=== PATIENT | male | born 1945 | race Caucasian/White ===

== ENCOUNTER 2023-06-02 06:15 | Day surgery (SDC) | payer OTHER, SELFPAY ==
[2023-06-02] VITALS (21 sets, daily range): BP systolic 144–169; BP diastolic 75–92; BMI 29.5
[2023-06-02] MEDS: LOW STRENGTH ASPIRIN 81 MG PO (07:16)
[2023-06-02] MEDS: NSS 1000 IV (08:27)
--- NOTE | 2023-06-02 08:31 | PTCARENOTE ---
Pt recd s/p cath. wa unable to access rt radial DSD intact with tegaderm . + pulse and denies pain.. Comfortable , at bedside.
--- NOTE | 2023-06-02 08:35 | ITS.CL.CATH ---
Underwriter Solicitation Director - Catheterization
Cardiac Catheterization
Procedure Report:
CARDIAC CATHETERIZATION REPORT
Date of Procedure: 06/02/2023
Referring: Alli Coats MD
Indication: Abnormal stress test preop spinal stimulator implant in patient with known CAD status post multivessel PCI (2012, 2014)
HEMODYNAMIC DATA
AO: 142/86
LV: 142/18
LEFT VENTRICULOGRAPHY: Severe inferobasal hypokinesis with EF 47%
CORONARY ANGIOGRAPHY
Dominance: Right
Left Main: Normal
LAD: Widely patent proximal to mid LAD stent (2012) with no restenosis. The moderate-sized first diagonal branch has a widely patent proximal stent. At the distal stent margin there is a 50% stenosis undoubtedly representing restenosis from the
balloon overhang segment following stent deployment in 2012. This lesion was not present on the study from 2014 there are otherwise trivial luminal irregularities in the LAD system.
Circumflex: There is a medium sized ramus intermedius branch with focal 60% proximal stenosis-this lesion was not present on the study from 2014. The circumflex proper gives rise to a tiny OM1 and a huge branching OM 2 which has a widely patent
stent (2012) with no restenosis
RCA: Dominant vessel with widely patent proximal and distal stents (2014). There is a shelf-like 30% proximal RCA stenosis and otherwise mild luminal irregularities in the RCA system
Closure Device: 6 Iranian Angio-Seal RFA. Of note, the patient had an excellent right radial artery pulse and we entered the vessel three times with arterial flow but were unable to pass the soft guidewire more than a centimeter or so suggesting
stricture or occlusion.
Radiation (mGy): 40.6
DAP (cm2.Gy): 3.6
Fluoroscopy time: 1.5 minutes
CONCLUSIONS
1: Systemic hypertension
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
3: Moderate branch vessel (ramus, D1) disease with widely patent LAD, OM 2, and RCA stents
4. Recommend continued medical therapy-okay to proceed with spinal stimulator implant. There will be some small risk of very late stent thrombosis if the implanting surgeon decides that aspirin must be held prior to this procedure. If low-dose
aspirin can be continued there will be essentially no meaningful risk of stent thrombosis
Copy to: Alli Coats MD, Tanja Barker MD
Chester Lindsey MD, [facility], [facility]
--- NOTE | 2023-06-02 11:13 | PTCARENOTE ---
pt d//carlos eduardo with all paper work . Rt radial and rt groin both soft non tender with DSD intact. Amb to the BR to void. gait steady. home to the care of his
== END 2023-06-02 11:17 | disposition home or self-care (01) ==
LOC: CATH 06:15
PROVIDERS: ATTENDING PHYSICIAN Internal Medicine Cardiovascular Disease; FAMILY PHYSICIAN Family Medicine; OTHER PHYSICIAN Internal Medicine Clinical Cardiac Electrophysiology
DX: I25.10 Atherosclerotic heart disease of native coronary artery without angina pectoris (principal); Z95.5 Presence of coronary angioplasty implant and graft; I10 Essential (primary) hypertension; E78.5 Hyperlipidemia, unspecified; Z79.82 Long term (current) use of aspirin
CPT/HCPCS: 93005; 93458; C1760; C1894; Q9967

== ENCOUNTER 2023-11-30 15:01 | Inpatient (IN) | payer OTHER, SELFPAY ==
[2023-11-30 10:36] VITALS: BP 160/93
[2023-11-30 11:01] VITALS: BP 136/82
[2023-11-30 12:07] LABS: Urine Albumin Negative (Neg - Trace); Urine Bilirubin Negative (Negative); Urine Character Clear (Clear); Urine Color Yellow; Urine Glucose Negative (Negative); Urine Ketone Negative (Negative); Urine Leukocyte Negative (Negative); Urine Nitrite Negative (Negative); Urine Occult Blood Negative (Negative); Urine Specific Gravity 1.015 (<1.030); Urine Urobilinogen Negative (Neg - 1+)
[2023-11-30 12:21] LABS: % Basophils 0.4 % (0-2); % Eosinophils 0.2 % (0-6); % Immature Granulocytes 0.3 % (0-0.5); % Monocytes 7.5 % (1.7-9.3); % Neutrophils 75.6 % (42.2-75.2); Absolute Basophils 0.1 10^3/uL (0-0.2); Absolute Monocytes 0.9 10^3/uL (0.1-0.6); Absolute Neutrophils 9.3 10^3/uL (1.4-6.5); Blood Urea Nitrogen 23 mg/dl (9-20); Calcium 9.4 mg/dl (8.4-10.2); Carbon Dioxide 32 mmol/L (22-30); Chloride 100 mmol/L (98-107); Glucose 91 mg/dl (70-99); Hemoglobin 13.5 g/dL (13.0-18.0); Mean Corp Hgb Conc. 33.8 g/dL (33.0-37.0); Mean Corpuscular Hgb 28.5 pg (27.0-31.0); Mean Corpuscular Volume 84.4 fL (80.0-94.0); Mean Platelet Volume 9.4 fL (7.4-10.4); Nucleated Red Blood Cells % 0 % (-); Platelet Count 379 10^3/uL (130-400); Potassium 3.8 mmol/L (3.5-5.1); Red Blood Cell Count 4.74 10^6/uL (4.70-6.10); Red Cell Dist. Width 14.2 % (11.5-14.5); Sodium 138 mmol/L (135-145); White Blood Cell Count 12.3 10^3/uL (4.8-10.8); eGFR > 60.00
[2023-11-30 12:34] LABS: Erythrocyte Sed Rate 29 mm/hour (0-20)
--- NOTE | 2023-11-30 12:46 | ED.GENMED ---
History of Present Illness
General
Chief Complaint: Musculo-Skeletal Complaint
Source: patient
Time Seen by Provider: 11/30/23 11:32
History of Present Illness
History of Present Illness:
78-year-old male with past medical history of chronic back pain status post pain stimulator placement, CAD, hypertension, hyperlipidemia presenting to the emergency department for gradually worsening left lower extremity weakness that is been
chronic however over the last 4 to 5 days patient has had increasing weakness with now inability to ambulate or put weight on his left leg. Patient states that there have been a few times where he has attempted to get up but has fallen back into
his chair or bed due to the weakness. He also notes some tingling sensation on the lateral aspect of his leg. He denies any fevers, chills, rigors, nausea, vomiting. He notes that chronically he has a weaker urinary stream and that this is not
any different today than usual. He has seen Dr. Ham in the past and was scheduled to undergo a left hip injection to see if this would help some of his symptoms and this was scheduled for later this week. Patient also sees pain management Dr.
Amee.
Past History
Past History
ED Past Medical History: CAD, GERD, HTN, Hypercholesterolemia and Other (Chronic back pain)
ED Past Surgical History: Cardiac, Cholecystectomy, Orthopedic and Urological
Social History
Tobacco: Non-smoker
Alcohol: None
Drug: None
Personal:
Living: with family
Review of Systems
Review of Systems
All Other Systems: ROS reviewed and negative except as documented in HPI and ROS
Phy Exam
Physical Exam
Physical Exam:
GENERAL: Alert , in no apparent distress
Head: Normocephalic atraumatic
EYE: Clear conjunctiva
NECK: Supple
ENT: o/p clr, mmm.
CARDIAC: Regular rate and rhythm .
LUNGS: Clear breath sounds bilaterally, no acute respiratory distress, no wheezes/rales/rhonchi
ABDOMEN: Soft, without focal tenderness, no r/g, no cvat
NEUROLOGICAL: Alert and oriented x 3, sensation diminished on the lateral aspect of the left lower leg. Proprioception decreased to the left leg compared to the right, patient is unable to lift his left leg up off the bed at the level of the hip.
Patellar deep tendon reflexes absent on the left. Patient with diminished EHL on the left compared to the right
SKIN: Warm and dry, skin intact.
MUSCULOSKELETAL: No edema, well perfused.
PSYCH: Normal and appropriate interaction.
Scores
Heart Failure Risk
Heart Failure Risk Score: Not Applicable
Heart Score for Chest Pain Patients
STEMI patient?: Not applicable
Withdrawal Assessment of Alcohol
Withdrawal Assessment Completed?: Not applicable
Course
Orders/Labs/Results
Orders:
Orders
11/30/23 11:50
Bladder Scan- Treatment ONCE
PT Consult [Pt Eval And Treat] Urgent
Activity Level: Ambulate
11/30/23 11:55
Basic Metabolic Panel Urgent
CRP [C-Reactive Protein] Urgent
Complete Blood Count/With Diff Urgent
ESR [Erythrocyte Sed Rate] Urgent
Urinalysis Reflex To Culture Urgent
Date Specimen was Collected: 11/30/23
Time Specimen was Collected: 11:53
11/30/23 12:39
CR Hip - LT w/wo Pel 2-3 Vw* Urgent
Comment:
Reason For Exam: pain, decreased ROM
Include a pelvis x-ray?: Yes
11/30/23 14:49
MR Left Hip W/o Routine
Comment:
Reason For Exam: left hip pain
Recent pill cam endoscopy?: No
11/30/23 14:52
Admit/Transfer Patient As Directed
Co-Sign Provider:
Level of Care: Inpatient admission
Assign to:: Medical/Surgical
Physician / Group: reshma
Diagnosis: left hip pain
Reason for Hospitalization: left hip pain
Expected length of stay greater than two midnights?: Yes
ELOS- Estimated Length of Stay in days: 3
I certify the patient meets the requirements for IP care: Yes
PRN Pain Medication Management As Directed
May give lesser potent ordered pain med per pt: No
preference::
Protocol:: Medication orders for pain may NOT be administered in
a manner that defers to patient preference. Follow
all order instructions as written.
Contact provider if ordering parameters for pain need
to be adjusted.
11/30/23 14:53
Code Status As Directed
Resuscitation Status: Full Code
11/30/23 14:55
ORTHOPEDIC CONSULT Routine
Consulting Provider: Carroll Nugent
Was physician already notified: Yes
Abnormal Lab Results
11/30/23
11:55
WBC 12.3 H 10^3/uL
(4.8-10.8)
Absolute Neuts (auto) 9.3 H 10^3/uL
(1.4-6.5)
Absolute Monos (auto) 0.9 H 10^3/uL
(0.1-0.6)
Neutrophils % 75.6 H %
(42.2-75.2)
Lymphocytes % 16.0 L %
(20.5-51.1)
ESR 29 H mm/hour
(0-20)
Carbon Dioxide 32 H mmol/L
(22-30)
BUN 23 H mg/dl
(9-20)
C-Reactive Protein 12.90 H mg/L
(0.0-10.00)
11/30/23 11:55
11/30/23 11:55
Vital Signs
Initial and Last Documented VS:
Initial Vital Signs
Temp Pulse Resp BP Pulse Ox
98.0 F 91 16 160/93 98
11/30/23 10:36 11/30/23 10:36 11/30/23 10:36 11/30/23 10:36 11/30/23 10:36
Last Documented Vital Signs
Temp Pulse Resp BP Pulse Ox
98.0 F 90 15 136/82 99
11/30/23 10:36 11/30/23 14:30 11/30/23 14:30 11/30/23 11:01 11/30/23 12:15
MDM/Problems Addressed
Differential Diagnosis Includes:
Cord impingement, disc herniation, less concern for infection given lack of symptoms for infectious etiology, fracture
MDM/Problems Addressed:
78-year-old male presenting emergency department with acute on chronic left lower extremity weakness, now unable to ambulate despite use of walker. Has had 4 separate falls in the last few days as well. Patient does have neurologic findings on
exam however this does appear to be chronic per the patient and spouse. Will check labs, bladder scan, urine. Anticipate patient will need admission given his inability to ambulate and frequent falls. Will likely need physical therapy. Patient
will likely also need MRI to further assess.
Chronic conditions affecting care: Other (Chronic back pain/neurologic impairment)
*Radiology
Radiology exam reviewed: preliminary read by ED provider (No acute fracture of left hip/pelvis)
*Pulse Oximetry
Patient hypoxic: no
*Employee Relations Assistant Interpretation
Rate: normal
Rhythm: sinus
*Critical Care Note
Total Time (30-74mins, 75-104mins- exclusive of procedures): Not Applicable
Data Reviewed
Review of Other/Old Records Reveals: Labs, Records and Radiology Studies
Source: patient, records and spouse
Patient Management
Discussion with other providers: Hospitalist
Escalation/DeEscalation of care consider admission/obs:
Patient was able to use walker with the physical therapy team however they did note he needed to put almost all of his weight onto the walker and that he did not feel comfortable ambulating with the walker and states he did not feel comfortable
going home. Due to his fall risk will admit for further evaluation. Patient's x-ray findings noted for significant degenerative changes of the left hip and possible avascular necrosis. This can be evaluated further with MRI as needed.
Hospitalist team is aware and accepts for continued evaluation and treatment.
ED Attending Note
-
Portions of this chart may have been created with voice recognition software.� Occasional wrong word or��sound alike� substitutions may have occurred due to the inherent limitations of voice recognition software.
Discharge Plan
Departure
Patient Disposition: Admit
Date of Disposition: 11/30/23
Time of Disposition: 13:49
Presentation/result/management discussed w/ accepting MD/DO: Hospitalist
Discharge Problem:
Weakness of left lower extremity, Dorsalgia
Prescriptions:
No Action
rosuvastatin [Crestor] 40 MG tablet
40 mg PO HS
bethanechol chloride 25 MG tablet
25 mg PO DAILY
nebivolol 2.5 MG tablet
2.5 mg PO DAILY 0RF
famotidine 20 MG tablet
20 mg PO HS Qty: 0 0RF
venlafaxine [Effexor XR] 37.5 mg Capsule,Extended Release 24hr
112.5 mg PO DAILY
hydrocodone-acetaminophen 5-325 mg Tablet
1 tab PO BIDPRN PRN (Reason: moderate pain)
meclizine 25 mg Tablet
25 mg PO DAILYPRN PRN (Reason: before mri or/and test)
calcium polycarbophil [FiberCon] 625 mg Tablet
1,250 mg PO BID
docusate sodium [Colace] 100 mg Capsule
100 mg PO BIDPRN PRN (Reason: constipation)
losartan-hydrochlorothiazide 50-12.5 mg Tablet
1 tab PO DAILY
ibuprofen-acetaminophen [Advil Dual Action] 125-250 mg Tablet
1 tab PO Q8HPRN PRN (Reason: mild pain)
aspirin 81 MG tablet,delayed release (DR/EC)
162 mg PO DAILY
Referrals:
Tanja Barker MD [Family Provider] -
Discharge Date and Time
Print Language: LITHUANIAN
[2023-11-30 13:53] VITALS: BP 136/82; PULSE 87; O2SAT 98
--- NOTE | 2023-11-30 14:16 | HPS.HSE ---
Addendum entered and electronically signed by Pura Ritchie MD 11/30/23 16:23:
see my update note for addendum
Original Note:
Family Physician
-
Family Physician: Tanja Barker
Chief Complaint
-
Left LE pain and weakness
History of Present Illness
78-year-old male with past medical history of chronic back pain status post pain stimulator placement, CAD, hypertension, hyperlipidemia presenting to the emergency department for gradually worsening left lower extremity weakness, left buttocks,
thigh pain progressively getting worse for past 4-6 weeks. patient able to walk shorter distance but his LE gives up or gets buckled up. patient stated four falls within last month. patient stated worsening buttocks pain, radiating to groin and
Upper thigh.He denies any fevers, chills, rigors, nausea, vomiting. denied GARVEY,dizzy or synocpal episode. denied chest pain, sob. denied abdominal pain,n,v,d. denied dysuria or hematuria. He has seen Dr. Ham in the past and was scheduled to undergo
a left hip injection to see if this would help some of his symptoms and this was scheduled for later this week.
admitting for further management.
Medical History
Past Medical History
Past Medical History: Reports Other
Additional Past Medical History:
Hypertension hyperlipidemia GERD depression
, Coronary disease
Past Surgical History: Reports Other
Additional Past Surgical History:
Cholecystectomy
Appendectomy
Cardiac stents
Social History
Tobacco: Former Smoker
Alcohol: Occasional
Drug: None
Personal:
Living: With Family
Family History
Family History: Not pertinent
Allergies / Home Medications
Allergies reflects when Allergies were last updated in [employer].
Home Medications with original date entered in [facility]
Allergy/Medication List:
Allergies
Allergy/AdvReac Type Severity Reaction Status Date / Time
No Known Allergies Allergy Verified 11/30/23 10:38
Home Medications
venlafaxine 150 mg capsule,extended release 24 hr (Effexor XR) 375 mg PO DAILY 10/21/12
losartan 100 mg-hydrochlorothiazide 12.5 mg tablet 1 tab PO DAILY 07/17/14
rosuvastatin 40 mg tablet (Crestor) 40 mg PO HS 09/02/21
bethanechol chloride 25 mg tablet 25 mg PO DAILY 09/25/21
tramadol 50 mg tablet 50 mg PO Q6HPRN PRN pain 09/25/21
acetaminophen 500 mg tablet (Tylenol Extra Strength) 1,000 mg (2 x 500 mg) PO Q6H 09/26/21
aspirin 81 mg tablet,delayed release 2 tab PO DAILY ##0 09/26/21
famotidine 20 mg tablet 20 mg PO HS ##0 09/26/21
nebivolol 2.5 mg tablet 2.5 mg PO DAILY 09/26/21
tamsulosin 0.4 mg capsule 0.4 mg PO HS #5 caps 09/26/21
Review of Systems
-
Constitutional: Reports No Symptoms
EENT: Reports No Symptoms
Respiratory: Reports No Symptoms
Cardiac: Reports No Symptoms
Abdomen/GI: Reports No Symptoms
: Reports No Symptoms
Musculoskeletal: Reports Other (Left buttocks pain radiating to groin and thigh)
Skin: Reports No Symptoms
Neurological: Reports No Symptoms
Endocrine: Reports No Symptoms
Hematologic/Lymphatic: Reports No Symptoms
Psych: Reports No Symptoms
Physical Exam
Vital Signs
Vital Signs
Temp Pulse Resp BP Pulse Ox
98.0 F 87 22 136/82 99
11/30/23 10:36 11/30/23 12:30 11/30/23 12:15 11/30/23 11:01 11/30/23 12:15
Physical Exam
General: Well Developed, Well Nourished and No Apparent Distress
HEENT: NormoCephalic, Moist mucous membranes and Atraumatic
Respiratory: Clear
Cardiac: S1/S2 and Regular Rhythm; No Murmur or Rub
GI: Soft, Non Tender, Non Distended and Normal Bowel Sounds; No Organomegaly
Rectal: Deferred by Provider
Musculoskeletal: No Clubbing, No Cyanosis and No Edema
Skin: No Rash
Neuro: AO x 3 and Nonfocal/grossly intact
Psych: Calm
Laboratory Results
-
11/30/23 11:55
11/30/23 11:55
Data Reviewed
-
Diagnostic Radiology: Report Reviewed by me
Lab Data: Labs Reviewed by me
Impression/Plan
-
#acute on chornic LLE/frequent fall likely sciatica pain
-MRI of left left LE
-PT/OT
-ESR 29, CRP 12.90
-Hip X ray with Severe deformity of the left femoral head, with severe degenerative change of the left hip joint. Left hip changes are new compared to prior CT dated 02/02/2013.Differential considerations include severe osteoarthritis, avascular
necrosis, among others.
-orthopedic consult
#leukocytosis likely stress reaction
-wbc12.3
-UA negative
# Depression
-Effexor continued
#essential hypertension
-BP stable
-Losartan continued
# History of cardiac stents
-Aspirin continued
# Tachycardia
-Nebivolol continued
#DVT prophylaxis
- Lovenox subcu
# CODE STATUS
-Full code
--- NOTE | 2023-11-30 16:11 | W.PN.UPDATE ---
Update Note
Progress Note Update
I saw and examined the patient.
The POINTER MACHINE OPERATOR or PA's note was reviewed and I agree with the note.
Comment: 78 y/o M hx of spinal surgery and pain stimulator, chronic LLE weakness presents with acute weakness and ambulatory dysfunction, associated with episodic L hip/groin pain. He is due to for a steroid injection in the hip on Thursday with
pain management. He denies any loss of bowel/bladder function, no focal weakness in other extremities. no other CVA symptoms. No other complaints.
in ER, MRI studies were ordered.
Physical Exam
General: Well Developed, Well Nourished and No Apparent Distress
HEENT: Normocephalic, Moist mucous membranes and Atraumatic
Respiratory: Clear
Cardiac: S1/S2 and Regular Rhythm; No Murmur or Rub
GI: Soft, Non Tender, Non Distended and Normal Bowel Sounds; No Organomegaly
Rectal: Deferred by Provider
Musculoskeletal: No Clubbing, No Cyanosis and No Edema
Skin: No Rash
Neuro: AO x 3 and Nonfocal/grossly intact
Psych: Calm
Assessment:
Acute on chronic LLE/frequent fall likely sciatica pain
- hip X ray with Severe deformity of the left femoral head, with severe degenerative change of the left hip joint. Left hip changes are new compared to prior CT dated 02/02/2013.Differential considerations include severe osteoarthritis, avascular
necrosis, among others.
- check MRI L spine, pelvis, and L hip
- PT/OT
- ESR/CRP noted, mildly elevated, monitor for now
- orthopedic consult
leukocytosis likely stress reaction
- wbc 12.3
- UA negative
Depression
- Effexor continued
Essential hypertension
- BP stable
- losartan continued
History of cardiac stents
- aspirin continued
Tachycardia
- nebivolol continued
DVT prophylaxis: Lovenox
Code: Full
[2023-11-30 17:19] VITALS: BMI 30.7
[2023-11-30 17:38] VITALS: BP 156/84
[2023-11-30] MEDS: LOVENOX 40 MG SC (17:51)
[2023-11-30] MEDS: PEPCID 20 MG PO (20:42)
[2023-11-30] MEDS: CRESTOR 40 MG PO (20:43)
[2023-11-30] MEDS: FLOMAX 0.4 MG PO (20:43)
[2023-11-30] MEDS: TYLENOL 650 MG PO (20:45)
--- NOTE | 2023-11-30 21:02 | CON.ORTHO ---
Consultation
-
Date/Time Consultation Requested: 3 PM 11/30/2023
Date/Time Consultation Performed: 845 PM 11/30/2023
Requesting Provider: David
Performing Provider: Raffi
Reason for Consultation: Left groin pain
Consultation - Orthopedics
History
HPI: 78-year-old male history of chronic back pain presented to the emergency department with complaints of left groin pain and leg pain and ambulatory dysfunction. He was subsequently admitted to the medical service for ambulatory dysfunction and
orthopedics was consulted for further evaluation and treatment of left groin pain. He has followed with Dr. Ham in the past for back pain is undergone multiple laminectomy procedures according to the patient. Reports that more recently he was seen
by him and told that there was no further surgical options for his chronic back pain. He does have a spinal stimulator and has been following with pain management undergoing periodic injections in his back with good relief. He reports that over
the last month or so has had progressively worsening pain and weakness to the left lower extremity. He actually had an appointment scheduled with his pain management physician to undergo a left hip injection as he had some evidence outpatient basis
of reportedly left hip osteoarthritis. At this evening patient reports both back and buttock pain as well as some left leg weakness. He is also localizing pain to the left groin is made worse with any motion to the left hip as well as with
ambulation. Denies any significant numbness or tingling this evening but does report sensation of heaviness in his leg. Denies any significant change in bowel or bladder habits
Allergies / Home Medications
Past medical history: Hypertension, hyperlipidemia, GERD, coronary disease, lumbar DDD
Past surgical history: Cholecystectomy, appendectomy, laminectomy, placement of cardiac stents
Social history: Former smoker, lives with
Family history not pertinent
Allergy/AdvReac Type Severity Reaction Status Date / Time
No Known Allergies Allergy Verified 11/30/23 10:38
�Medication �Instructions �Recorded
rosuvastatin 40 mg tablet (Crestor) 40 mg PO HS 09/02/21
bethanechol chloride 25 mg tablet 25 mg PO DAILY 09/25/21
famotidine 20 mg tablet 20 mg PO HS ##0 09/26/21
nebivolol 2.5 mg tablet 2.5 mg PO DAILY 09/26/21
Effexor 225 tab PO DAILY 11/30/23
aspirin 81 mg tablet,delayed 162 mg PO DAILY 11/30/23
release
calcium polycarbophil 625 mg 1,250 mg PO BID 11/30/23
tablet (FiberCon)
docusate sodium 100 mg capsule 100 mg PO BIDPRN PRN constipation 11/30/23
(Colace)
hydrocodone 5 mg-acetaminophen 325 1 tab PO BIDPRN PRN moderate pain 11/30/23
mg tablet
ibuprofen 125 mg-acetaminophen 250 1 tab PO Q8HPRN PRN mild pain 11/30/23
mg tablet (Advil Dual Action)
losartan 50 mg-hydrochlorothiazide 1 tab PO DAILY 11/30/23
12.5 mg tablet
meclizine 25 mg tablet 25 mg PO DAILYPRN PRN before mri 11/30/23
or/and test
Vital Signs / Lab Results
Temp Pulse Resp BP Pulse Ox
98.3 F 85 20 156/84 99
11/30/23 17:38 11/30/23 17:38 11/30/23 17:38 11/30/23 17:38 11/30/23 17:38
11/30/23 11:55
11/30/23 11:55
10 point review systems reviewed and negative unless otherwise stated
General: Pleasant, no acute distress at rest
Musculoskeletal left lower extremity
Skin intact, no erythema, no ecchymosis
There is restriction with passive range of motion of left hip does reproduce groin pain there is no significant tenderness palpation over groin or lateral trochanteric flare
Patient with weakness with hip flexion although does have fairly good strength with resisted knee extension ankle dorsiflexion, great toe extension
Sensation is intact to light touch and equal in all distributions distally
No clonus
Brisk cap refill distally
Diagnostic studies
X-rays of left hip taken during this hospitalization reviewed by myself. There is significant loss of sphericity of the left femoral head with evidence of collapse and significant joint space narrowing. I am not able to access any previous imaging
of the left hip and PACS but there is noted in the radiology report that compared to the CT scan dated 02/02/2023 this did represent considerable change
Assessment / Plan
78-year-old male history of chronic back pain with worsening left groin pain and weakness with radiographic evidence and clinical evidence of left hip DJD. I had a long detailed discussion the patient regarding diagnosis and treatment options.
Certainly it somewhat difficult to accurately understand how much of his symptoms are referred from his chronic back pain versus related to his left hip osteoarthritis. Would not recommend any acute surgical intervention. We discussed treatment
options. He did have a scheduled on outpatient basis an intra-articular left hip injection both for therapeutic and diagnostic purposes. We discussed following up with pain management physician to have this performed. We also discussed following
up with hip and knee specialist. He does have a history of left total knee arthroplasty performed by Dr. Beth MIRANDA in the past. Certainly would recommend following up with him to get his opinion regarding treatment options. We did discuss that
typically you have to wait at least 3 months following the intra-articular injection before consideration of any arthroplasty type procedure. He stated his understanding to this. There is some documentation of the obtaining MRIs of his hip and
back. I am not sure that this will change any acute management but might give us better understanding if there is in fact evidence of avascular necrosis of the head of the left femur. Please reach out any questions or concerns.
[2023-11-30] MEDS: ULTRAM 50 MG PO (22:56)
[2023-11-30 23:37] VITALS: BP 143/86
[2023-12-01] MEDS: TORADOL 15 MG IV (01:12)
[2023-12-01] MEDS: MORPHINE SULFATE 1 MG IV (06:10)
[2023-12-01 07:01] LABS: Hematocrit 38.1 % (39.0-52.0); Hemoglobin 12.7 g/dL (13.0-18.0); Mean Corp Hgb Conc. 33.3 g/dL (33.0-37.0); Mean Corpuscular Hgb 28.9 pg (27.0-31.0); Mean Corpuscular Volume 86.8 fL (80.0-94.0); Mean Platelet Volume 9.5 fL (7.4-10.4); Platelet Count 334 10^3/uL (130-400); Red Blood Cell Count 4.39 10^6/uL (4.70-6.10); Red Cell Dist. Width 13.9 % (11.5-14.5); White Blood Cell Count 11.8 10^3/uL (4.8-10.8)
[2023-12-01 07:22] LABS: Blood Urea Nitrogen 21 mg/dl (9-20); Carbon Dioxide 29 mmol/L (22-30); Chloride 99 mmol/L (98-107); Estimated Creatinine Clearance 82 ml/min; Glucose 106 mg/dl (70-99); Potassium 3.9 mmol/L (3.5-5.1); Sodium 136 mmol/L (135-145); eGFR > 60.00
[2023-12-01 07:36] VITALS: BP 156/96
[2023-12-01] MEDS: URECHOLINE 25 MG PO (07:46)
[2023-12-01] MEDS: HYZAAR 100-12.5 TABLET 1 TAB PO (07:47)
[2023-12-01] MEDS: EFFEXOR XR 225 MG PO (07:47)
[2023-12-01] MEDS: ASPIR LOW (ENTERIC COATED) 162 MG PO (07:47)
[2023-12-01] MEDS: BYSTOLIC 2.5 MG PO (07:47)
[2023-12-01 08:10] LABS: Hepatitis C Antibody Negative (Negative)
[2023-12-01] MEDS: ANTIVERT 25 MG PO ×2 (08:52→16:26)
--- NOTE | 2023-12-01 09:48 | W.PN.HOSP.TC ---
Today's Communication/Plan
-
MRI L hip
pain control
PT/OT
Assessment / Plan
Assessment / Plan
Assessment:
Acute on chronic LLE/frequent fall likely sciatica pain
- hip X ray with Severe deformity of the left femoral head, with severe degenerative change of the left hip joint. Left hip changes are new compared to prior CT dated 02/02/2013.Differential considerations include severe osteoarthritis, avascular
necrosis, among others.
- check MRI L hip
- ortho consulted noted
- PT/OT evals pending
- ESR/CRP noted, mildly elevated, monitor for now
- patient consider THR and for now has cancelled L hip CS injection that was planned tomorrow outpatient with pain management.
leukocytosis likely stress reaction
- wbc 12.3 now 11.8
- UA negative
Depression
- Effexor continued
Essential hypertension
- BP stable
- losartan continued
History of cardiac stents
- aspirin continued
Tachycardia
- nebivolol continued
DVT prophylaxis: Lovenox
Code: Full
Anticipated Discharge: Within 24 hours
Subjective/Interval History
-
Date of Service: December 01, 2023
for MRI today
no complaints
Objective Data
-
Labs:
Laboratory Results
12/01/23
06:25
WBC 11.8 H
Hgb 12.7 L
Hct 38.1 L
Plt Count 334
Sodium 136
Potassium 3.9
Chloride 99
Carbon Dioxide 29
BUN 21 H
Creatinine 0.8
Glucose 106 H
Calcium 9.0
Vital Signs:
Vital Signs
Temp Pulse Resp BP Pulse Ox
97.7 F 89 20 156/96 98
12/01/23 07:36 12/01/23 07:36 12/01/23 07:36 12/01/23 07:36 12/01/23 07:36
I&O
11/30/23 12/01/23 12/02/23
06:59 06:59 06:59
Intake Total 240 / 240
Output Total 600 / 600
Balance -360 / -360
Physical Exam
-
General: No Apparent Distress
HEENT: Normocephalic and Atraumatic
Respiratory: Negative Wheezes
Cardiac: Regular Rhythm and S1/S2
GI: Soft
Neuro: AO x 3
Psych: Calm
Data Reviewed
-
Total Time Spent with Patient (in minutes): 42
Labs: Labs Reviewed by me
--- NOTE | 2023-12-01 12:30 | W.DS.TRANS ---
DC Summary - T [employer]
-
Discharge Instructions:
Discharge Diagnosis/Procedures L hip pain, joint pain, ambulatory dysfunction
Diet Low Cholesterol
Activity As tolerated
Bathing Restrictions None
Other Services OT,PT
Instructions:
Stand-Alone Forms:
Changes to Home Medications: No
Discharge Medications:
DC Medications w/original date entered in [employer]
rosuvastatin 40 mg tablet (Crestor) 40 mg PO HS High Cholesterol 09/02/21
bethanechol chloride 25 mg tablet 25 mg PO DAILY 09/25/21
famotidine 20 mg tablet 20 mg PO HS ##0 09/26/21
nebivolol 2.5 mg tablet 2.5 mg PO DAILY 09/26/21
Effexor 225 tab PO DAILY Mental Health/Anxiety 11/30/23
aspirin 81 mg tablet,delayed release 162 mg PO DAILY Blood Clot Prevention/Tx 11/30/23
calcium polycarbophil 625 mg tablet (FiberCon) 1,250 mg PO BID Constipation 11/30/23
docusate sodium 100 mg capsule (Colace) 100 mg PO BIDPRN PRN constipation 11/30/23
hydrocodone 5 mg-acetaminophen 325 mg tablet 1 tab PO BIDPRN PRN moderate pain 11/30/23
ibuprofen 125 mg-acetaminophen 250 mg tablet (Advil Dual Action) 1 tab PO Q8HPRN PRN mild pain 11/30/23
losartan 50 mg-hydrochlorothiazide 12.5 mg tablet 1 tab PO DAILY Blood Pressure 11/30/23
meclizine 25 mg tablet 25 mg PO DAILYPRN PRN before mri or/and test 11/30/23
Home Medication Changes
Pending Results: No
Total time spent discharging patient (in min): 41
[2023-12-01 12:49] VITALS: BP 142/86; PULSE 81
[2023-12-01] MEDS: ULTRAM 50 MG PO (12:58)
--- NOTE | 2023-12-01 13:02 | CM ---
Initial assessment obtained by director case management.
Patient lives at home with in 2 story home with full bath on 1st floor.
1 step to get into home.
Patient states has a bed on 1st floor.
Ambulates with a walker. Driving prior to admission.
Discussed visiting nurse with patient and he declined.
PCP: Shannon Coello
Pharmacy: [facility]
Plan: Patient discharged to home. to transport.
[2023-12-01 15:26] VITALS: BP 134/76
== END 2023-12-01 17:29 | disposition home or self-care (01) | DRG 552 ==
LOC: 4 WEST ACU 15:01
PROVIDERS: Physician Assistant Medical; Registered Nurse; ADMITTING PHYSICIAN Internal Medicine; EMERGENCY PHYSICIAN Emergency Medicine; FAMILY PHYSICIAN Family Medicine; OTHER PHYSICIAN Orthopaedic Surgery
DX: M54.32 Sciatica, left side (principal); M25.552 Pain in left hip; G89.29 Other chronic pain; M54.9 Dorsalgia, unspecified; I25.10 Atherosclerotic heart disease of native coronary artery without angina pectoris; K21.9 Gastro-esophageal reflux disease without esophagitis; D72.829 Elevated white blood cell count, unspecified; M16.12 Unilateral primary osteoarthritis, left hip; R29.6 Repeated falls; M51.36 Other intervertebral disc degeneration, lumbar region; F32.A Depression, unspecified; I10 Essential (primary) hypertension; E78.00 Pure hypercholesterolemia, unspecified; Z90.49 Acquired absence of other specified parts of digestive tract; Z79.82 Long term (current) use of aspirin; Z95.5 Presence of coronary angioplasty implant and graft; Z87.891 Personal history of nicotine dependence
CPT/HCPCS: 51798; 72072; 72110; 72195; 73502; 73721; 80048; 81003; 85025; 85027; 85652; 86140; 86803; 97166; 97530; 97535; 99285

== ENCOUNTER → 2023-12-07 11:06 | Outpatient (REF) | payer OTHER, SELFPAY ==
[2023-12-07 11:20] VITALS: BP 143/72; BP_SYST 80
== END ==
LOC: RADI 11:06
PROVIDERS: ATTENDING PHYSICIAN Orthopaedic Surgery Sports Medicine; FAMILY PHYSICIAN Family Medicine
DX: M25.552 Pain in left hip (principal); M25.852 Other specified joint disorders, left hip
CPT/HCPCS: 10160; 76942

== ENCOUNTER 2024-02-04 16:49 | Inpatient (IN) | payer OTHER, SELFPAY ==
[2024-02-04] VITALS (19 sets, daily range): BP systolic 86–135; BP diastolic 54–107; BMI 35.1; BMI 33.4
--- NOTE | 2024-02-04 14:46 | EDRN ---
Kira Kelly PA in room w/ pt at this time.
--- NOTE | 2024-02-04 14:53 | ED.GENMED ---
History of Present Illness
General
Chief Complaint: Heart Rate Problem
Source: patient and spouse
Time Seen by Provider: 02/04/24 14:34
History of Present Illness
History of Present Illness:
78-year-old male with a past medical history of CAD status post coronary stenting, hypertension, hyperlipidemia, status post recent left total knee replacement presenting to the emergency department at request of primary care provider with concern
for possible CHF. Patient has endorsed at least 1 week of bilateral lower extremity edema and some shortness of breath, at appointment today was found to have edema and exertional dyspnea so was advised to come to the ER for further evaluation.
And follow-up visit with Ortho following his knee surgery patient did have some edema of the left leg but this was reportedly normal per orthopedics but now patient with bilateral edema. He denies any cough, palpitations, fevers or infectious
symptoms presently but notes that last week he did have a mild upper respiratory infection with patient stating all symptoms seem to be resolved now. Social history was noted for former smoker, quit 50 years ago, and has 2-3 drinks per week.
Patient is on two 81 mg aspirins since his surgery and reports good compliance with this.
Past History
Past History
ED Past Medical History: CAD, GERD, HTN, Hypercholesterolemia and Other (Chronic back pain)
ED Past Surgical History: Cardiac, Cholecystectomy, Orthopedic and Urological
Social History
Tobacco: Former smoker
Alcohol: Occasional
Drug: None
Personal:
Living: with family
Review of Systems
Review of Systems
All Other Systems: ROS reviewed and negative except as documented in HPI and ROS
Phy Exam
Physical Exam
Physical Exam:
GENERAL: Alert , in no apparent distress
HEAD: NCAT
EYE: clear conjunctiva
NECK: Supple
ENT: mmm.
CARDIAC: Irregularly irregular, tachycardic rate between 125-151bpm
LUNGS: faint rales posterior base, no tachypnea, no accessory muscle use
ABDOMEN: Soft, without focal tenderness, no r/g, no cvat
NEUROLOGICAL: Alert and oriented
SKIN: Warm and dry, skin intact.
MUSCULOSKELETAL:significant 2+ b/l LE edema, left slightly worse than right. Well healed surgical incision anteriorly without signs of infection, well perfused.
PSYCH: Normal and appropriate interaction.
Scores
[id number] Score for Afib Stroke Risk
Age in Years (65=0, 65-74=1, >/=75=2): > or = 75
Sex (Female=+1): Male
Congestive Heart Failure History (Yes=+1): Yes
Hypertension History (Yes=+1): Yes
Stroke/TIA/Thromboembolism History (Yes=+2): No
Vascular Disease History (Yes=+1): No
Diabetes Mellitus (Yes=+1): No
Score: 4
Anticoagulation Recommendations: Recommend anticoagulation (as validated in nonvalvular fib)
Heart Failure Risk
Heart Failure Risk Score: Yes
History of Stroke or TIA: No
History of intubation for respiratory distress: No
Heart rate on ED arrival >/= 110: Yes
SaO2 <90% on arrival on room air: No
HR >/=110 during 3min walk test (or too ill to perform test): Yes
ECG has acute ischemic changes: No
Urea >/=12mmol/L (BUN 33.6mg/dL): No
Serum CO2>/=35mmol/L: No
Troponin I or T elevated to DC Level (0.4mg/dL): No
NT-proBNP >/=5,000ng/L (5,000pg/ml): Yes
HF Risk Score: 3
Admission Status: HIGH RISK 15.9% Consider SNF treatment or admission to hospital
Heart Score for Chest Pain Patients
STEMI patient?: Not applicable
Withdrawal Assessment of Alcohol
Withdrawal Assessment Completed?: Not applicable
Course
Orders/Labs/Results
Orders:
Orders
02/04/24 14:27
Electrocardiogram (*1) Urgent
Reason for Study: Shortness of Breath
EKG- Treatment ONCE
02/04/24 14:49
Diltiazem HCl [Cardizem] 10 mg IV NOW STA
Furosemide [Lasix] 40 mg IV NOW STA
Venous Doppler Lwr Ext Bilat [US Periph Venous LOWER Ext Rod] Urgent
Comment:
Reason For Exam: recent surgery, edema
02/04/24 14:50
Cardiac Monitoring- Treatment ONCE
CR Chest - 2 Views Urgent
Comment:
Reason For Exam: SOB, new onset afib
02/04/24 14:59
Basic Metabolic Panel Urgent
Complete Blood Count/With Diff Urgent
Ferritin Urgent
Folate Urgent
Iron Urgent
Magnesium Urgent
NT-proBNP Urgent
PTT Urgent
Prothrombin Time Urgent
TSH Urgent
Total Iron Binding Urgent
Vitamin B12 Urgent
Comment: IRON,FERRITIN,TIBC,FOLATE,B12 ADDED ON BY FLOOR 4:20PM 02-04-24
02/04/24 Dinner
Cholesterol Lowering
At Your Request: Full Participation
Does patient need a safe tray?: No
Cholesterol Lowering: Sodium, 2 Gram
Diltiazem 125 mg/125 ml Nss [Cardizem] 125 mg in 125 ml IV PER PROTOCOL
Initial dose in mg/hr, then titrate:: 5
Titrate to keep:: Heart rate 80-100 bpm
Titrate by mg/hr:: 5 mg/hr
Frequency of titrations (minutes):: 15
Maximum dose in mg/hr:: 15
02/04/24 16:19
Add On- LAB Routine
Tests Added?: iron, ferritin, tibc, folate, vit b12
02/04/24 16:26
Admit/Transfer Patient As Directed
Co-Sign Provider:
Level of Care: Inpatient admission
Assign to:: IVU
Physician / Group: Jagjit
Diagnosis: Afib / CHF
Reason for Hospitalization: Cardizem drip
Expected length of stay greater than two midnights?: Yes
ELOS- Estimated Length of Stay in days: 3
I certify the patient meets the requirements for IP care: Yes
02/04/24 16:30
PRN Pain Medication Management As Directed
May give lesser potent ordered pain med per pt: Yes
preference::
Protocol:: Medication orders for pain may be administered in a
manner that supports deferring to patient preference
when the pt is:
- Requesting an ordered lesser potent pain medication.
Least to most potent pain medications are defined
as: acetaminophen < NSAID < tramadol < opioids
(morphine, oxycodone, hydromorphone).
- Requesting a lesser dose of the same medication IF
ORDERED.
- Requesting a less intrusive route of administration
if both routes are prescribed by the provider (PO <
IV).
02/04/24 16:34
Code Status As Directed
Resuscitation Status: Full Code
02/04/24 18:33
Echo 2D MMode Color/Doppler Routine
Reason for Study: heart failure
CARDIOLOGY CONSULT Routine
Consulting Provider: Delfino Henning
Was physician already notified: Yes
HF DIETARY CONSULT Routine
HF EDUCATOR CONSULT Routine
Comment:
Activity As Directed
Activity Level: Out of Bed- Chair
Hemetest Stools As Directed
Comment: Notify Physician of any positive results; May Stop if Negative x 3
Intake/ Output As Directed
Frequency: Per unit guidelines
Patient Education As Directed
Type: CHF folder
Comment: give on admission. Document in Interdisciplinary Education record
Sleep Apnea Assessment by RN As Directed
Comment:
Physician Instructions:
Vital Signs As Directed
Frequency: Other
Additional Instructions:: Q12 or per unit guidelines if more frequent.
Weight As Directed
Frequency: Daily
Type of Scale: Standing Scale
Comment: Daily morning weight. If unable to stand, use balanced bed scale.
Weight As Directed
Frequency: Once
Type of Scale: Standing Scale
Comment: Upon Admission. If unable to stand, use balanced bed scale.
Pulse Ox/cont/shift [RESP] Routine
Quantity: 1
Special Instructions: Daily pulse oximetry at rest. If greater than 92% at rest also obtain pulse oximetry
while ambulating as tolerated.
Ot Eval And Treat Routine
Pt Eval And Treat Routine
Activity Level: Out of Bed-Early Mobility
DX Deep Vein Thrombosis Video Routine
02/04/24 19:00
Tamsulosin [Flomax] 0.4 mg PO QPM
02/04/24 22:00
Rosuvastatin Calcium [Crestor] 40 mg PO HS
02/05/24 06:00
Basic Metabolic Panel IN AM
Cardiovascular Evaluation IN AM
Complete Blood Count/No Diff IN AM
Magnesium IN AM
02/05/24 08:00
Furosemide [Lasix] 40 mg IV BID AT 0800,1600
Nebivolol HCl [Bystolic] 2.5 mg PO DAILY
Venlafaxine Extended Release [Effexor Xr] 225 mg PO DAILY
tadalafil 5 mg PO DAILY
02/06/24 06:00
Basic Metabolic Panel IN AM
02/07/24 06:00
Basic Metabolic Panel IN AM
Abnormal Lab Results
02/04/24
14:59
RBC 3.27 L 10^6/uL
(4.70-6.10)
Hgb 9.2 L g/dL
(13.0-18.0)
Hct 28.0 L %
(39.0-52.0)
MCHC 32.9 L g/dL
(33.0-37.0)
RDW 15.3 H %
(11.5-14.5)
Absolute Neuts (auto) 6.7 H 10^3/uL
(1.4-6.5)
Absolute Monos (auto) 0.9 H 10^3/uL
(0.1-0.6)
Lymphocytes % 19.0 L %
(20.5-51.1)
PT 15.3 H Sec
(11.4-14.6)
APTT 37.9 H Sec
(23.4-35.0)
Sodium 134 L mmol/L
(135-145)
Glucose 100 H mg/dl
(70-99)
Iron 39 L ug/dl
(49-181)
% Saturation 11 L %
(20-50)
Folate > 20.0 H ng/ml
(2.76-20)
02/04/24 14:59
02/04/24 14:59
Vital Signs
Initial and Last Documented VS:
Initial Vital Signs
Temp Pulse Resp BP Pulse Ox
98.9 F 128 18 111/87 96
02/04/24 14:32 02/04/24 14:32 02/04/24 14:32 02/04/24 14:32 02/04/24 14:32
Last Documented Vital Signs
Temp Pulse Resp BP Pulse Ox
98.0 F 122 24 125/94 96
02/04/24 18:54 02/04/24 18:47 02/04/24 18:54 02/04/24 18:47 02/04/24 18:54
MDM/Problems Addressed
Differential Diagnosis Includes:
CHF, arrhythmia, CAD, PE, myocarditis/pericarditis given recent URI
MDM/Problems Addressed:
78-year-old male presenting to the emergency department for evaluation at the request of primary care provider for bilateral lower extremity edema and concern for CHF. Vital signs from patient's visit were reviewed and patient at that time had a
normal heart rate but unable to tell if this was a normal sinus rhythm. On arrival here patient found to be significantly tachycardic and on EKG done in triage was found to be in a new onset A-fib. I suspect patient's edema and shortness of breath
are likely related to this new onset A-fib. Due to patient's degree of tachycardia will treat with Cardizem bolus and drip. Patient is not a candidate for cardioversion at this time given he is been having symptoms for at least 1 week and unable
to ascertain whether this was related to A-fib or other cardiopulmonary issue. I suspect that patient's recent viral URI is the likely culprit for the new onset A-fib. Given his recent surgery will also workup for DVT/PE. Anticipate admission
Chronic conditions affecting care: CAD
*Radiology
Radiology exam reviewed: radiology read reviewed
*Pulse Oximetry
Patient hypoxic: no
*EKG
Interpreted by ED Provider?: Yes
Comparison EKG: changes noted
Heart Rate: 128
Rate: tachycardiac
Rhythm: a-fib
Bodfish: left axis deviation
*Air/Ocean Export Clerk Interpretation
Rate: tachycardiac
Rhythm: a-fib
*Critical Care Note
Total Time (30-74mins, 75-104mins- exclusive of procedures): 30
comment:
Critical care statement: A total of 30 minutes of critical care time was provided for this patient. This includes management of unstable vital signs, evaluation of the patient at bedside, reviewing the patient's pertinent medical records, discussion
with consultants, review of old EKGs and review of pertinent medical records. This time with separate from time utilized to perform the aforementioned documented procedures
Data Reviewed
Review of Other/Old Records Reveals: Labs, Records and Discharge Summary
Source: patient, records and spouse
Patient Management
Discussion with other providers: Hospitalist
Escalation/DeEscalation of care consider admission/obs:
Hospitalist team accepts for continued evaluation and treatment of new onset afib and CHF
ED Attending Note
-
Portions of this chart may have been created with voice recognition software.� Occasional wrong word or��sound alike� substitutions may have occurred due to the inherent limitations of voice recognition software.
Discharge Plan
Departure
Patient Disposition: Admit
Date of Disposition: 02/04/24
Time of Disposition: 15:38
Presentation/result/management discussed w/ accepting MD/DO: Hospitalist
Discharge Problem:
Atrial fibrillation, new onset, CHF (congestive heart failure), Anemia
Interventions
Interventions:
*Risk Screen - Suicide Last Done: 02/04/24 14:51
*General Assessment Last Done: 02/04/24 14:28
*Neglect/Abuse Screening Last Done: 02/04/24 14:51
ED- Fall Risk Assessment Last Done: 02/04/24 14:51
*ED COVID-19 Vaccine History Last Done: 02/04/24 14:52
ED- Cardiac Assessment Last Done: 02/04/24 15:15
ED- Pulmonary Assessment Last Done: 02/04/24 15:15
ED-Skin Assessment Last Done: 02/04/24 15:15
[2024-02-04] MEDS: LASIX 40 MG IV (15:03)
[2024-02-04] MEDS: CARDIZEM 10 MG IV (15:04)
[2024-02-04 15:09] LABS: % Basophils 0.5 % (0-2); % Eosinophils 1.3 % (0-6); % Immature Granulocytes 0.4 % (0-0.5); % Monocytes 9.2 % (1.7-9.3); % Neutrophils 69.6 % (42.2-75.2); Absolute Basophils 0.1 10^3/uL (0-0.2); Absolute Eosinophils 0.1 10^3/uL (0-0.7); Absolute Lymphocytes 1.8 10^3/uL (1.2-3.4); Absolute Monocytes 0.9 10^3/uL (0.1-0.6); Absolute Neutrophils 6.7 10^3/uL (1.4-6.5); Hemoglobin 9.2 g/dL (13.0-18.0); Mean Corp Hgb Conc. 32.9 g/dL (33.0-37.0); Mean Corpuscular Hgb 28.1 pg (27.0-31.0); Mean Corpuscular Volume 85.6 fL (80.0-94.0); Mean Platelet Volume 8.8 fL (7.4-10.4); Nucleated Red Blood Cells % 0 % (-); Platelet Count 361 10^3/uL (130-400); Red Blood Cell Count 3.27 10^6/uL (4.70-6.10); Red Cell Dist. Width 15.3 % (11.5-14.5); White Blood Cell Count 9.6 10^3/uL (4.8-10.8)
[2024-02-04] MEDS: CARDIZEM 125 IV (15:10)
[2024-02-04 15:21] LABS: PT 15.3 Sec (11.4-14.6)
[2024-02-04 15:22] LABS: APTT 37.9 Sec (23.4-35.0)
[2024-02-04 15:29] LABS: NT-proBNP 6070 pg/ml
[2024-02-04 15:33] LABS: Blood Urea Nitrogen 17 mg/dl (9-20); Calcium 8.7 mg/dl (8.4-10.2); Carbon Dioxide 22 mmol/L (22-30); Chloride 98 mmol/L (98-107); Estimated Creatinine Clearance 88 ml/min; Glucose 100 mg/dl (70-99); Potassium 4.1 mmol/L (3.5-5.1); Sodium 134 mmol/L (135-145); eGFR > 60.00
[2024-02-04 15:52] LABS: TSH 1.67 uIU/ml (0.47-4.68)
--- NOTE | 2024-02-04 16:13 | W.PN.UPDATE ---
Addendum entered and electronically signed by Justina Danielson MD 02/04/24 17:44:
Drop in Hg in setting of recent hip replacement (left). No evidence of active bleeding.
monitor closely on blood thinners
Original Note:
Update Note
Progress Note Update
This is an addendum to H&P written by JONATHAN Martinez
I saw and examined the patient.
The CHANGE OF ADDRESS CLERK's note was reviewed and I agree with the note.
Comment:
Mr. Westley Flores is a 78 yo man with hx CAD s/p PCI 2012, 2014, GERD, HTN, HLD presents to the ER for gradually worsening left lower extremity weakness that is chronic but over past several days he has been unable to bear weight. He was found to be
in new afib with RVR with heart failure
Triage VS: T 98.9, P 128, RR 18, BP 11/87, SpO2 96%
LABS: WBC 9.6, Hg 9.2, PLT 361, Na 134, K+ 4.1, CO2 22, BUN 17, Cr 0.8, Glucose 100
EKG: Afib with RVR 128
Atrial Fibrillation with RVR
-started on IV Diltiazem gtt in the ER, will continue
-admit to IVU
-IV Heparin gtt per cardiology
-consider cardioversion
Heart Failure reduced EF
-on cardiac cath 06/10 EF was 47%
-continue diuresis patient responding well to lasix 40mg IV
-TTE
-low salt diet, fluid restriction
CAD s/p PCI
GERD
Essential HTN
-continue Losartan
-hold HCTZ
HLD
-CABLE WAY OPERATOR Crestor
Remainder of plan per H&P
Time spent on patient evaluation 76 minutes
--- NOTE | 2024-02-04 16:16 | EDRN ---
Pt was monica
--- NOTE | 2024-02-04 16:18 | HPS.HSE ---
Family Physician
-
Family Physician: Tanja Barker
Chief Complaint
-
Lower Extremity Edema
History of Present Illness
Patient is a 78 yo male with hx of HTN, CAD s/p multiple stents with last one placed in 2014, chronic back pain with spinal stimulator in place, and left hip replacement on 12/31, presents with bilateral leg swelling and exertional SOB. His symptoms
began 1.5-2 weeks ago when he developed right lower leg swelling. He notes his left lower leg was already swollen from his recent hip surgery. He also developed exertional SOB with chest congestion, and he has been coughing up clear mucus. He says
his dyspnea is slightly worse when lying flat and that he's been feeling occasional heart palpitations while lying flat. He reports 7lb weight gain in the last week. He denies a hx of diagnosed sleep apnea, but notes the anesthesiologist during his
recent hip surgery suggested a sleep studies.
Medical History
Past Medical History
Past Medical History: Reports Other
Additional Past Medical History:
Coronary Artery Disease
Essential Hypertension
Hyperlipidemia
Depression
GERD
BPH
Chronic Back Pain
Past Surgical History: Reports Other
Additional Past Surgical History:
Appendectomy
Cholecystectomy
Left Knee Replacement
Left Hip
L2-L5 Laminectomy
Spine Stimulator
Penile Prosthesis
Social History
Tobacco: Former Smoker
Alcohol: Occasional
Drug: None
Personal:
Living: With Family
Family History
Family History: Not pertinent
Allergies / Home Medications
Allergies reflects when Allergies were last updated in [facility].
Home Medications with original date entered in [facility]
Allergy/Medication List:
Allergies
Allergy/AdvReac Type Severity Reaction Status Date / Time
No Known Allergies Allergy Verified 02/04/24 14:26
Home Medications
rosuvastatin 40 mg tablet (Crestor) 40 mg PO HS High Cholesterol 09/02/21
nebivolol 2.5 mg tablet 2.5 mg PO DAILY 09/26/21
aspirin 81 mg tablet,delayed release 81 mg PO BID Blood Clot Prevention/Tx 11/30/23
calcium polycarbophil 625 mg tablet (FiberCon) 1,250 mg PO BID Constipation 11/30/23
docusate sodium 100 mg capsule (Colace) 100 mg PO BIDPRN PRN constipation 11/30/23
losartan 50 mg-hydrochlorothiazide 12.5 mg tablet 1 tab PO DAILY Blood Pressure 11/30/23
meclizine 25 mg tablet 25 mg PO DAILYPRN PRN before mri or/and test 11/30/23
acetaminophen 650 mg tablet,extended release (Tylenol Arthritis Pain) 1,300 mg PO [id number] PRN mild pain 02/04/24
alfuzosin 10 mg tablet,extended release 24 hr 10 mg PO QPM 02/04/24
famotidine 20 mg tablet 20 mg PO TIDPRN PRN stomach issues 02/04/24
guaifenesin 600 mg tablet, extended release 12 hr (Mucinex) 600 mg PO [id number] PRN conjestion 02/04/24
tadalafil 5 mg tablet 5 mg PO DAILY 02/04/24
venlafaxine 75 mg capsule,extended release 24 hr 225 mg PO DAILY 02/04/24
Review of Systems
-
History Source: Patient
A 12 point ROS was completed and negative except as noted: Yes
Constitutional: Denies Fever or Chills
Respiratory: Denies Cough or Trouble Breathing
Cardiac: Denies Chest Pain or Palpitations
Abdomen/GI: Denies Abdominal Pain, Nausea, Vomiting, Diarrhea or Constipated
Physical Exam
Vital Signs
Vital Signs
Temp Pulse Resp BP Pulse Ox
98.9 F 116 22 126/95 100
02/04/24 14:32 02/04/24 15:15 02/04/24 15:15 02/04/24 15:15 02/04/24 15:15
Physical Exam
General: Comfortable and Conversant
HEENT: Anicteric and Moist mucous membranes
Respiratory: Clear, Non Labored Respirations and Decreased Breath Sounds (Bilateral pleural effusions)
Cardiac: S1/S2, Irregular Rhythm and Tachycardia
GI: Soft and Non Tender
Musculoskeletal: No Clubbing, No Cyanosis and Other (+2 pitting edema bilateral lower ext)
Skin: Warm and Dry
Neuro: Awake, Alert, Oriented and Nonfocal/grossly intact
Psych: Calm
Laboratory Results
-
02/04/24 14:59
02/04/24 14:59
Laboratory Results
PT 15.3 Sec (11.4-14.6) H 02/04/24 14:59
INR 1.20 02/04/24 14:59
APTT 37.9 Sec (23.4-35.0) H 02/04/24 14:59
Data Reviewed
-
Lab Data: Labs Reviewed by me
Old Records: Reviewed
Impression/Plan
-
Atrial Fibrillation with Rapid Ventricular Response
-Consult Cardiology
-Continue Diltiazem drip
-Defer anticoagulation decision to Cardiology
Acute Heart Failure, likely preserved EF triggered by rapid a-fib
-Check Echo
-Continue Lasix
-Monitor Is&Os and Daily Weights
Normocytic Anemia
-Interval drop from 13.5 to 9.2 over past 2 months - Likely related to blood loss following recent hip replacement
-Check iron studies
-Heme-test stools
-Recheck Hgb in AM
Coronary Artery Disease s/p Stent (Most recent 2014)
-Continue aspirin
Essential Hypertension
-Continue losartan and nebivolol
-Hold HCTZ
Hyperlipidemia
-Continue Crestor
Depression
-Continue Effexor
BPH
-Continue alfuzosin and tadalafil
Chronic Back Pain s/p Spinal Stimulator
DVT proph: Lovenox, pending anticoagulation decision from cardiology
Code Status: Full Code
--- NOTE | 2024-02-04 16:37 | EDRN ---
US was called by tech and still in US room at 1615. This RN called after pt had been in US 55 minutes and was told US took longer R/T pt needing to void in urinal frequently (post Lasix). This RN was informed pt was enroute to room but pt just
returned after xray. HR on return 130 bpm and cardizem off as pump battery had . Cardizem restarted and pt placed on conveyor monitor.
[2024-02-04 16:53] LABS: Iron 39 ug/dl (49-181)
[2024-02-04 17:02] LABS: Percent Saturation 11 % (20-50); Total Iron Binding Capacity 346 ug/dl (261-462)
--- NOTE | 2024-02-04 17:06 | EDRN ---
Cardiology in room w/pt at this time.
--- NOTE | 2024-02-04 17:17 | CON.CAR ---
Addendum entered and electronically signed by Delfino Henning MD 02/04/24 18:15:
78 yo male with PMH of CAD, multiple prior stents (last 2014, with stable cath 05/2023), recent left hip replacement is admitted with new A fib, and acute HF. He has noticed weight gain (over 20lbs) and edema since the hip surgery, along with CLARKE.
No chest pain. Exam with tachy, irregular rhythm, no murmurs, 2+ LE edema. Cr 0.8. EKG and tele shows A fib with RVR.
# Acute HF, unknown type
-IV lasix bid
-echo
# New A fib with RVR
-diltiazem drip for rate control
-CHADS2-VASC = 5. Anemia noted--perhaps due to recent surgery. Will start with heparin drip for AC. Eventual eliquis as long as Hgb stable.
-we discussed topic of KRISTEL/DCCV if remains in A fib after diuresis
Original Note:
Consultation
Consultation Request
Date/Time Consultation Requested: 02/04/24 1634
Date/Time Consultation Performed: 02/04/24 1700
Requesting Provider: Josie CASTILLO
Performing Provider: Mattie MARSH for Dr. Henning
Reason for Consultation: AFIB, CHF
Medical History
-
Chief Complaint: CLARKE, LE edema
History of Present Illness:
78 y/o male with hypertension, CAD with stenting (2013 LAD, prox D1, OM2, 2015- RCA stents), spinal stenosis s/p stimulator, and left hip replacement [facility] January 03. Dr. Coats is his nut sifter. He is here because for the
past 2 weeks or so, he has noted CLARKE as well as BLE edema. He noticed his weight was up as well (normally about 200 lbs and was 226 at home). He denies any CP or palps. He saw his PCP today for clearance because he wants to get carpel tunnel
surgery, and she recommended ER based on his exam. He also reported orthopnea, no PND. Denies any blood in urine or stool. He is seen to be in AFIB with RVR and is on diltiazem drip. Additionally, he seems to be volume overloaded and is s/p dose IV
lasix. He is feeling improved at the time of my assessment.
Past Medical History
Past Medical History: CAD, HTN and Other (as above)
Past Surgical History: Orthopedic
Social History
Tobacco: Former Smoker
Alcohol: Occasional (2-3 drinks den per week)
Allergies / Home Medications
Allergy/AdvReac Type Severity Reaction Status Date / Time
No Known Allergies Allergy Verified 02/04/24 14:26
�Medication �Instructions �Recorded �Confirmed �Type
rosuvastatin 40 mg tablet (Crestor) 40 mg PO HS High Cholesterol 09/02/21 02/04/24 History
nebivolol 2.5 mg tablet 2.5 mg PO DAILY 09/26/21 02/04/24 Rx
aspirin 81 mg tablet,delayed 81 mg PO BID Blood Clot 11/30/23 02/04/24 History
release Prevention/Tx
calcium polycarbophil 625 mg 1,250 mg PO BID Constipation 11/30/23 02/04/24 History
tablet (FiberCon)
docusate sodium 100 mg capsule 100 mg PO BIDPRN PRN constipation 11/30/23 02/04/24 History
(Colace)
losartan 50 mg-hydrochlorothiazide 1 tab PO DAILY Blood Pressure 11/30/23 02/04/24 History
12.5 mg tablet
meclizine 25 mg tablet 25 mg PO DAILYPRN PRN before mri 11/30/23 02/04/24 History
or/and test
acetaminophen 650 mg 1,300 mg PO [id number] PRN mild pain 02/04/24 02/04/24 History
tablet,extended release (Tylenol
Arthritis Pain)
alfuzosin 10 mg tablet,extended 10 mg PO QPM 02/04/24 02/04/24 History
release 24 hr
famotidine 20 mg tablet 20 mg PO TIDPRN PRN stomach issues 02/04/24 02/04/24 History
guaifenesin 600 mg tablet, 600 mg PO [id number] PRN conjestion 02/04/24 02/04/24 History
extended release 12 hr (Mucinex)
tadalafil 5 mg tablet 5 mg PO DAILY 02/04/24 02/04/24 History
venlafaxine 75 mg capsule,extended 225 mg PO DAILY 02/04/24 02/04/24 History
release 24 hr
Review of Systems
-
History Source: Patient
All other systems: Negative unless noted
Constitutional: Weight Gain
Respiratory: Trouble Breathing
Musculoskeletal: Edema
Physical Exam
Vital Signs
Temp Pulse Resp BP Pulse Ox
98.9 F 122 26 133/98 97
02/04/24 14:32 02/04/24 17:00 02/04/24 17:00 02/04/24 16:45 02/04/24 17:00
Lab Results
02/04/24 14:59
02/04/24 14:59
Nws-U-Hjufqncwqen Pept 6070 pg/ml 02/04/24 14:59
Physical Exam
General: Well Developed, Well Nourished and No Apparent Distress
HEENT: Normocephalic and Anicteric
Respiratory: Other (diminished to b/l bases)
Cardiac: Irregular Rhythm
Musculoskeletal: Edema (mild-moderate BLE edema R > L)
Skin: Warm and Dry
Neuro: AO x 3
Psych: Calm
Impression / Plan
-
AFIB with RVR:
-agree with IV diltiazem, which requires intensive monitoring
-can consider eventual KRISTEL/CV, but needs diuresis at present. Also has spinal stimulator, so will need to contact company if needs CV.
-[id number] score is 5 for age, HTN, CAD, CHF- start heparin drip- requires intensive monitoring. Anemia is noted, but denies any blood in urine or stool. Repeat hgb in AM.
Acute HFpEF:
-EF 47% on cath 05/2023, but EF around that same time on PET stress EF around 55%. Will update echo here.
-agree with IV lasix, which requires intensive monitoring
-CHF education.
-Thinks dry weight is about 200 lbs and is 231 right now!
-sodium/fluid limitation
CAD with hx stenting:
-stable without CP
HTN:
-monitor on dilt drip
Data Reviewed
-
EKG: Tracing Personally Visualized and interpreted (AFIB with RVR 128 BPM)
Radiology: Report Reviewed by me (CXR: Small bilateral pleural effusions)
Ultrasound: Report Reviewed by me (Normal. No evidence of deep venous thrombosis)
Medical Tests (Nuc Med, Echo etc): Report Reviewed by me (echo 2015- normal) and Other (cath 06/02/2023: Systemic hypertension 2: Severe inferobasal hypokinesis with EF 47% 3: Moderate branch vessel (ramus, D1) disease with widely patent LAD, OM 2,
and RCA stents)
Labs: Labs Reviewed by me
[2024-02-04 17:29] LABS: Ferritin 88.4 ng/ml (17.9-464.0)
--- NOTE | 2024-02-04 17:58 | EDRN ---
HR 133 at this time though BP is 86/50.
[2024-02-04 18:00] LABS: Folate > 20.0 ng/ml (2.76-20); Vitamin B12 358 pg/ml (239-931)
--- NOTE | 2024-02-04 18:13 | EDRN ---
Pt is at my max of cardizem 15 mg per hour and HR remains in 130's. SBP is 127. This RN notified Dr. Danielson via TT who said to contact control systems drafting officer. This RN found Mattie Damon NP for cardiology in chart though control systems drafting officer not mentioned. She was
unavailable when I attempted to TT her. This RN asked Carlo CASTILLO who is PA for hospitalist group who control systems drafting officer is and she said Dr. Henning so I TT'D Dr. Henning.
--- NOTE | 2024-02-04 18:17 | EDRN ---
Dr. Henning replied as pt is asymptomatic to maintain cardizem at this time at the 15 mg per hour via TT.
[2024-02-04] MEDS: HEPARIN 25000 UNITS/250 ML IV (20:55)
[2024-02-04] MEDS: CRESTOR 40 MG PO (22:10)
[2024-02-05] VITALS (11 sets, daily range): BP systolic 103–133; BP diastolic 71–94; PULSE 71–74; O2SAT 96–97; BMI 33.6
[2024-02-05] MEDS: CARDIZEM 125 IV (00:10)
[2024-02-05 03:35] LABS: Hematocrit 27.1 % (39.0-52.0); Hemoglobin 9.1 g/dL (13.0-18.0); Mean Corp Hgb Conc. 33.6 g/dL (33.0-37.0); Mean Corpuscular Hgb 27.2 pg (27.0-31.0); Mean Corpuscular Volume 80.9 fL (80.0-94.0); Mean Platelet Volume 8.9 fL (7.4-10.4); Platelet Count 380 10^3/uL (130-400); Red Blood Cell Count 3.35 10^6/uL (4.70-6.10); Red Cell Dist. Width 15.6 % (11.5-14.5); White Blood Cell Count 11.4 10^3/uL (4.8-10.8)
[2024-02-05 03:53] LABS: APTT 49.1 Sec (23.4-35.0)
[2024-02-05 04:00] LABS: Blood Urea Nitrogen 17 mg/dl (9-20); Calcium 8.6 mg/dl (8.4-10.2); Carbon Dioxide 22 mmol/L (22-30); Chloride 99 mmol/L (98-107); Estimated Creatinine Clearance 76 ml/min; Glucose 116 mg/dl (70-99); HDL Cholesterol 39 mg/dl; LDL Cholesterol, Calculated 34 mg/dl; Magnesium 2.1 mg/dl (1.6-2.3); Potassium 3.8 mmol/L (3.5-5.1); Sodium 137 mmol/L (135-145); Total Cholesterol 85 mg/dl (50-199); Triglyceride 60 mg/dl (10-149); Very Low Density Lipoprotein 12 mg/dl (0-30); eGFR > 60.00
--- NOTE | 2024-02-05 07:00 | W.PN.HOSP.TC ---
Today's Communication/Plan
-
f/w cardiology recommendations
c/w IV Heparin gtt
c/w Lasix
Assessment / Plan
Assessment / Plan
Physical Exam
General: Comfortable and Conversant
HEENT: Anicteric and Moist mucous membranes
Respiratory: Clear, Non Labored Respirations and Decreased Breath Sounds (Bilateral pleural effusions)
Cardiac: S1/S2, Irregular Rhythm and Tachycardia
GI: Soft and Non Tender
Musculoskeletal: No Clubbing, No Cyanosis and Other (+2 pitting edema bilateral lower ext)
Skin: Warm and Dry
Neuro: Awake, Alert, Oriented and Nonfocal/grossly intact
Psych: Calm
Atrial Fibrillation with Rapid Ventricular Response
No chest pain
Pro-BNP 6060 on admission
-Continue Diltiazem drip
-c/w IV Heparin gtt
- Appreciate cardiology input
#Acute Heart Failure, likely preserved EF triggered by rapid a-fib
-Check Echo
-Continue Lasix
-Monitor Is&Os and Daily Weights
#Normocytic Anemia with acute blood loss anemia secondary to recent hip surgery
-Interval drop from 13.5 to 9.2 over past 2 months - Likely related to blood loss following recent hip replacement
-Check iron studies
-Heme-test stools
# hyponatremia
Coronary Artery Disease s/p Stent (Most recent 2014)
-Continue aspirin
Essential Hypertension
-Continue losartan and nebivolol
-Hold HCTZ
Hyperlipidemia
-Continue Crestor
Depression
-Continue Effexor
BPH
-Continue alfuzosin and tadalafil
Chronic Back Pain s/p Spinal Stimulator
DVT proph: Lovenox, pending anticoagulation decision from cardiology
Code Status: Full Code
Total time spent to see the patient, examine the patient on the floor, review data and lab results, discuss treatment plan with patient, nursing staff around 55 minutes
Anticipated Discharge: > 48 hours
Subjective/Interval History
-
Date of Service: February 05, 2024
No chest pain
Objective Data
-
Labs:
Laboratory Results
02/05/24 02/05/24
03:18 11:05
WBC 11.4 H
Hgb 9.1 L
Hct 27.1 L
Plt Count 380
APTT 49.1 H Pending
Sodium 137
Potassium 3.8
Chloride 99
Carbon Dioxide 22
BUN 17
Creatinine 0.9
Glucose 116 H
Calcium 8.6
Vital Signs:
Vital Signs
Temp Pulse Resp BP Pulse Ox
97.8 F 112 20 113/87 95
02/05/24 03:09 02/05/24 03:45 02/05/24 03:09 02/05/24 03:09 02/05/24 03:09
I&O
02/04/24 02/05/24 02/06/24
06:59 06:59 06:59
Intake Total 240 / 240
Output Total 2049
Balance -1809 / -1809
--- NOTE | 2024-02-05 07:57 | PTCARENOTE ---
Dr. Truong came to discuss plan for today, [id number] will remain NPO for possible CV today.
--- NOTE | 2024-02-05 08:59 | W.PN.CD ---
Today's Communication / Plan
-
transition to Toprol XL
continue IV lasix
echo today
possible KRISTEL/DCCV Thursday
Impression / Plan
-
AFIB with RVR: new
-rates improved: transition to Toprol XL
-[id number] score is 5 for age, HTN, CAD, CHF-heparin for AC as we trend Hgb
-eventual eliquis
-will eval for KRISTEL/DCCV if we make good progress with diuresis over weekend
-TTE today
Acute HFpEF: severe requiring hospitalization and close monitoring of labs/tele
-EF 47% on cath 05/2023, but EF around that same time on PET stress EF around 55%.
-CHF education. -sodium/fluid limitation
-Thinks dry weight is about 91 kg (200lb)
-continue lasix 40mg IV bid
CAD with hx stenting:
-stable without CP
-stop ASA now that on AC
HTN:
-continue losartan 50mg daily
-change bystolic to Toprol XL for A fib control
Physical Exam
Vital Signs/Labs
Vital Signs
Temp Pulse Resp BP Pulse Ox
97.9 F 112 18 113/87 96
02/05/24 08:52 02/05/24 03:45 02/05/24 08:52 02/05/24 03:09 02/05/24 08:52
02/04/24 02/05/24 02/06/24
06:59 06:59 06:59
Actual Weight 100.2 kg
02/05/24 03:18
02/05/24 03:18
PT 15.3 Sec (11.4-14.6) H 02/04/24 14:59
INR 1.20 02/04/24 14:59
APTT 49.1 Sec (23.4-35.0) H 09/20/24 03:18
Magnesium 2.1 mg/dl (1.6-2.3) 02/05/24 03:18
Triglycerides 60 mg/dl (10-149) 02/05/24 03:18
LDL Cholesterol, Calc 34 mg/dl 02/05/24 03:18
VLDL Cholesterol, Calc 12 mg/dl (0-30) 02/05/24 03:18
HDL Cholesterol 39 mg/dl 02/05/24 03:18
TSH 1.67 uIU/ml (0.47-4.68) 02/04/24 14:59
02/04/24
14:59
Ecd-K-Sjpcewggfhe Pept 6070
Physical Exam
Constitutional: No acute distress
EENT: Moist mucous membranes
Cardiovascular: Systolic murmur absent, Rhythm/rate is irregular, Pedal edema present and JVD present
Respiratory: Respiratory effort normal and Lungs clear to auscul.
GI: Soft, Distention absent and Flat
Neuro/Psych: AO x 3
Data Reviewed
-
Date of Service: February 05, 2024
EKG: Other (Tele: A fib, avg HR ~100)
Labs: Labs Reviewed by me
[2024-02-05] MEDS: LASIX 40 MG IV ×2 (09:50→15:55)
[2024-02-05] MEDS: ASPIR LOW (ENTERIC COATED) 81 MG PO (09:51)
[2024-02-05] MEDS: COZAAR 50 MG PO (09:51)
[2024-02-05] MEDS: TOPROL XL 50 MG PO ×2 (09:51→20:20)
[2024-02-05] MEDS: EFFEXOR XR 225 MG PO (09:51)
[2024-02-05 12:16] LABS: APTT 55.5 Sec (23.4-35.0)
--- NOTE | 2024-02-05 15:00 | PTCARENOTE ---
Dr. Henning in room, patient converted to NSR, EKG obtained.
--- NOTE | 2024-02-05 15:03 | CM ---
Addendum entered by JAZMIN Georges 02/05/24 16:49:
[facility] able to accept.
Addendum entered by GUY GeorgesW 02/05/24 16:29:
Met again w/ patient at bedside.
Reviewed est. cost of Eliquis; patient aware/ agreeable.
Coupon placed in chart for free 30 d.
Discussed referral to [facility]. Pt. does not feel that he requires PT at this time since he has just used this for several weeks but is agreeable to RN. Referral made.
Plan is for home w/ [facility], if accepted.
Original Note:
CM following for DC planning needs.
Met w/ patient at bedside to complete initial assessment.
Pt. resides in a private, 2 story home w/ 1 [address]. Pt has a 1st flr. set up.
Pt. recently had a THR in December,. He had DCed to home w/ VN thru [facility]. [facility] had recently discontinued services at home x1 wk. ago.
Pt. ambulates with use a RW currently. He was trying to progress to a SPC but has been unable to do so due to recent LE Edema.
Anticipated DC plan will be for home w/ poss. VN needs.
Will follow.
--- NOTE | 2024-02-05 15:06 | CM ---
Priced Eliquis thru insurance, .
Cost of Eliquis is estimated to be $94 for 90 d supply and $47 for 30 d supply.
I will provide a free [address] in chart.
[2024-02-05] MEDS: HEPARIN 25000 UNITS/250 ML IV (15:56)
[2024-02-05] MEDS: NON-FORMULARY ITEM 10 MG PO (18:16)
[2024-02-05 19:05] LABS: APTT 58.2 Sec (23.4-35.0)
[2024-02-05] MEDS: CRESTOR 40 MG PO (20:20)
[2024-02-06] VITALS (8 sets, daily range): BP systolic 109–133; BP diastolic 69–88; PULSE 81; O2SAT 98; BMI 33.2
--- NOTE | 2024-02-06 00:30 | PTCARENOTE ---
Pt. remains in NSR mostly in the 70's this shift, other VSS. Heparin gtt infusing per order. Pt. OOB with assist x 1 & RW, voiding clear yellow urine without difficulty. Pt. sleeping.
[2024-02-06 02:24] LABS: Hematocrit 25.4 % (39.0-52.0); Hemoglobin 8.5 g/dL (13.0-18.0); Mean Corp Hgb Conc. 33.5 g/dL (33.0-37.0); Mean Corpuscular Hgb 27.4 pg (27.0-31.0); Mean Corpuscular Volume 81.9 fL (80.0-94.0); Platelet Count 357 10^3/uL (130-400); Red Cell Dist. Width 15.7 % (11.5-14.5); White Blood Cell Count 11.2 10^3/uL (4.8-10.8)
[2024-02-06 02:29] LABS: APTT 83.3 Sec (23.4-35.0)
[2024-02-06 02:35] LABS: Blood Urea Nitrogen 22 mg/dl (9-20); Calcium 8.3 mg/dl (8.4-10.2); Carbon Dioxide 24 mmol/L (22-30); Chloride 99 mmol/L (98-107); Estimated Creatinine Clearance 76 ml/min; Glucose 102 mg/dl (70-99); Potassium 3.5 mmol/L (3.5-5.1); Sodium 135 mmol/L (135-145); eGFR > 60.00
--- NOTE | 2024-02-06 06:48 | W.PN.HOSP.TC ---
Today's Communication/Plan
-
c/w rate control
systemic AC
c/w Lasix
Assessment / Plan
Assessment / Plan
Physical Exam
General: Comfortable and Conversant
HEENT: Anicteric and Moist mucous membranes
Respiratory: Clear, Non Labored Respirations and Decreased Breath Sounds (Bilateral pleural effusions)
Cardiac: S1/S2, Irregular Rhythm and Tachycardia
GI: Soft and Non Tender
Musculoskeletal: No Clubbing, No Cyanosis and Other (+2 pitting edema bilateral lower ext)
Skin: Warm and Dry
Neuro: Awake, Alert, Oriented and Nonfocal/grossly intact
Psych: Calm
Paroxysmal Atrial Fibrillation with Rapid Ventricular Response
Converted to SR
No chest pain
Pro-BNP 6060 on admission
-s/p Diltiazem drip
-c/w IV Heparin gtt,
Started on BB
- Appreciate cardiology input
#Acute Heart Failure, likely preserved EF triggered by rapid a-fib
-Echo showed LVEF 55-60%, LVH, Stage III diastolic dysfunction, Trace AI.
-Continue Lasix
-Monitor Is&Os and Daily Weights, he lost weight
#Normocytic Anemia with acute blood loss anemia secondary to recent hip surgery
-Interval drop from 13.5 to 9.2 over past 2 months - Likely related to blood loss following recent hip replacement
-Check iron studies, low iron level
-Heme-test stools
# hyponatremia
Coronary Artery Disease s/p Stent (Most recent 2014)
-Continue aspirin
Essential Hypertension
-Continue losartan and Toprol
-Hold HCTZ
Hyperlipidemia
-Continue Crestor
Depression
-Continue Effexor
BPH
-Continue alfuzosin
Chronic Back Pain s/p Spinal Stimulator
DVT proph: Lovenox, pending anticoagulation decision from cardiology
Code Status: Full Code
Total time spent to see the patient, examine the patient on the floor, review data and lab results, discuss treatment plan with patient, nursing staff around 55 minutes
Anticipated Discharge: 24 - 48 hours
Subjective/Interval History
-
Date of Service: February 06, 2024
He feels better
Less sob
No chest pain
Objective Data
-
Labs:
Laboratory Results
02/05/24 02/06/24 02/06/24
18:41 02:08 10:10
WBC 11.2 H
Hgb 8.5 L
Hct 25.4 L
Plt Count 357
APTT 58.2 H 83.3 H Pending
Sodium 135
Potassium 3.5
Chloride 99
Carbon Dioxide 24
BUN 22 H
Creatinine 0.9
Glucose 102 H
Calcium 8.3 L
Vital Signs:
Vital Signs
Temp Pulse Resp BP Pulse Ox
98.5 F 68 18 120/84 96
02/06/24 02:18 02/06/24 05:00 02/06/24 02:18 02/06/24 02:16 02/06/24 02:18
I&O
02/04/24 02/05/24 02/06/24
06:59 06:59 06:59
Intake Total 240 / 240 1128 / 1128
Output Total 2049 / 2149
Balance -1810 / -1810 -1022 / -1022
[2024-02-06] MEDS: ASPIR LOW (ENTERIC COATED) 81 MG PO (09:32)
[2024-02-06] MEDS: EFFEXOR XR 225 MG PO (09:33)
[2024-02-06] MEDS: COZAAR 50 MG PO (09:33)
[2024-02-06] MEDS: LASIX 40 MG IV (09:34)
[2024-02-06] MEDS: TOPROL XL 50 MG PO ×2 (09:34→19:52)
--- NOTE | 2024-02-06 10:17 | W.PN.CD ---
Today's Communication / Plan
-
heparin for AC as we trend Hgb
-eventual eliquis (pending stool hemoccult)
increase lasix to 80mg IV bid
compression stockings
Impression / Plan
-
AFIB with RVR: new
-echo (02/05/24): EF 55-60%, no sig valve disease
-converted back to sinus: transitioned to Toprol XL 50mg bid
-[id number] score is 5 for age, HTN, CAD, CHF-heparin for AC as we trend Hgb
-eventual eliquis (pending stool hemoccult)
Acute HFpEF: severe requiring hospitalization and close monitoring of labs/tele
-echo (02/05/24): EF 55-60%, no sig valve disease
-CHF education. -sodium/fluid limitation
-Thinks dry weight is about 91 kg (200lb)
-increase lasix to 80mg IV bid
CAD with hx stenting:
-stable without CP
-stop ASA now that on AC
HTN:
-continue losartan 50mg daily
-changed bystolic to Toprol XL for A fib control
Physical Exam
Vital Signs/Labs
Vital Signs
Temp Pulse Resp BP Pulse Ox
97.8 F 78 16 133/80 99
02/06/24 07:10 02/06/24 09:33 02/06/24 07:10 02/06/24 09:33 02/06/24 07:10
02/05/24 02/06/24 02/07/24
06:59 06:59 06:59
Actual Weight 100.2 kg 99.1 kg
02/06/24 02:08
02/06/24 02:08
PT 15.3 Sec (11.4-14.6) H 02/04/24 14:59
INR 1.20 02/04/24 14:59
APTT 83.3 Sec (23.4-35.0) H 02/06/24 02:08
Magnesium 2.1 mg/dl (1.6-2.3) 02/05/24 03:18
Triglycerides 60 mg/dl (10-149) 02/05/24 03:18
LDL Cholesterol, Calc 34 mg/dl 02/05/24 03:18
VLDL Cholesterol, Calc 12 mg/dl (0-30) 02/05/24 03:18
HDL Cholesterol 39 mg/dl 02/05/24 03:18
TSH 1.67 uIU/ml (0.47-4.68) 02/04/24 14:59
02/04/24
14:59
Vcx-C-Zetmmwuieun Pept 6070
Physical Exam
Constitutional: No acute distress and Comfortable
EENT: Moist mucous membranes
Cardiovascular: Rhythm & rate is regular, Systolic murmur absent, Pedal edema present and JVD present
Respiratory: Respiratory effort normal and Lungs clear to auscul.
GI: Soft and Distention absent
Neuro/Psych: AO x 3
Data Reviewed
-
Date of Service: February 06, 2024
EKG: Other (Tele: SR 70s, one V triplet)
Labs: Labs Reviewed by me
[2024-02-06] MEDS: ELIQUIS 5 MG PO ×2 (12:17→22:08)
--- NOTE | 2024-02-06 13:03 | PTCARENOTE ---
Assumed care of pt from night RN. Pt received awake and alert, Ox3. VSS, CM shows NSR with first degree AVB 70's, POX 98% on RA. Heparin drip D/C'd, pt started on Eliquis. Pt denies any pain or discomfort, ambulating in room with walker.
at bedside updated.
[2024-02-06] MEDS: LASIX 80 MG IV (15:46)
[2024-02-06] MEDS: NON-FORMULARY ITEM 10 MG PO (18:10)
[2024-02-06 21:56] LABS: Blood Urea Nitrogen 29 mg/dl (9-20); Calcium 8.7 mg/dl (8.4-10.2); Carbon Dioxide 29 mmol/L (22-30); Chloride 95 mmol/L (98-107); Estimated Creatinine Clearance 68 ml/min; Glucose 104 mg/dl (70-99); Potassium 3.7 mmol/L (3.5-5.1); Sodium 136 mmol/L (135-145); eGFR > 60.00
[2024-02-06] MEDS: MELATONIN 5 MG PO (22:08)
[2024-02-06] MEDS: CRESTOR 40 MG PO (22:08)
--- NOTE | 2024-02-07 03:08 | PTCARENOTE ---
Pt. OOB to chair and ambulating with RW frequently at beginning of shift, assist x 1. VSS, NSR with occasional PAC' s on the monitor. BMP drawn to check potassium level at beginning of shift due to increased Lasix dose, results 3.7, Hephziba 3D ANIMATOR
aware. Voiding clear yellow urine in urinal frequently. Currently sleeping.
[2024-02-07 04:03] VITALS: BP 126/80
[2024-02-07 04:37] LABS: % Basophils 0.5 % (0-2); % Eosinophils 2.8 % (0-6); % Immature Granulocytes 0.6 % (0-0.5); % Lymphocytes 19.7 % (20.5-51.1); % Monocytes 8.4 % (1.7-9.3); Absolute Basophils 0.1 10^3/uL (0-0.2); Absolute Eosinophils 0.3 10^3/uL (0-0.7); Absolute Immature Granulocytes 0.1 10^3/uL (0-0.05); Absolute Lymphocytes 2.1 10^3/uL (1.2-3.4); Absolute Monocytes 0.9 10^3/uL (0.1-0.6); Absolute Neutrophils 7.3 10^3/uL (1.4-6.5); Hematocrit 26.4 % (39.0-52.0); Hemoglobin 8.6 g/dL (13.0-18.0); Mean Corp Hgb Conc. 32.6 g/dL (33.0-37.0); Mean Corpuscular Hgb 26.8 pg (27.0-31.0); Mean Corpuscular Volume 82.2 fL (80.0-94.0); Mean Platelet Volume 9.3 fL (7.4-10.4); Nucleated Red Blood Cells % 0 % (-); Platelet Count 361 10^3/uL (130-400); Red Blood Cell Count 3.21 10^6/uL (4.70-6.10); Red Cell Dist. Width 15.5 % (11.5-14.5); White Blood Cell Count 10.8 10^3/uL (4.8-10.8)
[2024-02-07 04:41] LABS: Blood Urea Nitrogen 28 mg/dl (9-20); Calcium 8.4 mg/dl (8.4-10.2); Carbon Dioxide 29 mmol/L (22-30); Chloride 99 mmol/L (98-107); Estimated Creatinine Clearance 68 ml/min; Glucose 115 mg/dl (70-99); Potassium 3.3 mmol/L (3.5-5.1); Sodium 137 mmol/L (135-145); eGFR > 60.00
--- NOTE | 2024-02-07 06:10 | W.PN.UPDATE ---
Update Note
Progress Note Update
K 3.3, will replete with KCL 40MeQ IV x1
--- NOTE | 2024-02-07 06:43 | W.PN.HOSP.TC ---
Today's Communication/Plan
-
cough medicine with Claritin
Replace K
Lasix therapy
Assessment / Plan
Assessment / Plan
Physical Exam
General: Comfortable and Conversant
HEENT: Anicteric and Moist mucous membranes
Respiratory: Clear, Non Labored Respirations and Decreased Breath Sounds (Bilateral pleural effusions)
Cardiac: S1/S2, Irregular Rhythm and Tachycardia
GI: Soft and Non Tender
Musculoskeletal: No Clubbing, No Cyanosis and Other (+2 pitting edema bilateral lower ext)
Skin: Warm and Dry
Neuro: Awake, Alert, Oriented and Nonfocal/grossly intact
Psych: Calm
Paroxysmal Atrial Fibrillation with Rapid Ventricular Response
Converted to SR
No chest pain
Pro-BNP 6060 on admission
-s/p Diltiazem drip
-s/p IV Heparin gtt, now on Eliquis.
Started on BB
- Appreciate cardiology input
#Acute Heart Failure, likely preserved EF triggered by rapid a-fib
-Echo showed LVEF 55-60%, LVH, Stage III diastolic dysfunction, Trace AI.
-Continue Lasix, changed to high dose
-Monitor Is&Os and Daily Weights, he lost weight
# Cough, upper respiratory with white phlegm
will try Claritin and Tessalon
#Normocytic Anemia with acute blood loss anemia secondary to recent hip surgery
-Interval drop from 13.5 to 9.2 over past 2 months - Likely related to blood loss following recent hip replacement
-Check iron studies, low iron level
- Rectal exam - Hemoccult
- Started on iron pills.
-Heme-test stools
# hypokalemia
replace
# hyponatremia
Coronary Artery Disease s/p Stent (Most recent 2014)
-Continue aspirin
Essential Hypertension
-Continue losartan and Toprol
-Hold HCTZ
Hyperlipidemia
-Continue Crestor
Depression
-Continue Effexor
BPH
-Continue alfuzosin
Chronic Back Pain s/p Spinal Stimulator
DVT proph: Lovenox, pending anticoagulation decision from cardiology
Code Status: Full Code
Total time spent to see the patient, examine the patient on the floor, review data and lab results, discuss treatment plan with patient, nursing staff around 55 minutes
Anticipated Discharge: Within 24 hours
Subjective/Interval History
-
Date of Service: February 07, 2024
No chest pain
No sob
he feels secretions and upper respiratory cough
Objective Data
-
Labs:
Laboratory Results
02/06/24 02/07/24
21:27 04:08
WBC 10.8
Hgb 8.6 L
Hct 26.4 L
Plt Count 361
Sodium 136 137
Potassium 3.7 3.3 L
Chloride 95 L 99
Carbon Dioxide 29 29
BUN 29 H 28 H
Creatinine 1.0 1.0
Glucose 104 H 115 H
Calcium 8.7 8.4
Vital Signs:
Vital Signs
Temp Pulse Resp BP Pulse Ox
97.6 F 72 16 126/80 97
02/07/24 04:03 02/07/24 04:03 02/07/24 04:03 02/07/24 04:03 02/07/24 04:03
I&O
02/05/24 02/06/24 02/07/24
06:59 06:59 06:59
Intake Total 240 / 240 1128 / 1128 480 / 480
Output Total 2049 215 / 2149 2925 / 2925
Balance -1810 / -1810 -1022 / -1022 -2445 / -2445
[2024-02-07 07:49] VITALS: BP 146/74
[2024-02-07 07:53] VITALS: BMI 32.5
[2024-02-07] MEDS: KCL 270 MEQ IV (08:00)
[2024-02-07] MEDS: LASIX 80 MG IV ×2 (08:13→15:45)
[2024-02-07] MEDS: ASPIR LOW (ENTERIC COATED) 81 MG PO (08:14)
[2024-02-07] MEDS: ELIQUIS 5 MG PO ×2 (08:14→19:36)
[2024-02-07] MEDS: FEOSOL 325 MG PO (08:14)
[2024-02-07] MEDS: CLARITIN 10 MG PO (08:14)
[2024-02-07] MEDS: EFFEXOR XR 225 MG PO (08:15)
[2024-02-07] MEDS: COZAAR 50 MG PO (08:15)
[2024-02-07] MEDS: TOPROL XL 50 MG PO ×2 (08:15→19:36)
[2024-02-07] MEDS: TESSALON PERLES 100 MG PO ×2 (10:14→19:36)
--- NOTE | 2024-02-07 11:34 | PTCARENOTE ---
Assumed care of pt from night RN. Pt received awake and alert, Ox3. VSs, CM shows NSR with first degree block, POX 96% on RA. K-rider given as ordered for am K of 3.2. Pt ambulating in room without difficulty. Denies pain or discomfort at this
time.
--- NOTE | 2024-02-07 12:39 | PTCARENOTE ---
Tubi-education department chair applied to bilateral lower ext as ordered.
--- NOTE | 2024-02-07 12:40 | W.PN.CD ---
Today's Communication / Plan
-
continue IV lasix
add farxiga
Impression / Plan
-
AFIB with RVR: new
-echo (02/05/24): EF 55-60%, no sig valve disease
-converted back to sinus: transitioned to Toprol XL 50mg bid
-[id number] score is 5 for age, HTN, CAD, CHF-eliquis 5mg bid for OAC
Acute HFpEF: severe requiring hospitalization and close monitoring of labs/tele
-echo (02/05/24): EF 55-60%, no sig valve disease
-CHF education. -sodium/fluid limitation
-Thinks dry weight is about 91 kg (200lb)
-increased lasix to 80mg IV bid
-added farxiga (and case mgmt c/s for pricing)
CAD with hx stenting:
-stable without CP
-stop ASA now that on AC
HTN:
-continue losartan 50mg daily
-changed bystolic to Toprol XL for A fib control
Physical Exam
Vital Signs/Labs
Vital Signs
Temp Pulse Resp BP Pulse Ox
97.9 F 69 20 146/74 96
02/07/24 07:54 02/07/24 08:15 02/07/24 07:54 02/07/24 08:15 02/07/24 11:30
02/06/24 02/07/24 02/08/24
06:59 06:59 06:59
Actual Weight 99.1 kg 96.8 kg
02/07/24 04:08
02/07/24 04:08
PT 15.3 Sec (11.4-14.6) H 02/04/24 14:59
INR 1.20 02/04/24 14:59
APTT 178.0 Sec (23.4-35.0) H* 02/06/24 09:42
Magnesium 2.1 mg/dl (1.6-2.3) 02/05/24 03:18
Triglycerides 60 mg/dl (10-149) 02/05/24 03:18
LDL Cholesterol, Calc 34 mg/dl 02/05/24 03:18
VLDL Cholesterol, Calc 12 mg/dl (0-30) 02/05/24 03:18
HDL Cholesterol 39 mg/dl 02/05/24 03:18
TSH 1.67 uIU/ml (0.47-4.68) 02/04/24 14:59
02/04/24
14:59
Fdk-C-Cxtmhokjysa Pept 6070
Physical Exam
Constitutional: No acute distress and Comfortable
EENT: Moist mucous membranes
Cardiovascular: Rhythm & rate is regular, Systolic murmur absent, Pedal edema present and JVD present
Respiratory: Respiratory effort normal and Lungs clear to auscul.
Neuro/Psych: AO x 3
Data Reviewed
-
Date of Service: February 07, 2024
EKG: Other (Tele: SR 60s)
Labs: Labs Reviewed by me
[2024-02-07] MEDS: FARXIGA 10 MG PO (13:07)
[2024-02-07 13:08] VITALS: BP 110/84
[2024-02-07 17:20] VITALS: BP 123/84
[2024-02-07] MEDS: NON-FORMULARY ITEM 10 MG PO (17:37)
[2024-02-07 19:31] VITALS: BP 112/74
[2024-02-07 22:44] VITALS: BP 116/73
[2024-02-07] MEDS: CRESTOR 40 MG PO (22:47)
--- NOTE | 2024-02-08 02:15 | PTCARENOTE ---
Tele remains SR w/ occasional PACs. Patient denies any discomfort. Ambulates self in room w/ RW. Voiding clear yellow urine w/out difficulty. CHF education provided. POC ongoing. Call lam within reach.
[2024-02-08 03:18] VITALS: BP 126/73
[2024-02-08 03:52] LABS: % Basophils 0.4 % (0-2); % Eosinophils 3.3 % (0-6); % Immature Granulocytes 0.5 % (0-0.5); % Monocytes 8.1 % (1.7-9.3); % Neutrophils 66.7 % (42.2-75.2); Absolute Eosinophils 0.4 10^3/uL (0-0.7); Absolute Immature Granulocytes 0.1 10^3/uL (0-0.05); Absolute Lymphocytes 2.3 10^3/uL (1.2-3.4); Absolute Monocytes 0.9 10^3/uL (0.1-0.6); Absolute Neutrophils 7.2 10^3/uL (1.4-6.5); Hemoglobin 9.3 g/dL (13.0-18.0); Mean Corp Hgb Conc. 32.1 g/dL (33.0-37.0); Mean Corpuscular Hgb 26.5 pg (27.0-31.0); Mean Corpuscular Volume 82.6 fL (80.0-94.0); Nucleated Red Blood Cells % 0 % (-); Platelet Count 388 10^3/uL (130-400); Red Blood Cell Count 3.51 10^6/uL (4.70-6.10); Red Cell Dist. Width 15.5 % (11.5-14.5); White Blood Cell Count 10.8 10^3/uL (4.8-10.8)
[2024-02-08 04:19] LABS: Blood Urea Nitrogen 27 mg/dl (9-20); Calcium 8.8 mg/dl (8.4-10.2); Carbon Dioxide 27 mmol/L (22-30); Chloride 98 mmol/L (98-107); Estimated Creatinine Clearance 68 ml/min; Glucose 108 mg/dl (70-99); Potassium 3.6 mmol/L (3.5-5.1); Sodium 138 mmol/L (135-145); eGFR > 60.00
--- NOTE | 2024-02-08 07:27 | W.PN.CD ---
Today's Communication / Plan
-
Restart ASA 81qd
Added KCL 20 bid
Would continue diuresis as wt 213 with goal closer to 200
Impression / Plan
-
AFIB with RVR: new
-echo (02/05/24): EF 55-60%, no sig valve disease
-converted back to sinus: transitioned to Toprol XL 50mg bid
-[id number] score is 5 for age, HTN, CAD, CHF-eliquis 5mg bid for OAC
Acute HFpEF: severe requiring hospitalization and close monitoring of labs/tele
-echo (02/05/24): EF 55-60%, no sig valve disease
-CHF education. -sodium/fluid limitation
-Thinks dry weight is about 91 kg (200lb)
-continue lasix 80mg IV bid
-Added KCL 20mEq bid (K 3.3)
-added farxiga (and case mgmt c/s for pricing)
CAD with hx stenting:
-stable without CP
-He has 7 stents ([id number]). I favor continuing low dose ASA along with Eliquis started for PAF
HTN:
-BP now ideal
-continue losartan 50mg daily
-changed bystolic to Toprol XL for rate control
Physical Exam
Vital Signs/Labs
Vital Signs
Temp Pulse Resp BP Pulse Ox
97.9 F 70 20 126/73 97
02/08/24 03:17 02/08/24 06:00 02/08/24 03:17 02/08/24 03:18 02/08/24 03:17
02/07/24 02/08/24 02/09/24
06:59 06:59 06:59
Actual Weight 213 lb 6.519 oz
02/08/24 03:28
02/08/24 03:28
PT 15.3 Sec (11.4-14.6) H 02/04/24 14:59
INR 1.20 02/04/24 14:59
APTT 178.0 Sec (23.4-35.0) H* 02/06/24 09:42
Magnesium 2.1 mg/dl (1.6-2.3) 02/05/24 03:18
Triglycerides 60 mg/dl (10-149) 02/05/24 03:18
LDL Cholesterol, Calc 34 mg/dl 02/05/24 03:18
VLDL Cholesterol, Calc 12 mg/dl (0-30) 02/05/24 03:18
HDL Cholesterol 39 mg/dl 02/05/24 03:18
TSH 1.67 uIU/ml (0.47-4.68) 02/04/24 14:59
02/04/24
14:59
Ilq-A-Vjmqsupkrmf Pept 6070
Physical Exam
Constitutional: No acute distress
EENT: Anicteric
Cardiovascular: Rhythm & rate is regular, S1S2 is normal and Murmur/rub/gallop absent
Respiratory: Respiratory effort normal and Wheeze Present (mild wheezing mostly expiratory)
GI: Non tender
Neuro/Psych: Motor deficits absent
Data Reviewed
-
Date of Service: February 08, 2024
[2024-02-08 08:14] VITALS: BP 126/77
[2024-02-08 08:41] VITALS: BMI 31.4
[2024-02-08] MEDS: ASPIR LOW (ENTERIC COATED) 81 MG PO (08:43)
[2024-02-08] MEDS: COZAAR 50 MG PO (08:44)
[2024-02-08] MEDS: CLARITIN 10 MG PO (08:44)
[2024-02-08] MEDS: EFFEXOR XR 225 MG PO (08:44)
[2024-02-08] MEDS: FARXIGA 10 MG PO (08:45)
[2024-02-08] MEDS: ELIQUIS 5 MG PO ×2 (08:45→19:18)
[2024-02-08] MEDS: KCL 20 MEQ PO ×2 (08:46→19:18)
[2024-02-08] MEDS: TESSALON PERLES 100 MG PO ×2 (08:46→19:18)
[2024-02-08] MEDS: FEOSOL 325 MG PO (08:46)
[2024-02-08] MEDS: LASIX 80 MG IV ×2 (08:47→16:30)
[2024-02-08] MEDS: TOPROL XL 50 MG PO ×2 (08:47→19:18)
--- NOTE | 2024-02-08 10:13 | CM ---
Addendum entered by Deb Cain RN 02/08/24 10:48:
Patient has medicare, patient will qualify for the free 30 day coupon.
Original Note:
Pricing on Jardiance through the patient's PP, is $47 for a 30 day supply
Farxiga is $47 for a 30 day supply.
Patient has commerical insurance and qualifies for the copay card.
--- NOTE | 2024-02-08 10:59 | CM ---
Chart reviewed. Patient is independent of ADLS, lives with his in a 2 [address], 1st floor set up, 1 [address], ambulates with a RW and also has a SPC at home. Plan is for the patient to return home with Janina ROUSE CM to follow
[2024-02-08 12:31] VITALS: BP 117/76
--- NOTE | 2024-02-08 14:35 | W.PN.HOSP.TC ---
Today's Communication/Plan
-
Monitor vital signs
see plan
Continue with IV Lasix
Continue Eliquis
monitor renal function
Assessment / Plan
Assessment / Plan
Physical Exam
General: Comfortable and Conversant
HEENT: Anicteric and Moist mucous membranes
Respiratory: Clear, Non Labored Respirations and Decreased Breath Sounds (Bilateral pleural effusions)
Cardiac: S1/S2, regular Rhythm
GI: Soft and Non Tender
Musculoskeletal: No Clubbing, No Cyanosis and Other (+2 pitting edema bilateral lower ext)
Neuro: Awake, Alert, Oriented and Nonfocal/grossly intact
Psych: Calm
Paroxysmal Atrial Fibrillation with Rapid Ventricular Response
Converted to SR
CHADVASC 5
No chest pain
Pro-BNP 6060 on admission
-s/p Diltiazem drip
-s/p IV Heparin gtt, now on Eliquis.
Started on BB
- Appreciate cardiology input
#Acute Heart Failure,preserved EF triggered by rapid a-fib
-Echo showed LVEF 55-60%, LVH, Stage III diastolic dysfunction, Trace AI.
-Continue Lasix, changed to high dose
-Monitor Is&Os and Daily Weights, he lost weight
# Cough, upper respiratory with white phlegm
will try Claritin and Tessalon
#Normocytic Anemia with acute blood loss anemia secondary to recent hip surgery
-Interval drop from 13.5 to 9.2 over past 2 months - Likely related to blood loss following recent hip replacement
- Rectal exam - Hemoccult
- Started on iron pills.
# hypokalemia
monitor
# hyponatremia
Coronary Artery Disease s/p Stent (Most recent 2014)
-Continue aspirin
Essential Hypertension
-Continue losartan and Toprol
-Hold HCTZ
Hyperlipidemia
-Continue Crestor
Depression
-Continue Effexor
BPH
-Continue alfuzosin
Chronic Back Pain s/p Spinal Stimulator
DVT proph: eliquis
Code Status: Full Code
Total time spent to see the patient, examine the patient on the floor, review data and lab results, discuss treatment plan with patient, nursing staff around 52 minutes
Anticipated Discharge: 24 - 48 hours
Subjective/Interval History
-
Date of Service: February 08, 2024
denies pain
Objective Data
-
Labs:
Laboratory Results
02/08/24
03:28
WBC 10.8
Hgb 9.3 L
Hct 29.0 L
Plt Count 388
Sodium 138
Potassium 3.6
Chloride 98
Carbon Dioxide 27
BUN 27 H
Creatinine 1.0
Glucose 108 H
Calcium 8.8
Vital Signs:
Vital Signs
Temp Pulse Resp BP Pulse Ox
98.0 F 63 18 117/76 97
02/08/24 12:32 02/08/24 13:00 02/08/24 12:32 02/08/24 12:31 02/08/24 12:32
I&O
02/07/24 02/08/24 02/09/24
06:59 06:59 06:59
Intake Total 480 / 480 250 / 250
Output Total 2925 / 2925 3450 / 3450 1800 / 1800
Balance -2445 / -2445 -3200 / -3200 -1800 / -1800
[2024-02-08 16:40] VITALS: BP 121/68
[2024-02-08] MEDS: NON-FORMULARY ITEM 10 MG PO (18:20)
[2024-02-08 18:33] VITALS: BP 117/74
[2024-02-08] MEDS: CRESTOR 40 MG PO (22:24)
[2024-02-08 22:27] VITALS: BP 119/69
--- NOTE | 2024-02-09 00:55 | PTCARENOTE ---
Patient ambulating self in room w/ RW. Tele remains SR w/ PACs and occasional PVCs. Denies any pain or SOB. Voiding clear yellow urine. Can make needs known, call lam within reach.
[2024-02-09 03:10] VITALS: BP 118/78
[2024-02-09 03:34] VITALS: BMI 30.9
[2024-02-09 03:45] LABS: % Basophils 0.5 % (0-2); % Eosinophils 3.3 % (0-6); % Immature Granulocytes 0.4 % (0-0.5); % Lymphocytes 21.6 % (20.5-51.1); % Monocytes 8.6 % (1.7-9.3); % Neutrophils 65.6 % (42.2-75.2); Absolute Basophils 0.1 10^3/uL (0-0.2); Absolute Eosinophils 0.4 10^3/uL (0-0.7); Absolute Immature Granulocytes 0.1 10^3/uL (0-0.05); Absolute Lymphocytes 2.4 10^3/uL (1.2-3.4); Absolute Neutrophils 7.4 10^3/uL (1.4-6.5); Hematocrit 31.2 % (39.0-52.0); Hemoglobin 9.9 g/dL (13.0-18.0); Mean Corp Hgb Conc. 31.7 g/dL (33.0-37.0); Mean Corpuscular Volume 85.2 fL (80.0-94.0); Mean Platelet Volume 8.8 fL (7.4-10.4); Nucleated Red Blood Cells % 0 % (-); Platelet Count 397 10^3/uL (130-400); Red Blood Cell Count 3.66 10^6/uL (4.70-6.10); Red Cell Dist. Width 15.5 % (11.5-14.5); White Blood Cell Count 11.2 10^3/uL (4.8-10.8)
[2024-02-09 04:07] LABS: Blood Urea Nitrogen 27 mg/dl (9-20); Calcium 8.6 mg/dl (8.4-10.2); Carbon Dioxide 30 mmol/L (22-30); Chloride 97 mmol/L (98-107); Estimated Creatinine Clearance 60 ml/min; Glucose 92 mg/dl (70-99); Potassium 3.6 mmol/L (3.5-5.1); Sodium 140 mmol/L (135-145); eGFR > 60.00
[2024-02-09 08:09] VITALS: BP 114/76
[2024-02-09] MEDS: CLARITIN 10 MG PO (08:56)
[2024-02-09] MEDS: EFFEXOR XR 225 MG PO (08:56)
[2024-02-09] MEDS: TOPROL XL 50 MG PO ×2 (08:56→19:17)
[2024-02-09] MEDS: ELIQUIS 5 MG PO ×2 (08:57→19:17)
[2024-02-09] MEDS: ASPIR LOW (ENTERIC COATED) 81 MG PO (08:57)
[2024-02-09] MEDS: COZAAR 50 MG PO (08:58)
[2024-02-09] MEDS: TESSALON PERLES 100 MG PO ×2 (08:58→19:17)
[2024-02-09] MEDS: FEOSOL 325 MG PO (08:58)
[2024-02-09] MEDS: LASIX 80 MG IV ×2 (09:00→16:38)
[2024-02-09] MEDS: FARXIGA 10 MG PO (09:00)
[2024-02-09] MEDS: KCL 20 MEQ PO ×2 (09:05→19:17)
--- NOTE | 2024-02-09 09:59 | W.PN.CD ---
Today's Communication / Plan
-
Add Aldactone
Follow BMP closely
BMP at 1 and 3 weeks after discharge
Likely will not need KCl at discharge
Impression / Plan
-
Acute HFpEF
- Improving
- Still with lots of volume on board
- education, sodium/fluid limitation
- Dry weight is about 91 kg (200lb), may be lower dry weight
- continue Lasix 80mg IV bid
- Add Aldactone now => may not need KCl at discharge
- On Farxiga => Patient has commercial insurance and qualifies for the co-pay card
- BMP at 1 adn 3 weeks after discharge
AFib with RVR: new
- Paroxysmal, converted to sinus 02/05/2024
- Perhaps 20sec AFib yesterday
- On BB and Eliquis
- [id number] score is 5 for age2, HTN, CAD
- As outpatient can assess AFib burden and consider rhythm control
CAD with hx stenting:
-stable without CP
-He has 7 stents ([id number]). We favor continuing low dose ASA along with Eliquis started for PAF (unless he bleeds then stop the ASA)
HTN, improved
Subjective:
Eager for home soon, still has quite a bti of edema
Data: Echo (02/05/24): EF 55-60%, no sig valve disease
Physical Exam
Vital Signs/Labs
Vital Signs
Temp Pulse Resp BP Pulse Ox
97.9 F 67 18 118/78 96
02/09/24 08:14 02/09/24 03:10 02/09/24 08:14 02/09/24 03:10 02/09/24 08:14
02/08/24 02/09/24 02/10/24
06:59 06:59 06:59
Actual Weight 96.8 kg 92.1 kg
02/09/24 03:29
02/09/24 03:29
PT 15.3 Sec (11.4-14.6) H 02/04/24 14:59
INR 1.20 02/04/24 14:59
APTT 178.0 Sec (23.4-35.0) H* 02/06/24 09:42
Magnesium 2.1 mg/dl (1.6-2.3) 02/05/24 03:18
Triglycerides 60 mg/dl (10-149) 02/05/24 03:18
LDL Cholesterol, Calc 34 mg/dl 02/05/24 03:18
VLDL Cholesterol, Calc 12 mg/dl (0-30) 02/05/24 03:18
HDL Cholesterol 39 mg/dl 02/05/24 03:18
TSH 1.67 uIU/ml (0.47-4.68) 02/04/24 14:59
02/04/24
14:59
Xzm-Y-Lsnqfneulks Pept 6070
Physical Exam
Constitutional: No acute distress
EENT: Anicteric
Cardiovascular: Rhythm & rate is regular and Pedal edema present
Respiratory: Respiratory effort normal and Lungs clear to auscul.
GI: Soft and Distention absent
Neuro/Psych: AO x 3
Data Reviewed
-
Date of Service: February 09, 2024
[2024-02-09 11:21] VITALS: BP 106/68
[2024-02-09] MEDS: ALDACTONE 25 MG PO (12:07)
--- NOTE | 2024-02-09 13:08 | PTCARENOTE ---
Pt showered today, lissette well. He was frustrated earlier today when he was unsure if he was going home. Pt felt better after talking with Dr Reeder, now that he knows the plan.
--- NOTE | 2024-02-09 13:45 | W.PN.HOSP.TC ---
Today's Communication/Plan
-
Monitor vital signs
see plan
cw IV lasix
cw eliquis
hopeful dc soon
Assessment / Plan
Assessment / Plan
Physical Exam
General: Comfortable and Conversant
HEENT: Anicteric and Moist mucous membranes
Respiratory: Clear, Non Labored Respirations and Decreased Breath Sounds (Bilateral pleural effusions)
Cardiac: S1/S2, regular Rhythm
GI: Soft and Non Tender
Musculoskeletal: No Clubbing, No Cyanosis and Other (+2 pitting edema bilateral lower ext)
Neuro: Awake, Alert, Oriented and Nonfocal/grossly intact
Psych: Calm
Paroxysmal Atrial Fibrillation with Rapid Ventricular Response
Converted to SR
CHADVASC 5
No chest pain
Pro-BNP 6060 on admission
-s/p Diltiazem drip
-s/p IV Heparin gtt, now on Eliquis.
Started on BB
- Appreciate cardiology input
#Acute Heart Failure,preserved EF triggered by rapid a-fib
-Echo showed LVEF 55-60%, LVH, Stage III diastolic dysfunction, Trace AI.
-Continue Lasix, changed to high dose
-Monitor Is&Os and Daily Weights, he lost weight
aldactone added
# Cough, upper respiratory with white phlegm
will try Claritin and Tessalon
#Normocytic Anemia with acute blood loss anemia secondary to recent hip surgery
-Interval drop from 13.5 to 9.2 over past 2 months - Likely related to blood loss following recent hip replacement
- Rectal exam - Hemoccult
- Started on iron pills.
# hypokalemia
monitor
# hyponatremia
Coronary Artery Disease s/p Stent (Most recent 2014)
-Continue aspirin
Essential Hypertension
-Continue losartan and Toprol
-Hold HCTZ
Hyperlipidemia
-Continue Crestor
Depression
-Continue Effexor
BPH
-Continue alfuzosin
Chronic Back Pain s/p Spinal Stimulator
DVT proph: eliquis
Code Status: Full Code
Total time spent to see the patient, examine the patient on the floor, review data and lab results, discuss treatment plan with patient, nursing staff around 51 minutes
Anticipated Discharge: 24 - 48 hours
Subjective/Interval History
-
Date of Service: February 09, 2024
denies pain
Objective Data
-
Labs:
Laboratory Results
02/09/24
03:29
WBC 11.2 H
Hgb 9.9 L
Hct 31.2 L
Plt Count 397
Sodium 140
Potassium 3.6
Chloride 97 L
Carbon Dioxide 30
BUN 27 H
Creatinine 1.1
Glucose 92
Calcium 8.6
Vital Signs:
Vital Signs
Temp Pulse Resp BP Pulse Ox
98.0 F 67 18 118/78 97
02/09/24 11:19 02/09/24 03:10 02/09/24 11:19 02/09/24 03:10 02/09/24 11:19
I&O
02/08/24 02/09/24 02/10/24
06:59 06:59 06:59
Intake Total 250 / 250
Output Total 3450 / 3450 3725 / 3725
Balance -3200 / -3200 -3725 / -3725
--- NOTE | 2024-02-09 15:07 | PTCARENOTE ---
Pt ambulated in halls with his , lissette well.
[2024-02-09 15:29] VITALS: BP 113/74
[2024-02-09] MEDS: NON-FORMULARY ITEM 10 MG PO (18:02)
[2024-02-09 18:40] VITALS: BP 117/77
[2024-02-09 22:36] VITALS: BP 112/73
[2024-02-09] MEDS: CRESTOR 40 MG PO (22:41)
--- NOTE | 2024-02-10 00:45 | PTCARENOTE ---
Tele rhythm shows SR w/ prolonged QT. VSS. Denies any pain or discomfort. POC ongoing, call lam in reach.
[2024-02-10 04:21] VITALS: BP 133/82
[2024-02-10 05:08] LABS: % Basophils 0.4 % (0-2); % Eosinophils 3.4 % (0-6); % Immature Granulocytes 0.2 % (0-0.5); % Lymphocytes 23.8 % (20.5-51.1); % Monocytes 7.5 % (1.7-9.3); % Neutrophils 64.7 % (42.2-75.2); Absolute Basophils 0.1 10^3/uL (0-0.2); Absolute Eosinophils 0.4 10^3/uL (0-0.7); Absolute Lymphocytes 2.8 10^3/uL (1.2-3.4); Absolute Monocytes 0.9 10^3/uL (0.1-0.6); Absolute Neutrophils 7.7 10^3/uL (1.4-6.5); Hematocrit 31.4 % (39.0-52.0); Hemoglobin 10.1 g/dL (13.0-18.0); Mean Corp Hgb Conc. 32.2 g/dL (33.0-37.0); Mean Corpuscular Hgb 27.8 pg (27.0-31.0); Mean Corpuscular Volume 86.5 fL (80.0-94.0); Mean Platelet Volume 9.1 fL (7.4-10.4); Nucleated Red Blood Cells % 0 % (-); Platelet Count 418 10^3/uL (130-400); Red Blood Cell Count 3.63 10^6/uL (4.70-6.10); Red Cell Dist. Width 15.4 % (11.5-14.5); White Blood Cell Count 11.8 10^3/uL (4.8-10.8)
[2024-02-10 05:36] LABS: Blood Urea Nitrogen 25 mg/dl (9-20); Calcium 8.8 mg/dl (8.4-10.2); Carbon Dioxide 29 mmol/L (22-30); Chloride 98 mmol/L (98-107); Estimated Creatinine Clearance 60 ml/min; Glucose 93 mg/dl (70-99); Potassium 3.7 mmol/L (3.5-5.1); Sodium 140 mmol/L (135-145); eGFR > 60.00
[2024-02-10 08:24] VITALS: BP 116/84
[2024-02-10 08:30] VITALS: BMI 30.2
[2024-02-10] MEDS: CLARITIN 10 MG PO (08:46)
[2024-02-10] MEDS: ASPIR LOW (ENTERIC COATED) 81 MG PO (08:46)
[2024-02-10] MEDS: ALDACTONE 25 MG PO (08:46)
[2024-02-10] MEDS: EFFEXOR XR 225 MG PO (08:47)
[2024-02-10] MEDS: FARXIGA 10 MG PO (08:47)
[2024-02-10] MEDS: ELIQUIS 5 MG PO ×2 (08:47→19:21)
[2024-02-10] MEDS: COZAAR 50 MG PO (08:47)
[2024-02-10] MEDS: TOPROL XL 50 MG PO ×2 (08:48→19:21)
[2024-02-10] MEDS: TESSALON PERLES 100 MG PO ×2 (08:48→19:21)
[2024-02-10] MEDS: FEOSOL 325 MG PO (08:48)
[2024-02-10] MEDS: KCL 20 MEQ PO ×2 (08:48→19:21)
[2024-02-10] MEDS: LASIX 80 MG IV ×2 (08:48→16:49)
[2024-02-10] MEDS: FLUSH (NSS) 2 FLUSH IV (08:49)
--- NOTE | 2024-02-10 09:28 | W.PN.CD ---
Today's Communication / Plan
-
Continue diuresis
Monitor K+
At discharge likely no KCl and will need BMP at 2 and 4 weeks given new Aldactone and new SGLT2-i
Impression / Plan
-
Acute HFpEF
- Improving
- Still with lots of volume on board
- education, sodium/fluid limitation
- Dry weight, given the amount of edema he still has, is likely 90 kg
- continue Lasix 80mg IV bid
- Added Aldactone now => may not need KCl at discharge
- On Farxiga => Patient has commercial insurance and qualifies for the co-pay card
- BMP at 1 and 3 weeks after discharge
AFib with RVR: new
- Paroxysmal, converted to sinus 02/05/2024
- Perhaps 20sec AFib . No AFib in last 24 hrs
- On BB and Eliquis
- [id number] score is 5 for age2, HTN, CAD
- As outpatient can assess AFib burden and consider rhythm control
CAD with hx multiple stents (2012 and 2014):
- stable without CP
- He has 7 stents ([id number]). We favor continuing low dose ASA along with Eliquis started for PAF (unless he bleeds then stop the ASA)
HTN, improved
Subjective:
Eager for home soon, still has quite a bit of edema
Data:
Echo 02/05/24: EF 55-60%, no sig valve disease
Cath 06/02/2023: LVEDP 18 mmHg, multiple patent stents, 60% ramus, 50% in-stent D1
Physical Exam
Vital Signs/Labs
Vital Signs
Temp Pulse Resp BP Pulse Ox
97.9 F 78 20 116/84 95
02/10/24 04:21 02/10/24 08:24 02/10/24 04:21 02/10/24 08:24 02/10/24 04:21
02/09/24 02/10/24 02/11/24
06:59 06:59 06:59
Actual Weight 92.1 kg
02/10/24 04:27
02/10/24 04:27
PT 15.3 Sec (11.4-14.6) H 02/04/24 14:59
INR 1.20 02/04/24 14:59
APTT 178.0 Sec (23.4-35.0) H* 02/06/24 09:42
Magnesium 2.1 mg/dl (1.6-2.3) 02/05/24 03:18
Triglycerides 60 mg/dl (10-149) 02/05/24 03:18
LDL Cholesterol, Calc 34 mg/dl 02/05/24 03:18
VLDL Cholesterol, Calc 12 mg/dl (0-30) 02/05/24 03:18
HDL Cholesterol 39 mg/dl 02/05/24 03:18
TSH 1.67 uIU/ml (0.47-4.68) 02/04/24 14:59
02/04/24
14:59
Cup-U-Ojqsfwrbiok Pept 6070
Physical Exam
Constitutional: No acute distress
EENT: Anicteric
Cardiovascular: Rhythm & rate is regular and Pedal edema present (R foot has edema likely not from HF, edema 2+ to mid calf bilateral)
Respiratory: Respiratory effort normal and Lungs clear to auscul.
GI: Soft and Distention absent
Neuro/Psych: AO x 3
Data Reviewed
-
Date of Service: February 10, 2024
--- NOTE | 2024-02-10 10:15 | PTCARENOTE ---
Received patient this morning resting in bed, offers no complaints of pain or shortness of breath, remains in SR. Lower extremities remains with significant pitting edema, R>L. Sitting oob in the chair now, call lam within reach.
[2024-02-10 11:10] VITALS: BP 108/62
--- NOTE | 2024-02-10 13:13 | W.PN.HOSP.TC ---
Today's Communication/Plan
-
Monitor vital signs
see plan
Continue with IV diuresis as he is responding well
Monitor renal function
Continue Lasix
Continue Aldactone
On potassium
cw farxiga
Assessment / Plan
Assessment / Plan
Physical Exam
General: Comfortable and Conversant
HEENT: Anicteric and Moist mucous membranes
Respiratory: Clear, Non Labored Respirations and Decreased Breath Sounds (Bilateral pleural effusions)
Cardiac: S1/S2, regular Rhythm
GI: Soft and Non Tender
Musculoskeletal: No Clubbing, No Cyanosis and Other (+2 pitting edema bilateral lower ext)
Neuro: Awake, Alert, Oriented and Nonfocal/grossly intact
Psych: Calm
Paroxysmal Atrial Fibrillation with Rapid Ventricular Response
Converted to SR
CHADVASC 5
No chest pain
Pro-BNP 6060 on admission
-s/p Diltiazem drip
-s/p IV Heparin gtt, now on Eliquis.
Started on BB
- Appreciate cardiology input
#Acute Heart Failure,preserved EF triggered by rapid a-fib
-Echo showed LVEF 55-60%, LVH, Stage III diastolic dysfunction, Trace AI.
-Continue Lasix, changed to high dose
-Monitor Is&Os and Daily Weights, he lost weight
aldactone added
# Cough, upper respiratory with white phlegm
will try Claritin and Tessalon
#Normocytic Anemia with acute blood loss anemia secondary to recent hip surgery
-Interval drop from 13.5 to 9.2 over past 2 months - Likely related to blood loss following recent hip replacement
- Rectal exam - Hemoccult
- Started on iron pills.
# hypokalemia
monitor
# hyponatremia
Coronary Artery Disease s/p Stent (Most recent 2014)
-Continue aspirin
Essential Hypertension
-Continue losartan and Toprol
-Hold HCTZ
Hyperlipidemia
-Continue Crestor
Depression
-Continue Effexor
BPH
-Continue alfuzosin
Chronic Back Pain s/p Spinal Stimulator
DVT proph: eliquis
Code Status: Full Code
Total time spent to see the patient, examine the patient on the floor, review data and lab results, discuss treatment plan with patient, nursing staff around 52 minutes
Anticipated Discharge: 24 - 48 hours
Subjective/Interval History
-
Date of Service: February 10, 2024
denies pain
Objective Data
-
Labs:
Laboratory Results
02/10/24
04:27
WBC 11.8 H
Hgb 10.1 L
Hct 31.4 L
Plt Count 418 H
Sodium 140
Potassium 3.7
Chloride 98
Carbon Dioxide 29
BUN 25 H
Creatinine 1.1
Glucose 93
Calcium 8.8
Vital Signs:
Vital Signs
Temp Pulse Resp BP Pulse Ox
97.8 F 70 18 108/62 98
02/10/24 11:15 02/10/24 11:10 02/10/24 11:15 02/10/24 11:10 02/10/24 11:15
I&O
02/09/24 02/10/24 02/11/24
06:59 06:59 06:59
Intake Total 240 / 240
Output Total 3725 / 3725 1800 / 1800 900 / 900
Balance -3725 / -3725 -1800 / -1800 -660 / -660
--- NOTE | 2024-02-10 13:38 | CM ---
CM following for DC planning needs.
Met w/ patient at bedside. He reports that he is feeling better.
We reviewed DC plan for home w/ VN thru [facility].
I provided an update to [facility] VN today.
Will cont. to follow.
[2024-02-10 16:03] VITALS: BP 112/77
[2024-02-10] MEDS: NON-FORMULARY ITEM 10 MG PO (16:50)
[2024-02-10 19:10] VITALS: BP 114/78
[2024-02-10] MEDS: CRESTOR 40 MG PO (22:38)
[2024-02-10 22:40] VITALS: BP 122/79
[2024-02-11] VITALS (7 sets, daily range): BP systolic 102–128; BP diastolic 66–95; PULSE 70; BMI 29.8
--- NOTE | 2024-02-11 01:40 | PTCARENOTE ---
Pt received start of shift, HR SR. Reinforced education on heart failure, medication adherence, and afib. Updated pt on plan of care. Pt states understanding and that he really hopes he can go home tomorrow. Tubigrips removed HS. Pt continues to
deny any SOB. VSS.
[2024-02-11 05:33] LABS: Hematocrit 31.3 % (39.0-52.0); Hemoglobin 10.1 g/dL (13.0-18.0); Mean Corp Hgb Conc. 32.3 g/dL (33.0-37.0); Mean Corpuscular Hgb 26.5 pg (27.0-31.0); Mean Corpuscular Volume 82.2 fL (80.0-94.0); Platelet Count 413 10^3/uL (130-400); Red Blood Cell Count 3.81 10^6/uL (4.70-6.10); Red Cell Dist. Width 15.3 % (11.5-14.5); White Blood Cell Count 10.6 10^3/uL (4.8-10.8)
[2024-02-11 05:53] LABS: % Basophils 0.5 % (0-2); % Eosinophils 3.2 % (0-6); % Immature Granulocytes 0.4 % (0-0.5); % Lymphocytes 27.3 % (20.5-51.1); % Monocytes 8.1 % (1.7-9.3); % Neutrophils 60.5 % (42.2-75.2); Absolute Basophils 0.1 10^3/uL (0-0.2); Absolute Eosinophils 0.3 10^3/uL (0-0.7); Absolute Lymphocytes 2.9 10^3/uL (1.2-3.4); Absolute Monocytes 0.9 10^3/uL (0.1-0.6); Absolute Neutrophils 6.4 10^3/uL (1.4-6.5); Nucleated Red Blood Cells % 0 % (-)
[2024-02-11 06:00] LABS: Blood Urea Nitrogen 29 mg/dl (9-20); Calcium 8.9 mg/dl (8.4-10.2); Carbon Dioxide 29 mmol/L (22-30); Chloride 98 mmol/L (98-107); Estimated Creatinine Clearance 59 ml/min; Glucose 94 mg/dl (70-99); Potassium 3.8 mmol/L (3.5-5.1); Sodium 139 mmol/L (135-145); eGFR > 60.00
[2024-02-11] MEDS: CLARITIN 10 MG PO (08:17)
[2024-02-11] MEDS: TESSALON PERLES 100 MG PO ×2 (08:17→19:35)
[2024-02-11] MEDS: ASPIR LOW (ENTERIC COATED) 81 MG PO (08:17)
[2024-02-11] MEDS: EFFEXOR XR 225 MG PO (08:17)
[2024-02-11] MEDS: FARXIGA 10 MG PO (08:17)
[2024-02-11] MEDS: TOPROL XL 50 MG PO ×2 (08:18→19:35)
[2024-02-11] MEDS: COZAAR 50 MG PO (08:18)
[2024-02-11] MEDS: ALDACTONE 25 MG PO (08:18)
[2024-02-11] MEDS: FEOSOL 325 MG PO (08:18)
[2024-02-11] MEDS: KCL 20 MEQ PO ×2 (08:19→19:35)
[2024-02-11] MEDS: ELIQUIS 5 MG PO ×2 (08:19→19:35)
[2024-02-11] MEDS: LASIX 80 MG IV ×2 (09:04→16:14)
--- NOTE | 2024-02-11 09:52 | PTCARENOTE ---
Rec'd pt this shift awake and alert in bed. Pt denies pain, denies sob. Ambulating in room with rolling walker, tolerated well. NSR on monitor. AM labs given. Lasix given this am. Pt denies sob, lungs clear. See worklist for VS/I and O and
assessments.
--- NOTE | 2024-02-11 12:58 | W.PN.CD ---
Today's Communication / Plan
-
continue IV lasix
Impression / Plan
-
Acute HFpEF
- Improving
- education, sodium/fluid limitation
- Dry weight, given the amount of edema he still has, is likely under 90 kg
- continue Lasix 80mg IV bid
-monitor labs and tele
- Added Aldactone this admission => may not need KCl at discharge
- On Farxiga => Patient has commercial insurance and qualifies for the co-pay card
- BMP at 1 and 3 weeks after discharge
AFib with RVR: new
- Paroxysmal, converted to sinus 02/05/2024
- Perhaps 20sec AFib 02/08/2024. No AFib in last 24 hrs
- On BB and Eliquis
- [id number] score is 5 for age1, HTN, CAD
- As outpatient can assess AFib burden and consider PVI
CAD with hx multiple stents (2012 and 2014):
- stable without CP
- He has 7 stents (2080-1030). We favor continuing low dose ASA along with Eliquis started for PAF (unless he bleeds then stop the ASA)
HTN, improved
Subjective:
Edema better, but still present.
Data:
Echo 02/05/24: EF 55-60%, no sig valve disease
Cath 06/02/2023: LVEDP 18 mmHg, multiple patent stents, 60% ramus, 50% in-stent D1
Physical Exam
Vital Signs/Labs
Vital Signs
Temp Pulse Resp BP Pulse Ox
98.4 F 74 20 102/70 97
02/11/24 11:47 02/11/24 11:47 02/11/24 11:47 02/11/24 11:47 02/11/24 11:47
02/10/24 02/11/24 02/12/24
06:59 06:59 06:59
Actual Weight 89 kg
02/11/24 05:13
02/11/24 05:13
PT 15.3 Sec (11.4-14.6) H 02/04/24 14:59
INR 1.20 02/04/24 14:59
APTT 178.0 Sec (23.4-35.0) H* 02/06/24 09:42
Magnesium 2.1 mg/dl (1.6-2.3) 02/05/24 03:18
Triglycerides 60 mg/dl (10-149) 02/05/24 03:18
LDL Cholesterol, Calc 34 mg/dl 02/05/24 03:18
VLDL Cholesterol, Calc 12 mg/dl (0-30) 02/05/24 03:18
HDL Cholesterol 39 mg/dl 02/05/24 03:18
TSH 1.67 uIU/ml (0.47-4.68) 02/04/24 14:59
02/04/24
14:59
Mif-C-Utabscufruk Pept 6070
Physical Exam
Constitutional: No acute distress and Comfortable
EENT: Moist mucous membranes
Cardiovascular: Rhythm & rate is regular, Systolic murmur absent, Pedal edema present and JVD present
Respiratory: Respiratory effort normal and Lungs clear to auscul.
GI: Soft and Distention absent
Neuro/Psych: AO x 3
Data Reviewed
-
Date of Service: February 11, 2024
EKG: Other (Tele: NSR, no A fib)
Labs: Labs Reviewed by me
--- NOTE | 2024-02-11 13:13 | W.PN.HOSP.TC ---
Today's Communication/Plan
-
Monitor vital signs
see plan
Continue with IV diuresis, hopeful transition to p.o. diuretics tomorrow
Monitor hemoglobin
Monitor renal closely
Assessment / Plan
Assessment / Plan
Physical Exam
General: Comfortable and Conversant
HEENT: Anicteric and Moist mucous membranes
Respiratory: Clear, Non Labored Respirations and Decreased Breath Sounds (Bilateral pleural effusions)
Cardiac: S1/S2, regular Rhythm
GI: Soft and Non Tender
Musculoskeletal: No Clubbing, No Cyanosis and Other (+2 pitting edema bilateral lower ext)
Neuro: Awake, Alert, Oriented and Nonfocal/grossly intact
Psych: Calm
Paroxysmal Atrial Fibrillation with Rapid Ventricular Response
Converted to SR
CHADVASC 5
No chest pain
Pro-BNP 6060 on admission
-s/p Diltiazem drip
-s/p IV Heparin gtt, now on Eliquis.
Started on BB
- Appreciate cardiology input
#Acute Heart Failure,preserved EF triggered by rapid a-fib
-Echo showed LVEF 55-60%, LVH, Stage III diastolic dysfunction, Trace AI.
-Continue Lasix, changed to high dose
-Monitor Is&Os and Daily Weights, he lost weight
aldactone added
cw IV lasix
# Cough, upper respiratory with white phlegm
will try Claritin and Tessalon
#Normocytic Anemia with acute blood loss anemia secondary to recent hip surgery
-Interval drop from 13.5 to 9.2 over past 2 months - Likely related to blood loss following recent hip replacement
- Rectal exam - Hemoccult
- Started on iron pills.
# hypokalemia
monitor
# hyponatremia
Coronary Artery Disease s/p Stent (Most recent 2014)
-Continue aspirin
Essential Hypertension
-Continue losartan and Toprol
-Hold HCTZ
Hyperlipidemia
-Continue Crestor
Depression
-Continue Effexor
BPH
-Continue alfuzosin
Chronic Back Pain s/p Spinal Stimulator
DVT proph: eliquis
Code Status: Full Code
Total time spent to see the patient, examine the patient on the floor, review data and lab results, discuss treatment plan with patient, nursing staff around 51 minutes
Anticipated Discharge: Within 24 hours
Subjective/Interval History
-
Date of Service: February 11, 2024
denies pain
Objective Data
-
Labs:
Laboratory Results
02/11/24
05:13
WBC 10.6
Hgb 10.1 L
Hct 31.3 L
Plt Count 413 H
Sodium 139
Potassium 3.8
Chloride 98
Carbon Dioxide 29
BUN 29 H
Creatinine 1.1
Glucose 94
Calcium 8.9
Vital Signs:
Vital Signs
Temp Pulse Resp BP Pulse Ox
98.4 F 74 20 102/70 97
02/11/24 11:47 02/11/24 11:47 02/11/24 11:47 02/11/24 11:47 02/11/24 11:47
I&O
02/10/24 02/11/24 02/12/24
06:59 06:59 06:59
Intake Total 600 / 600 370 / 370
Output Total 1800 / 1800 1400 / 1400 1400 / 1400
Balance -1800 / -1800 -800 / -800 -1030 / -1030
--- NOTE | 2024-02-11 13:39 | CM ---
CM cont. to follow for DC planning needs.
Met w/ patient at bedside. He reports that he feels well.
DC remains for home w/ VN thru [facility].
Call to [facility] for home scale, delivered to room today.
Will cont. to follow.
[2024-02-11] MEDS: NON-FORMULARY ITEM 10 MG PO (18:16)
[2024-02-11] MEDS: CRESTOR 40 MG PO (22:55)
--- NOTE | 2024-02-12 01:39 | PTCARENOTE ---
Pt received start of shift, HR SR. Pt voiding well. Pt states they look forward to going home. Updated pt on plan of care, pt agreeable. VSS.
[2024-02-12 04:40] VITALS: BP 102/52
[2024-02-12 05:36] LABS: % Basophils 0.7 % (0-2); % Eosinophils 2.7 % (0-6); % Immature Granulocytes 0.3 % (0-0.5); % Lymphocytes 24.9 % (20.5-51.1); % Monocytes 7.8 % (1.7-9.3); % Neutrophils 63.6 % (42.2-75.2); Absolute Basophils 0.1 10^3/uL (0-0.2); Absolute Eosinophils 0.3 10^3/uL (0-0.7); Absolute Lymphocytes 2.9 10^3/uL (1.2-3.4); Absolute Monocytes 0.9 10^3/uL (0.1-0.6); Absolute Neutrophils 7.4 10^3/uL (1.4-6.5); Hemoglobin 10.5 g/dL (13.0-18.0); Mean Corp Hgb Conc. 32.8 g/dL (33.0-37.0); Mean Corpuscular Volume 85.3 fL (80.0-94.0); Mean Platelet Volume 9.3 fL (7.4-10.4); Nucleated Red Blood Cells % 0 % (-); Platelet Count 385 10^3/uL (130-400); Red Blood Cell Count 3.75 10^6/uL (4.70-6.10); Red Cell Dist. Width 15.3 % (11.5-14.5); White Blood Cell Count 11.6 10^3/uL (4.8-10.8)
[2024-02-12 05:48] LABS: Blood Urea Nitrogen 30 mg/dl (9-20); Carbon Dioxide 26 mmol/L (22-30); Chloride 99 mmol/L (98-107); Estimated Creatinine Clearance 54 ml/min; Glucose 98 mg/dl (70-99); Sodium 139 mmol/L (135-145); eGFR > 60.00
[2024-02-12 08:44] VITALS: BP 112/75
[2024-02-12 08:49] VITALS: BMI 29.5
[2024-02-12 08:51] VITALS: BMI 29.5
--- NOTE | 2024-02-12 09:09 | PTCARENOTE ---
Received patient this morning sitting at the side of the bed, in good spirits, offers no complaints. Cardiology in to see the patient.
[2024-02-12] MEDS: LASIX 80 MG IV (09:13)
[2024-02-12] MEDS: COZAAR 50 MG PO (09:14)
[2024-02-12] MEDS: EFFEXOR XR 225 MG PO (09:14)
[2024-02-12] MEDS: CLARITIN 10 MG PO (09:14)
[2024-02-12] MEDS: ALDACTONE 25 MG PO (09:14)
[2024-02-12] MEDS: ASPIR LOW (ENTERIC COATED) 81 MG PO (09:14)
[2024-02-12] MEDS: ELIQUIS 5 MG PO (09:15)
[2024-02-12] MEDS: FARXIGA 10 MG PO (09:15)
[2024-02-12] MEDS: FLUSH (NSS) 3 FLUSH IV (09:15)
[2024-02-12] MEDS: TESSALON PERLES 100 MG PO (09:15)
[2024-02-12] MEDS: TOPROL XL 50 MG PO (09:15)
[2024-02-12] MEDS: FEOSOL 325 MG PO (09:15)
[2024-02-12] MEDS: KCL 20 MEQ PO (09:15)
--- NOTE | 2024-02-12 09:22 | W.PN.CD ---
Today's Communication / Plan
-
discharge planning
cardiac meds: ASA 81mg daily, eliquis 5mg bid, Toprol XL 50mg bid, losartan 50mg daily, farxiga 10mg daily, aldactone 25mg daily, crestor 40mg daily
BMP at 1 weeks and 3 weeks
he follows with [facility] for cards, and will call them for an appt within 2 weeks
Impression / Plan
-
Acute HFpEF
- Improved s/p IV lasix
- education, sodium/fluid limitation
- now at 88kg, down from 100kg on admit
- transition to lasix 80mg PO daily
- Added Aldactone 25mg this admission => will stop Kcl on d/c
- On Farxiga 10mg => Patient has commercial insurance and qualifies for the co-pay card
- BMP at 1 and 3 weeks after discharge
AFib with RVR: new
- Paroxysmal, converted to sinus 02/05/2024
- Perhaps 20sec AFib 02/08/2024. No AFib in last 24 hrs
-brief NSVT with diuresis noted
- On Toprol XL 50mg bid and Eliquis 5mg bid
- [id number] score is 5 for age2, HTN, CAD
- As outpatient can assess AFib burden and consider PVI
-to also discuss outpatient stress testing as well
CAD with hx multiple stents (2012 and 2014):
- stable without CP
- He has 7 stents ([id number]). We favor continuing low dose ASA along with Eliquis started for PAF (unless he bleeds then stop the ASA)
HTN, improved. cont losartan 50mg dailt
Subjective:
SOB and edema are better
Data:
Echo 02/05/24: EF 55-60%, no sig valve disease
Cath 06/02/2023: LVEDP 18 mmHg, multiple patent stents, 60% ramus, 50% in-stent D1
Physical Exam
Vital Signs/Labs
Vital Signs
Temp Pulse Resp BP Pulse Ox
97.5 F 76 16 112/75 97
02/12/24 08:44 02/12/24 08:44 02/12/24 08:44 02/12/24 08:44 02/12/24 08:44
02/11/24 02/12/24 02/13/24
06:59 06:59 06:59
Actual Weight 89 kg 88.1 kg
02/12/24 04:46
02/12/24 04:46
PT 15.3 Sec (11.4-14.6) H 02/04/24 14:59
INR 1.20 02/04/24 14:59
APTT 178.0 Sec (23.4-35.0) H* 02/06/24 09:42
Magnesium 2.1 mg/dl (1.6-2.3) 02/05/24 03:18
Triglycerides 60 mg/dl (10-149) 02/05/24 03:18
LDL Cholesterol, Calc 34 mg/dl 02/05/24 03:18
VLDL Cholesterol, Calc 12 mg/dl (0-30) 02/05/24 03:18
HDL Cholesterol 39 mg/dl 02/05/24 03:18
TSH 1.67 uIU/ml (0.47-4.68) 02/04/24 14:59
02/04/24
14:59
Fki-F-Ddhhqusoapf Pept 6070
Physical Exam
Constitutional: No acute distress and Comfortable
EENT: Moist mucous membranes
Cardiovascular: Rhythm & rate is regular, JVD pressure is normal, Systolic murmur absent and Pedal edema present
Respiratory: Respiratory effort normal and Lungs clear to auscul.
Neuro/Psych: AO x 3
Data Reviewed
-
Date of Service: February 12, 2024
EKG: Other (Tele: NSR 60s, brief NSVT)
Labs: Labs Reviewed by me
--- NOTE | 2024-02-12 11:44 | W.PN.HOSP.TC ---
Today's Communication/Plan
-
Monitor vital signs see plan
Transition to oral Lasix
Discharge today
BMP prescription provided to the patient
Time of discharge 37 minutes
Assessment / Plan
Assessment / Plan
Physical Exam
General: Comfortable and Conversant
HEENT: Anicteric and Moist mucous membranes
Respiratory: Clear, Non Labored Respirations and Decreased Breath Sounds (Bilateral pleural effusions)
Cardiac: S1/S2, regular Rhythm
GI: Soft and Non Tender
Musculoskeletal: No Clubbing, No Cyanosis and Other (+2 pitting edema bilateral lower ext)
Neuro: Awake, Alert, Oriented and Nonfocal/grossly intact
Psych: Calm
Paroxysmal Atrial Fibrillation with Rapid Ventricular Response
Converted to SR
CHADVASC 5
No chest pain
Pro-BNP 6060 on admission
-s/p Diltiazem drip
-s/p IV Heparin gtt, now on Eliquis.
Started on BB
- Appreciate cardiology input
#Acute Heart Failure,preserved EF triggered by rapid a-fib
-Echo showed LVEF 55-60%, LVH, Stage III diastolic dysfunction, Trace AI.
-Continue Lasix, changed to high dose
-Monitor Is&Os and Daily Weights, he lost weight
aldactone added
transition to PO lasix on dc; BMP script provided to patient
no K on dc per cards as on aldactone
# Cough, upper respiratory with white phlegm
will try Claritin and Tessalon
#Normocytic Anemia with acute blood loss anemia secondary to recent hip surgery
-Interval drop from 13.5 to 9.2 over past 2 months - Likely related to blood loss following recent hip replacement
- Rectal exam - Hemoccult
- Started on iron pills.
# hypokalemia
monitor
# hyponatremia
Coronary Artery Disease s/p Stent (Most recent 2014)
-Continue aspirin
Essential Hypertension
-Continue losartan and Toprol
-Hold HCTZ
Hyperlipidemia
-Continue Crestor
Depression
-Continue Effexor
BPH
-Continue alfuzosin
Chronic Back Pain s/p Spinal Stimulator
DVT proph: eliquis
Code Status: Full Code
Anticipated Discharge: Today
Subjective/Interval History
-
Date of Service: February 12, 2024
denies pain
Objective Data
-
Labs:
Laboratory Results
02/12/24
04:46
WBC 11.6 H
Hgb 10.5 L
Hct 32.0 L
Plt Count 385
Sodium 139
Potassium 4.0
Chloride 99
Carbon Dioxide 26
BUN 30 H
Creatinine 1.2
Glucose 98
Calcium 9.0
Vital Signs:
Vital Signs
Temp Pulse Resp BP Pulse Ox
97.5 F 76 16 112/75 97
02/12/24 08:44 02/12/24 08:44 02/12/24 08:44 02/12/24 08:44 02/12/24 08:44
I&O
02/11/24 02/12/24 02/13/24
06:59 06:59 06:59
Intake Total 600 / 600 370 / 370 480 / 480
Output Total 1400 / 1400 2600 / 2600 850 / 850
Balance -800 / -800 -2230 / -2230 -370 / -370
[2024-02-12 11:47] VITALS: BP 93/68
--- NOTE | 2024-02-12 11:53 | W.DCSUMMARY ---
Discharge Summary
Discharge Data
Date of Admission: 02/04/24
Date of Discharge: 02/12/24
-
Pending Results: No
Hospital Course
78-year-old male with past medical history of CAD status post stent, essential hypertension, hyperlipidemia, depression, BPH, chronic back pain status post spinal stimulator came to the hospital with atrial fibrillation with rapid ventricular rate
and congestive heart failure. Patient was seen by cardiology throughout hospitalization. Patient required IV Lasix which improved his symptoms and then he was able to be transition to oral Lasix. For his atrial fibrillation initially he was on
Cardizem drip which was later transitioned to metoprolol. Echocardiogram was done which showed EF of 55 to 60% with stage III diastolic dysfunction. Once his symptoms continue to improve, he was then discharged home with instructions to follow-up
with all his physicians outpatient.
Discharge Plan
-
Patient Disposition: Home with Home Care
Discharge Diagnosis/Procedures: Paroxysmal Atrial Fibrillation with Rapid Ventricular Response
Acute congestive heart failure with preserved ejection fraction
Normocytic anemia
Diet: As tolerated
Activity: As tolerated
Driving Restrictions: As prior to admission
Bathing Restrictions: None
Blood Work: BMP in 1 and 3-week with cardiology
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
Referrals:
[facility] [Outside] (FAX- )
Tanja Barker MD [Family Provider] - in less than 1 week
Alli Coats MD [Non-Admitting Privileges] - in one week
Prescriptions:
New
ferrous sulfate [FeroSul] 325 mg (65 mg iron) Tablet
325 mg PO DAILY Qty: 30 0RF
Eliquis 5 mg Tablet
5 mg PO BID Qty: 60 0RF
losartan 50 mg Tablet
50 mg PO DAILY Qty: 30 0RF
metoprolol succinate 50 mg Tablet Extended Release 24 Hr
50 mg PO BID Qty: 60 0RF
spironolactone 25 mg Tablet
25 mg PO DAILY Qty: 30 0RF
furosemide 80 mg Tablet
80 mg PO DAILY Qty: 30 0RF
benzonatate 100 mg Capsule
100 mg PO BID Qty: 10 0RF
dapagliflozin propanediol 10 mg Tablet
10 mg PO DAILY Qty: 30 0RF
Continued
rosuvastatin [Crestor] 40 MG tablet
40 mg PO HS
meclizine 25 mg Tablet
25 mg PO DAILYPRN PRN (Reason: before mri or/and test)
calcium polycarbophil [FiberCon] 625 mg Tablet
1,250 mg PO BID
docusate sodium [Colace] 100 mg Capsule
100 mg PO BIDPRN PRN (Reason: constipation)
venlafaxine 75 mg Capsule,Extended Release 24hr
225 mg PO DAILY
acetaminophen [Tylenol Arthritis Pain] 650 mg Tablet Extended Release
1,300 mg PO [id number] PRN (Reason: mild pain)
alfuzosin 10 mg Tablet Extended Release 24 Hr
10 mg PO QPM
tadalafil 5 mg Tablet
5 mg PO DAILY
guaifenesin [Mucinex] 600 mg Tablet Extended Release 12hr
600 mg PO [id number] PRN (Reason: conjestion)
famotidine 20 MG tablet
20 mg PO TIDPRN PRN (Reason: stomach issues)
Changed
aspirin 81 MG tablet,delayed release (DR/EC)
81 mg PO DAILY Qty: 0 0RF
Discontinued
nebivolol 2.5 MG tablet
2.5 mg PO DAILY 0RF
losartan-hydrochlorothiazide 50-12.5 mg Tablet
1 tab PO DAILY
Discharge Orders:
Discharge Patient (As Directed); Ordered 02/12/24
Ordered By: Angel Reeder
Care Plan Goals
Care Plan Goals:
Problem: Readiness for enhanced knowledge related to diagnosis and treatment plan
Goal: Understand your diagnosis and treatment plan needs, including medications if applicable.
Instructions: Know your diagnosis, underlying causes and treatment plan options, including medications if applicable. Consult with your health care team to learn about your diagnosis and treatment plan, including medications if applicable.
Discharge Date and Time
Discharge Date/Time: 02/12/24 14:35
Print Language: YORUBA
--- NOTE | 2024-02-12 11:57 | CM ---
CM following for DC planning needs.
Met w/ patient at bedside. Pt. feels well and is hopeful for DC today.
We reviewed DC plan for home w/ VN thru [facility]. I have updated [place] on DC date.
Plan: HOME w/ [facility]
[2024-02-12] MEDS: FLUAD (65 yr+) 2024-2025 FORMULA 0.5 ML IM (12:45)
--- NOTE | 2024-02-12 13:03 | PTCARENOTE ---
Patient for discharge, reviewed instructions and new prescriptions with the patient and his and they state their understanding. Patient aware of follow up appointments and lab work needed, given the flu shot as requested and discharged home
with his .
== END 2024-02-12 14:35 | disposition home health service (06) | DRG 291 ==
LOC: IVU 16:49
PROVIDERS: Internal Medicine; Nurse Practitioner Gerontology; Physician Assistant Medical; ADMITTING PHYSICIAN Student in an Organized Health Care Education/Training Program; ATTENDING PHYSICIAN Internal Medicine; CONSULT PHYSICIAN Internal Medicine; EMERGENCY PHYSICIAN Emergency Medicine; FAMILY PHYSICIAN Family Medicine
PROC: 3E02340 Introduction of Influenza Vaccine into Muscle, Percutaneous Approach (ICD-10-PCS; 2024-02-12)
DX: I11.0 Hypertensive heart disease with heart failure (principal); I50.31 Acute diastolic (congestive) heart failure; E87.1 Hypo-osmolality and hyponatremia; D62 Acute posthemorrhagic anemia; E78.00 Pure hypercholesterolemia, unspecified; I25.10 Atherosclerotic heart disease of native coronary artery without angina pectoris; G89.29 Other chronic pain; K21.9 Gastro-esophageal reflux disease without esophagitis; M54.9 Dorsalgia, unspecified; R00.0 Tachycardia, unspecified; I48.0 Paroxysmal atrial fibrillation; F32.A Depression, unspecified; N40.0 Benign prostatic hyperplasia without lower urinary tract symptoms; R05.9 Cough, unspecified; E87.6 Hypokalemia; M79.89 Other specified soft tissue disorders; Z96.642 Presence of left artificial hip joint; Z96.652 Presence of left artificial knee joint; Z95.5 Presence of coronary angioplasty implant and graft; Z87.891 Personal history of nicotine dependence; Z90.49 Acquired absence of other specified parts of digestive tract; Z79.82 Long term (current) use of aspirin; Z96.82 Presence of neurostimulator; Z23 Encounter for immunization
CPT/HCPCS: 71046; 80048; 80061; 82607; 82728; 82746; 83540; 83550; 83735; 83880; 84443; 85025; 85027; 85610; 85730; 90662; 93005; 93306; 93970; 96374; 96375; 97116; 97163; 97167; 97530; 97535; 99291; G0008

== ENCOUNTER → 2024-05-10 11:29 | Outpatient (REF) | payer OTHER, SELFPAY | LOC: RAD 11:29 | PROVIDERS: ATTENDING PHYSICIAN Physician Assistant Medical; FAMILY PHYSICIAN Family Medicine; REFERRING PHYSICIAN Internal Medicine Clinical Cardiac Electrophysiology | DX: I48.0 Paroxysmal atrial fibrillation (principal); Z01.810 Encounter for preprocedural cardiovascular examination; I25.10 Atherosclerotic heart disease of native coronary artery without angina pectoris; R07.9 Chest pain, unspecified; I10 Essential (primary) hypertension; R94.31 Abnormal electrocardiogram [ECG] [EKG] | CPT/HCPCS: 71046 ==

== ENCOUNTER 2024-05-19 21:56 | Inpatient (IN) | payer OTHER, SELFPAY ==
[2024-05-19] VITALS (7 sets, daily range): BP systolic 107–133; BP diastolic 63–96; BMI 28.4
[2024-05-19 15:03] LABS: % Basophils 0.5 % (0-2); % Eosinophils 2.2 % (0-6); % Immature Granulocytes 0.4 % (0-0.5); % Lymphocytes 14.8 % (20.5-51.1); % Monocytes 7.3 % (1.7-9.3); % Neutrophils 74.8 % (42.2-75.2); Absolute Basophils 0.1 10^3/uL (0-0.2); Absolute Eosinophils 0.3 10^3/uL (0-0.7); Absolute Immature Granulocytes 0.1 10^3/uL (0-0.05); Absolute Lymphocytes 1.8 10^3/uL (1.2-3.4); Absolute Monocytes 0.9 10^3/uL (0.1-0.6); Absolute Neutrophils 8.9 10^3/uL (1.4-6.5); Hematocrit 35.5 % (39.0-52.0); Mean Corpuscular Hgb 26.6 pg (27.0-31.0); Mean Corpuscular Volume 85.7 fL (80.0-94.0); Mean Platelet Volume 9.5 fL (7.4-10.4); Nucleated Red Blood Cells % 0 % (-); Platelet Count 313 10^3/uL (130-400); Red Blood Cell Count 4.14 10^6/uL (4.70-6.10); Red Cell Dist. Width 17.2 % (11.5-14.5); White Blood Cell Count 11.9 10^3/uL (4.8-10.8)
[2024-05-19 15:17] LABS: ALT (SGPT) 41 U/L (0-50); AST (SGOT) 40 U/L (17-59); Albumin 3.7 g/dl (3.5-5.0); Alkaline Phosphatase 126 U/L (38-126); Blood Urea Nitrogen 20 mg/dl (9-20); Calcium 8.7 mg/dl (8.4-10.2); Carbon Dioxide 30 mmol/L (22-30); Chloride 103 mmol/L (98-107); Glucose 102 mg/dl (70-99); Potassium 3.9 mmol/L (3.5-5.1); Sodium 142 mmol/L (135-145); Total Bilirubin 0.4 mg/dl (0.2-1.3); Total Protein 6.4 g/dl (6.3-8.2); eGFR > 60.00
[2024-05-19 17:58] LABS: NT-proBNP 4520 pg/ml
--- NOTE | 2024-05-19 19:10 | ED.GENMED ---
History of Present Illness
<MAXIMO Becerra - Last Filed: 05/20/24 02:58>
General
Chief Complaint: Heart Rate Problem
Source: patient and spouse
Exam Limitations: none
Time Seen by Provider: 05/19/24 18:45
History of Present Illness
History of Present Illness:
This is a 78 year old male that comes in with c/o SOB. States that he is due to have a Cardioversion on May 24. States that 2 days before Alexandro he had Labs down and his White blood cell count was elevated. States that the certified ophthalmic medical technician was
concerned that he had PNA and told him to see the Family doctor. States that he has had a cough on and off and has been SOB. States that he also has a headache on and off. Denies any fever, chills, chest pain, abd pain, nausea, vomiting, diarrhea,
dizziness, urinary burning.
Past History
<MAXIMO Becerra - Last Filed: 05/20/24 02:58>
Past History
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
ED Past Surgical History: Appendectomy, Cardiac (Stent), Cholecystectomy, Orthopedic (Laminectomy/spinal fusion L5/S1, Left knee replacement, Left hip replacement, ) and Urological (Penile Implant)
Social History
Tobacco: Former smoker
Alcohol: Occasional
Drug: None
Personal:
Living: with family
Review of Systems
<MAXIMO Becerra - Last Filed: 05/20/24 02:58>
Review of Systems
All Other Systems: ROS reviewed and negative except as documented in HPI and ROS
Constitutional: Reports no symptoms; Denies fever or chills
EENT: Reports no symptoms
Respiratory: Reports cough (occasional ) and trouble breathing
Cardiac: Reports no symptoms; Denies chest pain
ABD/GI: Reports no symptoms; Denies abdominal pain, nausea, vomiting or diarrhea
: Reports no symptoms; Denies dysuria, frequency or urgency
Musculoskeletal: Reports no symptoms
Skin: Reports no symptoms
Neurological: Reports no symptoms; Denies dizzy or headache
Psychiatric: Reports no symptoms
Phy Exam
<MAXIMO Becerra - Last Filed: 05/20/24 02:58>
General Physical Exam
General Presentation: no apparent distress
General age: appears stated age
General Skin: warm and dry
General Habitus: elderly
General Mental: alert
General Hydration: appears well hydrated
ENT Exam
ENT Exam: TM's normal, pharynx normal and neck supple
Eye Exam
Eye Exam: EOMI
Cardiovascular Exam
Cardiovascular Exam: normal peripheral pulses and irregularly irregular
Pulmonary Exam
Pulmonary Exam: no respiratory distress, no rales, chest non tender, no crackles, no rhonchi, no cough and other (Fail exp wheezing left and decreased breath sounds Right base)
Gastrointestinal Exam
Gastrointestinal Exam: normal bowel sounds, non tender, soft, no organomegaly, no pulsatile mass and non distended
Musculoskeletal Exam
Musculoskeletal Exam: full ROM and edema (Nonpitting lower leg slight Edema)
Skin Exam
Skin Exam: normal color, warm/dry, no petechia and redness (On the left lower leg with scratch cope noted, Slight increased warmth)
Course
<MAXIMO Becerra - Last Filed: 05/20/24 02:58>
Orders/Labs/Results
Orders:
Orders
05/19/24 Breakfast
Cholesterol Lowering
At Your Request: Full Participation
Cholesterol Lowering: Sodium, 2 Gram
05/19/24 14:13
EKG [Electrocardiogram (*1)] Urgent
Reason for Study: Atrial Fibrillation
EKG- Treatment ONCE
05/19/24 14:39
Complete Blood Count/With Diff Urgent
Comprehensive Metabolic Panel Urgent
05/19/24 17:17
NT-proBNP Urgent
Troponin I Urgent
05/19/24 19:09
Ipratropium/Albuterol Sulfate [Duoneb] 3 ml INH R NOW ONE
CR Chest - 2 Views Urgent
Comment:
Reason For Exam: SOB
05/19/24 19:38
COVID-19 Antigen Urgent
Source: Nasal Swab
05/19/24 20:03
Furosemide [Lasix] 80 mg IV NOW STA
05/19/24 20:07
Piperacillin/Tazo 3.375 Gram [Zosyn] 3.375 gram in 50 ml IV NOW
05/19/24 20:20
Metoprolol [Lopressor] 100 mg PO NOW STA
05/19/24 21:17
Admit/Transfer Patient As Directed
Co-Sign Provider:
Level of Care: Inpatient admission
Assign to:: Telemetry
Physician / Group: Marleen
Diagnosis: CHF, Cellulitis
Reason for Telemetry: Arrhythmia
Date to Stop Telemetry: 05/22/24
Time to Stop Telemetry: 11:00
Reason for Hospitalization: IV diuretics, IV abx
Expected length of stay greater than two midnights?: Yes
ELOS- Estimated Length of Stay in days: 3
I certify the patient meets the requirements for IP care: Yes
PRN Pain Medication Management As Directed
May give lesser potent ordered pain med per pt: Yes
preference::
Protocol:: Medication orders for pain may be administered in a
manner that supports deferring to patient preference
when the pt is:
- Requesting an ordered lesser potent pain medication.
Least to most potent pain medications are defined
as: acetaminophen < NSAID < tramadol < opioids
(morphine, oxycodone, hydromorphone).
- Requesting a lesser dose of the same medication IF
ORDERED.
- Requesting a less intrusive route of administration
if both routes are prescribed by the provider (PO <
IV).
05/19/24 21:19
Code Status As Directed
Resuscitation Status: Full Code
05/19/24 21:41
Amiodarone [Pacerone] 100 mg PO NOW STA
Apixaban [Eliquis] 5 mg PO NOW STA
05/19/24 22:00
Flush (0.9% Sodium Chloride) [Flush (Nss)] See Dose Instructions IV PER PROTOCOL
05/19/24 22:03
Acetaminophen [Tylenol] 650 mg PO Q4HPRN PRN
Rosuvastatin Calcium [Crestor] 40 mg PO HS
05/19/24 22:03
I&O [Intake/ Output] As Directed
Frequency: q12h
Vital Signs As Directed
Frequency: Per unit guidelines
Weight As Directed
Frequency: Daily
05/19/24 22:55
Procalcitonin Urgent
PCT Algorithmm Indication: Respiratory
05/20/24 02:00
CeFAZolin 2 GRAM [Ancef] 2 grams in 10 ml IV Q8H
05/20/24 Breakfast
NPO
Allow oral meds: Yes
Allow clear liquids: 4hrs prior to procedure
Comment: may have unrestricted clear liquid up to 4 hrs prior to scheduled procedure
Basic Metabolic Panel IN AM
Complete Blood Count/No Diff IN AM
Magnesium IN AM
05/20/24 08:00
Amiodarone [Pacerone] 100 mg PO SUMOTHFRSA@0800,2000
Apixaban [Eliquis] 5 mg PO BID
Aspirin Low Dose EC [Aspir Low (Enteric Coated)] 162 mg PO DAILY
Furosemide [Lasix] 40 mg IV BID AT 0800,1600
Losartan [Cozaar] 50 mg PO DAILY
Metoprolol Xl [Toprol Xl] 100 mg PO BID
Venlafaxine Extended Release [Effexor Xr] 225 mg PO DAILY
tadalafil See Dose Instructions PO DAILY
05/20/24 18:00
Tamsulosin [Flomax] 0.4 mg PO QPM
05/22/24 11:00
DC Protocol for Telemetry ONCE
05/24/24 08:00
Amiodarone [Pacerone] 100 mg PO TUWE@0800
Abnormal Lab Results
05/19/24
14:39
WBC 11.9 H 10^3/uL
(4.8-10.8)
RBC 4.14 L 10^6/uL
(4.70-6.10)
Hgb 11.0 L g/dL
(13.0-18.0)
Hct 35.5 L %
(39.0-52.0)
MCH 26.6 L pg
(27.0-31.0)
MCHC 31.0 L g/dL
(33.0-37.0)
RDW 17.2 H %
(11.5-14.5)
Abs Immat Gran (auto) 0.1 H 10^3/uL
(0-0.05)
Absolute Neuts (auto) 8.9 H 10^3/uL
(1.4-6.5)
Absolute Monos (auto) 0.9 H 10^3/uL
(0.1-0.6)
Lymphocytes % 14.8 L %
(20.5-51.1)
Glucose 102 H mg/dl
(70-99)
05/19/24 14:39
05/19/24 14:39
Leukocytosis, H/H slighlty low. Glucose nonfasting. Troponin 0.030, Pro-BNP 4520
Vital Signs
Initial and Last Documented VS:
Initial Vital Signs
Temp Pulse Resp BP Pulse Ox
97.9 F 130 18 108/63 99
05/19/24 14:31 05/19/24 14:31 05/19/24 14:31 05/19/24 14:31 05/19/24 14:31
Last Documented Vital Signs
Temp Pulse Resp BP Pulse Ox
98.6 F 104 24 112/78 96
05/19/24 23:00 05/20/24 00:00 05/20/24 00:00 05/20/24 00:00 05/20/24 01:44
<Gavino Hays, DO - Last Filed: 05/19/24 20:25>
Orders/Labs/Results
Orders:
Orders
05/19/24 Breakfast
Cholesterol Lowering
At Your Request: Full Participation
Cholesterol Lowering: Sodium, 2 Gram
05/19/24 14:13
EKG [Electrocardiogram (*1)] Urgent
Reason for Study: Atrial Fibrillation
EKG- Treatment ONCE
05/19/24 14:39
Complete Blood Count/With Diff Urgent
Comprehensive Metabolic Panel Urgent
05/19/24 17:17
NT-proBNP Urgent
Troponin I Urgent
05/19/24 19:09
Ipratropium/Albuterol Sulfate [Duoneb] 3 ml INH R NOW ONE
CR Chest - 2 Views Urgent
Comment:
Reason For Exam: SOB
05/19/24 19:38
COVID-19 Antigen Urgent
Source: Nasal Swab
05/19/24 20:03
Furosemide [Lasix] 80 mg IV NOW STA
05/19/24 20:07
Piperacillin/Tazo 3.375 Gram [Zosyn] 3.375 gram in 50 ml IV NOW
05/19/24 20:20
Metoprolol [Lopressor] 100 mg PO NOW STA
05/19/24 21:17
Admit/Transfer Patient As Directed
Co-Sign Provider:
Level of Care: Inpatient admission
Assign to:: Telemetry
Physician / Group: Marleen
Diagnosis: CHF, Cellulitis
Reason for Telemetry: Arrhythmia
Date to Stop Telemetry: 05/22/24
Time to Stop Telemetry: 11:00
Reason for Hospitalization: IV diuretics, IV abx
Expected length of stay greater than two midnights?: Yes
ELOS- Estimated Length of Stay in days: 3
I certify the patient meets the requirements for IP care: Yes
PRN Pain Medication Management As Directed
May give lesser potent ordered pain med per pt: Yes
preference::
Protocol:: Medication orders for pain may be administered in a
manner that supports deferring to patient preference
when the pt is:
- Requesting an ordered lesser potent pain medication.
Least to most potent pain medications are defined
as: acetaminophen < NSAID < tramadol < opioids
(morphine, oxycodone, hydromorphone).
- Requesting a lesser dose of the same medication IF
ORDERED.
- Requesting a less intrusive route of administration
if both routes are prescribed by the provider (PO <
IV).
05/19/24 21:19
Code Status As Directed
Resuscitation Status: Full Code
05/19/24 21:41
Amiodarone [Pacerone] 100 mg PO NOW STA
Apixaban [Eliquis] 5 mg PO NOW STA
05/19/24 22:00
Flush (0.9% Sodium Chloride) [Flush (Nss)] See Dose Instructions IV PER PROTOCOL
05/19/24 22:03
Acetaminophen [Tylenol] 650 mg PO Q4HPRN PRN
Rosuvastatin Calcium [Crestor] 40 mg PO HS
05/19/24 22:03
I&O [Intake/ Output] As Directed
Frequency: q12h
Vital Signs As Directed
Frequency: Per unit guidelines
Weight As Directed
Frequency: Daily
05/19/24 22:55
Procalcitonin Urgent
PCT Algorithmm Indication: Respiratory
05/20/24 02:00
CeFAZolin 2 GRAM [Ancef] 2 grams in 10 ml IV Q8H
05/20/24 Breakfast
NPO
Allow oral meds: Yes
Allow clear liquids: 4hrs prior to procedure
Comment: may have unrestricted clear liquid up to 4 hrs prior to scheduled procedure
Basic Metabolic Panel IN AM
Complete Blood Count/No Diff IN AM
Magnesium IN AM
05/20/24 08:00
Amiodarone [Pacerone] 100 mg PO SUMOTHFRSA@0800,1999
Apixaban [Eliquis] 5 mg PO BID
Aspirin Low Dose EC [Aspir Low (Enteric Coated)] 162 mg PO DAILY
Furosemide [Lasix] 40 mg IV BID AT 0800,1600
Losartan [Cozaar] 50 mg PO DAILY
Metoprolol Xl [Toprol Xl] 100 mg PO BID
Venlafaxine Extended Release [Effexor Xr] 225 mg PO DAILY
tadalafil See Dose Instructions PO DAILY
05/20/24 18:00
Tamsulosin [Flomax] 0.4 mg PO QPM
05/22/24 11:00
DC Protocol for Telemetry ONCE
05/24/24 08:00
Amiodarone [Pacerone] 100 mg PO TUWE@0800
Abnormal Lab Results
05/19/24
14:39
WBC 11.9 H 10^3/uL
(4.8-10.8)
RBC 4.14 L 10^6/uL
(4.70-6.10)
Hgb 11.0 L g/dL
(13.0-18.0)
Hct 35.5 L %
(39.0-52.0)
MCH 26.6 L pg
(27.0-31.0)
MCHC 31.0 L g/dL
(33.0-37.0)
RDW 17.2 H %
(11.5-14.5)
Abs Immat Gran (auto) 0.1 H 10^3/uL
(0-0.05)
Absolute Neuts (auto) 8.9 H 10^3/uL
(1.4-6.5)
Absolute Monos (auto) 0.9 H 10^3/uL
(0.1-0.6)
Lymphocytes % 14.8 L %
(20.5-51.1)
Glucose 102 H mg/dl
(70-99)
05/19/24 14:39
05/19/24 14:39
Vital Signs
Initial and Last Documented VS:
Initial Vital Signs
Temp Pulse Resp BP Pulse Ox
97.9 F 130 18 108/63 99
05/19/24 14:31 05/19/24 14:31 05/19/24 14:31 05/19/24 14:31 05/19/24 14:31
Last Documented Vital Signs
Temp Pulse Resp BP Pulse Ox
98.6 F 104 24 112/78 96
05/19/24 23:00 05/20/24 00:00 05/20/24 00:00 05/20/24 00:00 05/20/24 01:44
Roneylt;MAXIMO Becerra - Last Filed: 05/20/24 02:58>
MDM/Problems Addressed
Differential Diagnosis Includes:
CHF, COVID,
MDM/Problems Addressed:
This is a 78 year old male that comes in with c/o SOB. States that he was to have a Cardioversion on May 24. States that the certified ophthalmic medical technician keeps putting this off as his WBC were elevated and he was told to follow up with the family doctor.
Patient states that now he is more SOB.
Will check labs, Chest x-ray. COVID.
Back into see patient With Dr. Hays. Explained that he would be admitted. His Pro-BNP is elevated and his chest x-ray looks a little full. Will also give patient and antibiotic for the left lower leg redness Hospitalist notified.
Chronic conditions affecting care: CAD and Arrhythmia
Acute Exacerbation and/or Progression of Chronic Illness: CAD and Arrhythmia
<MAXIMO Becerra - Last Filed: 05/20/24 02:58>
*Radiology
Radiology exam reviewed: preliminary read by ED provider (Chest- CHF with Small pleural effusion. ) and radiology read reviewed (Chest-Mild congestive heart failure. )
*Pulse Oximetry
Patient hypoxic: no
*EKG
Interpreted by ED Provider?: Yes
Heart Rate: 112
Rate: tachycardiac
Rhythm: a-fib
[place]: left axis deviation
QRS Pattern: normal QRS
Ischemia: no ischemia
*Dual Hose Cementer Interpretation
Rate: tachycardiac
Interpretation: abnormal
Heart Rate: 107
Rhythm: a-fib
*Critical Care Note
Total Time (30-74mins, 75-104mins- exclusive of procedures): Not Applicable
ED Attending Note
<MAXIMO Becerra - Last Filed: 05/20/24 02:58>
-
Portions of this chart may have been created with voice recognition software.� Occasional wrong word or��sound alike� substitutions may have occurred due to the inherent limitations of voice recognition software.
<Gavino Hays, DO - Last Filed: 05/19/24 20:25>
ED Attending Note
Patient seen and examined by attending physician: Yes
I performed the substantive portion of visit, reviewed & personally made and approve the management plan that is documented in note by myself or PRASHANTH.: Yes
ED Attending Note:
I have seen and evaluated the patient with a [id number] encounter. I have spoken to the advance practicer provider and involved in the medical history, the physical exam, medical decision making.
Evaluation and management service: agree unless noted differently below.
Results interpretation: agree unless noted differently below.
Focused HPI: 78-year-old male presenting with worsening shortness of breath. Patient went to A-fib last month and cardiology is setting him up for cardioversion. They have since increase his metoprolol and started amiodarone
Physical exam: Uncomfortable, tachypnea. Tachycardic and irregular. Cellulitis to left leg. Pitting edema to distal both lower extremities
Medical Decision Making: Chest x-ray concerning for CHF. Will give IV Lasix. Given the cellulitis and questional pneumonia, will give dose of Zosyn. Will admit for cardiac evaluation
Discharge Plan
Departure
Patient Disposition: Admit
Date of Disposition: 05/19/24
Time of Disposition: 20:12
Admit to: Telemetry
Presentation/result/management discussed w/ accepting MD/DO: Hospitalist
Patient with high blood pressure during this ER visit?: No
Condition: Good
Covid-19: Not Applicable
Discharge Problem:
CHF (congestive heart failure), SOB (shortness of breath), Cellulitis of left leg
Interventions
Interventions:
*Risk Screen - Suicide Last Done: 05/19/24 22:49
*General Assessment Last Done: 05/19/24 22:49
*Neglect/Abuse Screening Last Done: 05/19/24 22:49
*ED COVID-19 Vaccine History Last Done: 05/19/24 22:49
ED- Cardiac Assessment Last Done: 05/19/24 20:48
ED- Pulmonary Assessment Last Done: 05/19/24 20:48
[2024-05-19] MEDS: DUONEB 3 ML INH (19:38)
[2024-05-19 20:02] LABS: COVID-19 Antigen Negative (Negative)
[2024-05-19] MEDS: LOPRESSOR 100 MG PO (20:35)
[2024-05-19] MEDS: ZOSYN 50 IV (20:35)
[2024-05-19] MEDS: LASIX 80 MG IV (20:35)
--- NOTE | 2024-05-19 20:49 | HPS.HSE ---
Family Physician
-
Family Physician: Tanja Barker
Chief Complaint
-
Shortness of Breath
History of Present Illness
Patient is a 78 y/o male past medical history of CAD, CHF, A-fib, HTN, GERD and BPH who presents with shortness of breath. Patient notes he has been in a poorly controlled atrial fibrillation for the past month. He saw his cardiology last week and
plan was for cardioversion on May 24. In the meantime patient had blood work as well as CXR. CAR from 05/10 showed a hazy opacity in the right upper lobe, possibly atelectasis vs pneumonia. Patient reports he did not take any antibiotics, and
notes his cough improved though he continues with dyspnea on exertion. Patient notes some increased redness of his left lower extremity over the past few days. He denies any fevers, sweats or chills.
Medical History
Past Medical History
Past Medical History: Reports Other
Additional Past Medical History:
Coronary Artery Disease s/p Stent
Chronic HFpEF
Paroxysmal Atrial Fibrillation
Essential Hypertension
Hyperlipidemia
Depression
GERD
BPH
Chronic Back Pain
Past Surgical History: Reports Other
Additional Past Surgical History:
Appendectomy
Cholecystectomy
Left Knee Replacement
Left Hip
L2-L5 Laminectomy
Spine Stimulator
Penile Prosthesis
Social History
Tobacco: Former Smoker
Alcohol: Occasional
Drug: None
Personal:
Living: With Family
Family History
Family History: Not pertinent
Allergies / Home Medications
Allergies reflects when Allergies were last updated in [facility].
Home Medications with original date entered in [facility]
Allergy/Medication List:
Allergies
Allergy/AdvReac Type Severity Reaction Status Date / Time
No Known Allergies Allergy Verified 02/04/24 14:26
Home Medications
rosuvastatin 40 mg tablet (Crestor) 40 mg PO HS High Cholesterol 09/02/21
acetaminophen 650 mg tablet,extended release (Tylenol Arthritis Pain) 1,300 mg PO [id number] PRN mild pain 02/04/24
alfuzosin 10 mg tablet,extended release 24 hr 10 mg PO QPM Urinary Issue 02/04/24
famotidine 20 mg tablet 20 mg PO TIDPRN PRN stomach issues 02/04/24
tadalafil 5 mg tablet 5 mg PO DAILY Urinary Issue 02/04/24
venlafaxine 75 mg capsule,extended release 24 hr 225 mg PO DAILY Mental Health/Anxiety 02/04/24
apixaban 5 mg tablet (Eliquis) 5 mg PO BID #60 tabs 02/09/24
losartan 50 mg tablet 50 mg PO DAILY #30 tabs 02/12/24
amiodarone 200 mg tablet 100 mg PO SUMOTHFRSA@0800,2000 05/19/24
amiodarone 200 mg tablet 100 mg PO TUWE@0800 05/19/24
aspirin 81 mg tablet,delayed release 162 mg PO DAILY Blood Clot Prevention/Tx 05/19/24
furosemide 40 mg tablet 40 mg PO DAILY 05/19/24
metoprolol succinate 100 mg tablet,extended release 24 hr 100 mg PO BID 05/19/24
therapeutic multivitamin 1 tab PO DAILY 05/19/24
Review of Systems
-
A 12 point ROS was completed and negative except as noted: Yes
Constitutional: Denies Fever or Chills
Respiratory: Reports Cough and Trouble Breathing
Cardiac: Denies Chest Pain
Physical Exam
Vital Signs
Vital Signs
Temp Pulse Resp BP Pulse Ox
97.2 F 116 26 133/96 99
05/19/24 17:36 05/19/24 20:35 05/19/24 18:46 05/19/24 20:35 05/19/24 19:00
Physical Exam
General: Comfortable and Conversant
HEENT: Anicteric and Moist mucous membranes
Respiratory: Rales (More prominent on right than left) and Non Labored Respirations
Cardiac: S1/S2, Irregular Rhythm and Tachycardia
GI: Soft and Non Tender
Rectal: Deferred by Provider
Musculoskeletal: No Clubbing, No Cyanosis and Other (+1 pitting edema bilateral lower extremities)
Skin: Warm, Dry and Other (Mild erythema left lower extremity)
Neuro: Awake, Alert, Oriented and Nonfocal/grossly intact
Psych: Calm
Laboratory Results
-
05/19/24 14:39
05/19/24 14:39
Laboratory Results
Total Bilirubin 0.4 mg/dl (0.2-1.3) 05/19/24 14:39
AST 40 U/L (17-59) 05/19/24 14:39
ALT 41 U/L (0-50) 05/19/24 14:39
Alkaline Phosphatase 126 U/L (38-126) 05/19/24 14:39
Troponin I 0.030 ng/ml 05/19/24 17:17
Data Reviewed
-
Diagnostic Radiology: Report Reviewed by me
Lab Data: Labs Reviewed by me
Old Records: Reviewed
Impression/Plan
-
Acute on Chronic HFpEF, likely related to poorly controlled atrial fibrillation
-Consult Cardiology
-Continue Lasix 40mg IV BID
-Monitor Is&Os and Daily Weights
Abnormal Chest X-Ray
-Prior CXR 05/10 raised concern for possible pneumonia
-Official report on today's CXR is pending but overall appears improved, and patient reports improved cough
-Check procalcitonin
Persistent Atrial Fibrillation, rate with fair control
-Consult Cardiology
-Patient reports previously scheduled for cardioversion on 05/24 - Will keep NPO after midnight should cardiology opt for cardioversion tomorrow
-Continue amiodarone and metoprolol
-Continue Eliquis
Left Lower Extremity Cellulitis
-Continue Ancef
Coronary Artery Disease s/p Stent
-Continue aspirin
Essential Hypertension
-Continue losartan
Hyperlipidemia
-Continue Crestor
Depression
-Continue venlafaxine
BPH
-Continue alfuzosin and tadalafil
Chronic Back Pain s/p Spinal Stimulator
DVT proph: Arelyquis
Code Status: Full Code
--- NOTE | 2024-05-19 21:40 | W.PN.UPDATE ---
Update Note
Progress Note Update
Patient seen in conjunction with TRANSFER PROFESSOR. I agree with the findings on history and physical as well as the assessment and plan unless stated otherwise.
This is a 78-year-old male who has past medical history significant for CHF and atrial fibrillation. He is on anticoagulations 31 January. When he was last hospitalized he had been status post hip surgery with increased lower extremity edema
requiring aggressive diuresis. Patient reported that he is pending a cardioversion in 30 days. He had a follow-up with his outpatient construction engineer who noted that the patient was coughing and checked an x-ray. The x-ray shows possible
consolidation. He also had a slight white count. He was referred to his PMD. Instead the patient came to the ED for evaluation. He reported that he does have some redness of the left lower extremity without pain or tenderness and without fevers
or chills. This was secondary to a blister that he had when he had increased swelling in that leg.
In the emergency department here the patient was afebrile, blood pressure was stable at 133/96 with a pulse of 115. ECG shows atrial fibrillation at rate of 112. COVID test was negative. CBC had a white count of 11.9, electrolytes were within
normal limits. Chest x-ray shows possible right lower lobe increased opacity compared to prior. Troponin was negative. BNP was elevated at 6000 similar to prior.
Assessment and plan
Uncontrolled AFIB and CHF -I suspect patient has uncontrolled atrial fibrillation and worsening of his congestive heart failure. He also have possible pneumonia but has no particular symptoms at this time.
- admit to telemetry
- lasix 40mg iv bid for now
- continue amiodarone and metoprolol for rate control
- continue ac with apixaban
- NPO for possible cardioversion in am
- cardiology consultatation
ID - PNA? and cellulitis. Neither findings particularly impressive
- check procal
- ancef for cellulitis
DVT PPX - on apixaban
Code status - full code
[2024-05-19] MEDS: ELIQUIS 5 MG PO (22:50)
[2024-05-19] MEDS: PACERONE 100 MG PO (22:51)
[2024-05-19] MEDS: CRESTOR 40 MG PO (22:52)
[2024-05-19 23:36] LABS: Procalcitonin < 0.05 ng/ml (0.0-0.25)
[2024-05-20] VITALS (48 sets, daily range): BP systolic 72–140; BP diastolic 42–125; BMI 28.4
[2024-05-20] MEDS: ANCEF 10 IV ×2 (01:38→09:38)
[2024-05-20 05:47] LABS: Hematocrit 34.3 % (39.0-52.0); Mean Corp Hgb Conc. 32.1 g/dL (33.0-37.0); Mean Corpuscular Hgb 26.7 pg (27.0-31.0); Mean Corpuscular Volume 83.3 fL (80.0-94.0); Platelet Count 334 10^3/uL (130-400); Red Blood Cell Count 4.12 10^6/uL (4.70-6.10); Red Cell Dist. Width 17.2 % (11.5-14.5); White Blood Cell Count 13.7 10^3/uL (4.8-10.8)
[2024-05-20 06:05] LABS: Blood Urea Nitrogen 22 mg/dl (9-20); Calcium 8.7 mg/dl (8.4-10.2); Carbon Dioxide 28 mmol/L (22-30); Chloride 101 mmol/L (98-107); Estimated Creatinine Clearance 45 ml/min; Glucose 99 mg/dl (70-99); Magnesium 2.2 mg/dl (1.6-2.3); Potassium 3.6 mmol/L (3.5-5.1); Sodium 140 mmol/L (135-145); eGFR 55.88
--- NOTE | 2024-05-20 07:57 | CON.CAR ---
Addendum entered and electronically signed by Bashir Mcdaniel MD 05/20/24 11:19:
S/p DCCV with gnosticist of [facility], procedure note dictated
Addendum entered and electronically signed by MAXIMO Torres 05/20/24 09:41:
Physical Exam:
General: Well Developed, no acute distress
HEENT: Normocephalic and Anicteric
Respiratory: Clear b/l, Non Labored Respirations
Cardiac: S1/S2 and Irregular Rhythm
Breast: Deferred by me
GI: Soft, Non Tender, Non Distended and Normal Bowel Sounds
Rectal: Deferred by Me
Genito-urinary: No Costovertebral Tenderness
Musculoskeletal: No Clubbing and No Cyanosis, no LE edema
Skin: Warm and Dry, scabbed scratches noted to LLE
Neuro: AO x 3
Hematologic/Lymphatic: No Lymphadenopathy
Psych: Calm
Addendum entered and electronically signed by Imtiaz Bundy MD 05/20/24 08:54:
Patient seen and examined in collaboration with [employer]; agree with below.
-78-year-old male with paroxysmal atrial fibrillation (on Eliquis), CAD status-post remote PCI, chronic HFpEF, and hypertension presenting with cough and atrial fibrillation with slightly elevated heart rates.
-The patient was scheduled to undergo cardioversion next week.
-The patient appears to be fairly compensated on examination and his weight is lower than his previous admission.
-Patient will undergo cardioversion today; has not missed any doses of Eliquis over the past month.
-Can continue current home dose of Lasix 40 mg PO daily.
-Continue current doses of amiodarone and metoprolol succinate.
-Can follow-up with his primary Emt B as an outpatient after undergoing cardioversion today.
Original Note:
Consultation
Consultation Request
Date/Time Consultation Requested: 05/19/24 10:45p
Date/Time Consultation Performed: 05/20/24 7:45a
Requesting Provider: Josie Martinez PA-C
Performing Provider: MAXIMO Torres for Dr. Bundy
Reason for Consultation: Afib, HFpEF
Medical History
-
Chief Complaint: cough
History of Present Illness:
Mr. 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 He was seen by
cardiology recently with c/o cough and recurrent Afib. CXR ordered and done on 05/10/24 (concern for possible infiltrate) so he came to the ER for evaluation. He is set up for outpatient DCCV 05/24/[address] Coats. He is admitted to the
hospitalist service and we are consulted for rapid Afib. Currently he c/o fatigue from Afib. Denies missed doses of Eliquis. He reports stable weights at home without HF symptoms or acute weight gain.
Past Medical History
Past Medical History: Other (as above)
Past Surgical History: Orthopedic (left hip replacement 01/04/24)
Social History
Tobacco: Former Smoker
Alcohol: Occasional (2-3 drinks a week)
Personal:
Living: With Family
Family History
Family History: Reviewed & Not Pertinent
Allergies / Home Medications
Allergy/AdvReac Type Severity Reaction Status Date / Time
No Known Allergies Allergy Verified 02/04/24 14:26
�Medication �Instructions �Recorded �Confirmed �Type
rosuvastatin 40 mg tablet (Crestor) 40 mg PO HS High Cholesterol 09/02/21 05/19/24 History
acetaminophen 650 mg 1,300 mg PO [id number] PRN mild pain 02/04/24 05/19/24 History
tablet,extended release (Tylenol
Arthritis Pain)
alfuzosin 10 mg tablet,extended 10 mg PO QPM Urinary Issue 02/04/24 05/19/24 History
release 24 hr
famotidine 20 mg tablet 20 mg PO TIDPRN PRN stomach issues 02/04/24 05/19/24 History
tadalafil 5 mg tablet 5 mg PO DAILY Urinary Issue 02/04/24 05/19/24 History
venlafaxine 75 mg capsule,extended 225 mg PO DAILY Mental 02/04/24 05/19/24 History
release 24 hr Health/Anxiety
apixaban 5 mg tablet (Eliquis) 5 mg PO BID #60 tabs 02/09/24 05/19/24 Rx
losartan 50 mg tablet 50 mg PO DAILY #30 tabs 02/12/24 05/19/24 Rx
amiodarone 200 mg tablet 100 mg PO SUMOTHFRSA@0800,2000 05/19/24 05/19/24 History
amiodarone 200 mg tablet 100 mg PO TUWE@0800 05/19/24 05/19/24 History
aspirin 81 mg tablet,delayed 162 mg PO DAILY Blood Clot 05/19/24 05/19/24 History
release Prevention/Tx
furosemide 40 mg tablet 40 mg PO DAILY 05/19/24 05/19/24 History
metoprolol succinate 100 mg 100 mg PO BID 05/19/24 05/19/24 History
tablet,extended release 24 hr
therapeutic multivitamin 1 tab PO DAILY 05/19/24 05/19/24 History
Review of Systems
-
History Source: Patient
All other systems: Negative unless noted
Physical Exam
Vital Signs
Temp Pulse Resp BP Pulse Ox
98.6 F 109 22 128/89 96
05/19/24 23:00 05/20/24 07:02 05/20/24 07:02 05/20/24 07:02 05/20/24 01:44
Lab Results
05/20/24 04:56
05/20/24 04:56
Troponin I 0.030 ng/ml 05/19/24 17:17
Mos-D-Ljbpgguottm Pept 4520 pg/ml 05/19/24 17:17
Impression / Plan
-
AFib with RVR - recurrent.
- paroxysmal, newly diagnosed 01/2024 during admission.
- compliant with Eliquis 5mg BID, no missed doses.
- on Toprol and Amiodarone as outpatient.
- scheduled for outpatient DCCV by Dr. Coats 05/24/24.
- [id number] score is 5 for age2, HTN, CAD, CHF.
- plan for DCCV today then d/c home.
- can consider outpatient PVI.
HFpEF - acute on chronic.
- CXR with mild CHF, elevated proBNP.
- agree with IV Lasix.
- continue daily weights, education, sodium/fluid limitation.
- weight was 194 on d/c 01/2024 and today 186 lbs on admit.
- he was d/c 01/2024 home on ASA 81mg daily, Eliquis 5mg bid, Toprol XL 50mg bid, losartan 50mg daily, Farxiga 10mg daily, Aldactone 25mg daily, Crestor 40mg daily.
- reviewed med rec and not on Aldactone, Farxiga, or Crestor. unclear why.
- echo 02/05/24: EF 55-60%, moderate cLVH, dilated aortic root 4.0cm, no change 2021 echo.
CAD with hx multiple stents (2012 and 2014) - stable w/o angina.
- has 7 stents (3638-1039). We favor continuing low dose ASA along with Eliquis started for PAF (unless he bleeds then stop the ASA).
HTN - stable on meds.
- continue and monitor.
Data Reviewed
-
EKG: Tracing Personally Visualized and interpreted (Afib/Aflutter 112 bpm)
Medical Tests (Nuc Med, Echo etc): Report Reviewed by me (echo 02/05/24: EF 55-60%, moderate cLVH, dilated aortic root 4.0cm, no change 2021 echo.)
Labs: Labs Reviewed by me
Old Records: Reviewed
[2024-05-20] MEDS: EFFEXOR XR 225 MG PO (08:15)
[2024-05-20] MEDS: PACERONE 100 MG PO (08:15)
[2024-05-20] MEDS: COZAAR 50 MG PO (08:16)
[2024-05-20] MEDS: LASIX 40 MG IV (08:16)
[2024-05-20] MEDS: ASPIR LOW (ENTERIC COATED) 162 MG PO (08:16)
[2024-05-20] MEDS: ELIQUIS 5 MG PO (08:16)
[2024-05-20] MEDS: TOPROL XL 100 MG PO (08:16)
--- NOTE | 2024-05-20 10:35 | PTCARENOTE ---
Arrived to ER [address] Mullins at bedside. Reyna Valencia CRNA at bedside. Pt AAO X 3; Pt in Afib on monitor in 100's. NPO since 12am; Pt received Eliquis 5mg at [address] Ghosh aware pt ready for procedure.
--- NOTE | 2024-05-20 10:40 | PTCARENOTE ---
Dr Ghosh arrived; Consent obtained for Cardioversion
--- NOTE | 2024-05-20 10:43 | PTCARENOTE ---
Time out performed at 1047
Procedure start at 1047
See anesthesia record for Vital signs
Pt cardioverted with 200J at 1048
Case end at 1049
Post EKG done at 1055
1100 Pt awake alert and oriented X3
--- NOTE | 2024-05-20 11:17 | PTCARENOTE ---
Pt signed out by anesthesia
--- NOTE | 2024-05-20 11:19 | W.PN.HOSP.TC ---
Today's Communication/Plan
-
discharge home today
Assessment / Plan
Assessment / Plan
This is a 78-year-old male who has past medical history significant for CHF and atrial fibrillation. Admitted for shortness of breath, found to have atrial fibrillation with RVR, status post cardioversion, also treated for concern of left lower
extremity cellulitis
Acute on Chronic HFpEF, likely related to poorly controlled atrial fibrillation
Consult Cardiology
-Continue Lasix 40mg IV BID
-Monitor Is&Os and Daily Weights
05/20
Discharged home on oral Lasix
Abnormal Chest M-Lpq-lohmdjddj ruled out
-Prior CXR 05/10 raised concern for possible pneumonia
-Jacky chest x-ray showed;
Moderate cardiomegaly has progressed since prior examination. There is mild vascular congestion. Trace effusion blunting the posterior costophrenic angle. No focal interstitial or airspace opacity to indicate pneumonia. No pneumothorax.
- procalcitonin negative
Persistent Atrial Fibrillation, rate with fair control
-Consult Cardiology
-Status post cardioversion
-Continue amiodarone and metoprolol
-Continue Eliquis
Left Lower Extremity Cellulitis
-Continue Ancef-discharged home on doxycycline
Coronary Artery Disease s/p Stent
-Continue aspirin
Essential Hypertension
-Continue losartan
Hyperlipidemia
-Continue Crestor
Depression
-Continue venlafaxine
BPH
-Continue alfuzosin and tadalafil
Chronic Back Pain s/p Spinal Stimulator
DVT proph: Eliquis
Code Status: Full Code
Anticipated Discharge: Today
Subjective/Interval History
-
Date of Service: May 20, 2024
Patient seen and examined in the morning, no chest pain or shortness of breath.
Status post cardioversion and patient was seen again afternoon, at bedside.
Plan to be discharged home as per cardiology.
No change in his home medications.
Will be discharged on oral doxycycline for concern of left lower extremity cellulitis.
Objective Data
-
Labs:
Laboratory Results
05/20/24
04:56
WBC 13.7 H
Hgb 11.0 L
Hct 34.3 L
Plt Count 334
Sodium 140
Potassium 3.6
Chloride 101
Carbon Dioxide 28
BUN 22 H
Creatinine 1.3
Glucose 99
Calcium 8.7
Vital Signs:
Vital Signs
Temp Pulse Resp BP Pulse Ox
98.6 F 59 16 88/56 92
05/19/24 23:00 05/20/24 11:15 05/20/24 11:15 05/20/24 11:15 05/20/24 11:15
I&O
05/19/24 05/20/24 05/21/24
06:59 06:59 06:59
Output Total 2150 / 2150 980 / 980
Balance -2150 / -2150 -980 / -980
Physical Exam
-
General: Well Developed, Well Nourished, No Apparent Distress and Comfortable
HEENT: Normocephalic, Atraumatic, Moist Mucous Membranes, No Ptosis, PERRLA and Nose Appears Normal
Respiratory: Clear to Auscultation and Non Labored Respirations
Cardiac: Regular Rhythm, S1/S2 and Other (Patient was having A-fib in the morning but examined again afternoon and now regular sinus rhythm)
Breast: Deferred by me
GI: Soft, Nontender, Nondistended and Normal Bowel Sounds
Genito-urinary: No Costovertebral Tender
Musculoskeletal: No Clubbing, No Cyanosis, No Edema and Other (Left lower extremity mild erythema and scratch shara)
Skin: Warm
Neuro: Awake, Alert, Oriented, AO x 3 and No Motor Deficits
Psych: Calm
--- NOTE | 2024-05-20 11:27 | PTCARENOTE ---
Report given to Odilia RN; Pt AAO X 3 ; VSS; Pt denies pain/dizziness/nausea.
--- NOTE | 2024-05-20 13:16 | W.DCSUMMARY ---
Discharge Summary
Discharge Data
Date of Admission: 05/19/24
Date of Discharge: 05/20/24
-
Pending Results: No
Hospital Course
This is a 78-year-old male who has past medical history significant for CHF and atrial fibrillation. Admitted for shortness of breath, found to have atrial fibrillation with RVR, status post cardioversion, also treated for concern of left lower
extremity cellulitis
Acute on Chronic HFpEF, likely related to poorly controlled atrial fibrillation
Consult Cardiology
-Continue Lasix 40mg IV BID
-Monitor Is&Os and Daily Weights
05/20
Discharged home on oral Lasix
Abnormal Chest P-Oym-uwtpeimye ruled out
-Prior CXR 05/10 raised concern for possible pneumonia
-Jacky chest x-ray showed;
Moderate cardiomegaly has progressed since prior examination. There is mild vascular congestion. Trace effusion blunting the posterior costophrenic angle. No focal interstitial or airspace opacity to indicate pneumonia. No pneumothorax.
- procalcitonin negative
Persistent Atrial Fibrillation, rate with fair control
-Consult Cardiology
-Status post cardioversion
-Continue amiodarone and metoprolol
-Continue Eliquis
Left Lower Extremity Cellulitis
-Continue Ancef-discharged home on doxycycline
Coronary Artery Disease s/p Stent
-Continue aspirin
Essential Hypertension
-Continue losartan
Hyperlipidemia
-Continue Crestor
Depression
-Continue venlafaxine
BPH
-Continue alfuzosin and tadalafil
Chronic Back Pain s/p Spinal Stimulator
DVT proph: Eliquis
Code Status: Full Code
Discharge Plan
-
Patient Disposition: Home (Routine Discharge)
Discharge Diagnosis/Procedures: Atrial fibrillation with rapid ventricular rate.
Acute diastolic CHF.
Cellulitis
Diet: 2 Gram Sodium
Activity: No restrictions
Driving Restrictions: As prior to admission
Specialty Instructions: Weigh Daily- Call MD for wt gain/loss 3 lbs overnight/5 lbs in 1 week
Instructions: *PCP/Other Space Officer Heart Failure Instructions
Referrals:
Delfino Henning MD [Active] - in one to two weeks
Tanja Barker MD [Family Provider] -
Prescriptions:
New
doxycycline hyclate 100 mg capsule
100 mg PO BID Qty: 10 0RF
Continued
rosuvastatin [Crestor] 40 MG tablet
40 mg PO HS
venlafaxine 75 mg Capsule,Extended Release 24hr
225 mg PO DAILY
acetaminophen [Tylenol Arthritis Pain] 650 mg Tablet Extended Release
1,300 mg PO [id number] PRN (Reason: mild pain)
alfuzosin 10 mg Tablet Extended Release 24 Hr
10 mg PO QPM
tadalafil 5 mg Tablet
5 mg PO DAILY
famotidine 20 MG tablet
20 mg PO TIDPRN PRN (Reason: stomach issues)
Eliquis 5 mg Tablet
5 mg PO BID Qty: 60 0RF
losartan 50 mg Tablet
50 mg PO DAILY Qty: 30 0RF
furosemide 40 mg Tablet
40 mg PO DAILY
amiodarone 200 mg Tablet
100 mg PO TUWE@0800
amiodarone 200 mg Tablet
100 mg PO SUMOTHFRSA@0800,1999
metoprolol succinate 100 mg Tablet Extended Release 24 Hr
100 mg PO BID
therapeutic multivitamin Tablet
1 tab PO DAILY
aspirin 81 MG tablet,delayed release (DR/EC)
162 mg PO DAILY
Discharge Orders:
Discharge Patient (As Directed); Ordered 05/20/24
Ordered By: Rosangela Wilson
Discharge Date and Time
Print Language: ESTONIAN
--- NOTE | 2024-05-20 15:00 | PTCARENOTE ---
Cardiology and hospitalist made aware of pt.s BP. 87/57 MAP 67 HR 61. Okay to discharge to home. Pt denies feeling lightheaded or dizzy.
== END 2024-05-20 16:17 | disposition home or self-care (01) | DRG 291 ==
LOC: ED 21:56
PROVIDERS: Clinical Nurse Specialist Family Health; Emergency Medicine; Physician Assistant Medical; ADMITTING PHYSICIAN Internal Medicine; ATTENDING PHYSICIAN General Practice; CONSULT PHYSICIAN Internal Medicine Cardiovascular Disease; EMERGENCY PHYSICIAN Student in an Organized Health Care Education/Training Program; FAMILY PHYSICIAN Family Medicine
PROC: 5A2204Z Restoration of Cardiac Rhythm, Single (ICD-10-PCS; 2024-05-20)
DX: I11.0 Hypertensive heart disease with heart failure (principal); I50.33 Acute on chronic diastolic (congestive) heart failure; J18.9 Pneumonia, unspecified organism; I48.19 Other persistent atrial fibrillation; L03.116 Cellulitis of left lower limb; Z11.52 Encounter for screening for COVID-19; R51.9 Headache, unspecified; E78.00 Pure hypercholesterolemia, unspecified; F32.A Depression, unspecified; G89.29 Other chronic pain; I25.10 Atherosclerotic heart disease of native coronary artery without angina pectoris; K21.9 Gastro-esophageal reflux disease without esophagitis; L40.9 Psoriasis, unspecified; N40.0 Benign prostatic hyperplasia without lower urinary tract symptoms; M54.9 Dorsalgia, unspecified; Z96.652 Presence of left artificial knee joint; Z96.642 Presence of left artificial hip joint; Z87.891 Personal history of nicotine dependence; Z95.5 Presence of coronary angioplasty implant and graft; Z98.1 Arthrodesis status; Z90.49 Acquired absence of other specified parts of digestive tract; Z87.01 Personal history of pneumonia (recurrent); Z85.828 Personal history of other malignant neoplasm of skin; Z96.82 Presence of neurostimulator; Z79.01 Long term (current) use of anticoagulants; Z79.82 Long term (current) use of aspirin
CPT/HCPCS: 71046; 80048; 80053; 83735; 83880; 84145; 84484; 85025; 85027; 87811; 92960; 93005; 96365; 96375; 99285

== ENCOUNTER 2024-06-13 17:02 | Emergency (ER) | payer OTHER, SELFPAY ==
[2024-06-13] VITALS (11 sets, daily range): BP systolic 109–136; BP diastolic 73–104
--- NOTE | 2024-06-13 17:04 | ED.GENMED ---
ED Provider Triage
<William Kelly PA-C - Last Filed: 06/13/24 17:06>
-
Patient seen by provider in Triage?: Seen in Triage
Attestation: A medical screening examination has been initiated by a qualified medical provider. Based on the assessment performed at this time, it has been determined that an emergent medical condition may exist and the patient has been informed
that further medical evaluation and possible additional diagnostic testing may be needed.
HPI: 78-year-old male presenting to the emergency department for evaluation after his Apple Watch told him he was in atrial fibrillation. Patient had increased heart rate today. He is on Eliquis. Contacted his senior scrum master who advised he come to
the ER for further evaluation. Patient is asymptomatic at this time. Patient has seen Dr. Henning in past but follows with cardiology at [place]
GENERAL: Alert , in no apparent distress
EYE: No visual abnormalities.
NECK: Trachea midline
ENT: No visible abnormalities.
LUNGS: No acute respiratory distress
NEUROLOGICAL: Alert and oriented
SKIN: Skin intact. No visible changes.
MUSCULOSKELETAL: Moving extremities normally
PSYCH: Normal and appropriate interaction.
This is a medical evaluation conducted in person to initiate diagnostic evaluation and provide initial therapeutics. Please see further documentation by the treating clinician.
History of Present Illness
<William Kelly PA-C - Last Filed: 06/13/24 17:06>
General
Chief Complaint: Cardiac Symptoms
Time Seen by Provider: 06/13/24 18:58
<Anibal Bellamy MD - Last Filed: 06/13/24 21:16>
General
Source: patient and spouse
Exam Limitations: none
Nursing documentation reviewed up to this point in time: agreed with
History of Present Illness
History of Present Illness:
78-year-old male with a past medical history as documented presents to the emergency room for evaluation of tachycardia�he was referred by his senior scrum master for consideration for cardioversion. Patient reports that last night his watch notified him
that he was tachycardic and in atrial fibrillation. He says that he went to bed hoping that it would improve overnight but this morning he remained tachycardic and so he called to make an appoint with his senior scrum master, Dr. Coats. He was seen
in the office and cardiogram showed A-fib with RVR; senior scrum master gave him an extra dose of metoprolol and told him that if it did not improve his tachycardia in 2 hours that he should go to the emergency room for cardioversion. Patient is
asymptomatic�he says that he does not have an did not have any palpitations, chest pain, dizziness/lightheadedness, shortness of breath. He is on Eliquis and reports compliance including with this morning's dose.
Past History
<William Kelly PA-C - Last Filed: 06/13/24 17:06>
Past History
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
ED Past Surgical History: Appendectomy, Cardiac (Stent), Cholecystectomy, Orthopedic (Laminectomy/spinal fusion L5/S1, Left knee replacement, Left hip replacement, ) and Urological (Penile Implant)
Social History
Tobacco: Former smoker
Alcohol: Occasional
Drug: None
Personal:
Living: with family
Review of Systems
<Anibal Bellamy MD - Last Filed: 06/13/24 21:16>
Review of Systems
All Other Systems: ROS reviewed and negative except as documented in HPI and ROS
Constitutional: Denies fatigue
Respiratory: Denies trouble breathing
Cardiac: Denies chest pain, palpitations or syncope
ABD/GI: Denies abdominal pain, nausea or vomiting
Musculoskeletal: Denies edema
Neurological: Denies dizzy or headache
Phy Exam
<Anibal Bellamy MD - Last Filed: 06/13/24 21:16>
Physical Exam
Physical Exam:
General: Awake, alert, oriented x3; no acute distress
Head: Normocephalic, atraumatic
Eyes: Conjunctiva normal, sclera anicteric
Throat: Airway intact, handling secretions
Neck: Trachea midline, no JVD
Lungs: Clear to auscultation bilaterally, no wheezing, rales, rhonchi
Heart: Tachycardia with irregularly irregular rhythm, no murmurs, gallops, or rubs
Abd: Soft, non distended, nontender
Neuro: No gross deficits
Extremities: No edema in extremities, warm and well-perfused
Scores
<Anibal Bellamy MD - Last Filed: 06/13/24 21:16>
Heart Failure Risk
Heart Failure Risk Score: Not Applicable
Heart Score for Chest Pain Patients
STEMI patient?: Not applicable
Withdrawal Assessment of Alcohol
Withdrawal Assessment Completed?: Not applicable
Course
<William Kelly PA-C - Last Filed: 06/13/24 17:06>
Orders/Labs/Results
Orders:
Orders
06/13/24 17:06
Electrocardiogram (*1) Urgent
Reason for Study: Atrial Fibrillation
EKG- Treatment ONCE
06/13/24 17:11
Basic Metabolic Panel Urgent
Complete Blood Count/With Diff Urgent
Magnesium Urgent
TSH Urgent
06/13/24 19:10
Propofol [Diprivan] 20 ml .ROUTE .STK-MED
06/13/24 19:28
EKG [Electrocardiogram (*1)] Urgent
Reason for Study: Atrial Fibrillation
06/13/24 19:29
EKG- Treatment ONCE
06/13/24 20:22
Midodrine [ProAmatine] 10 mg .ROUTE .STK-MED ONE
Abnormal Lab Results
06/13/24
17:11
WBC 11.2 H 10^3/uL
(4.8-10.8)
RBC 4.58 L 10^6/uL
(4.70-6.10)
Hgb 12.2 L g/dL
(13.0-18.0)
Hct 38.2 L %
(39.0-52.0)
MCH 26.6 L pg
(27.0-31.0)
MCHC 31.9 L g/dL
(33.0-37.0)
RDW 17.7 H %
(11.5-14.5)
Absolute Neuts (auto) 7.8 H 10^3/uL
(1.4-6.5)
Absolute Monos (auto) 0.9 H 10^3/uL
(0.1-0.6)
Lymphocytes % 18.4 L %
(20.5-51.1)
Sodium 134 L mmol/L
(135-145)
BUN 28 H mg/dl
(9-20)
Glucose 127 H mg/dl
(70-99)
06/13/24 17:11
06/13/24 17:11
Vital Signs
Initial and Last Documented VS:
Initial Vital Signs
Temp Pulse Resp BP Pulse Ox
36.7 C 115 20 123/81 96
06/13/24 17:05 06/13/24 17:05 06/13/24 17:05 06/13/24 17:05 06/13/24 17:05
Last Documented Vital Signs
Temp Pulse Resp BP Pulse Ox
36.7 C 60 17 136/91 96
06/13/24 17:05 06/13/24 20:15 06/13/24 20:15 06/13/24 20:15 06/13/24 20:15
<Anibal Bellamy MD - Last Filed: 06/13/24 21:16>
Orders/Labs/Results
Orders:
Orders
06/13/24 17:06
Electrocardiogram (*1) Urgent
Reason for Study: Atrial Fibrillation
EKG- Treatment ONCE
06/13/24 17:11
Basic Metabolic Panel Urgent
Complete Blood Count/With Diff Urgent
Magnesium Urgent
TSH Urgent
06/13/24 19:10
Propofol [Diprivan] 20 ml .ROUTE .STK-MED
06/13/24 19:28
EKG [Electrocardiogram (*1)] Urgent
Reason for Study: Atrial Fibrillation
06/13/24 19:29
EKG- Treatment ONCE
06/13/24 20:22
Midodrine [ProAmatine] 10 mg .ROUTE .STK-MED ONE
Abnormal Lab Results
06/13/24
17:11
WBC 11.2 H 10^3/uL
(4.8-10.8)
RBC 4.58 L 10^6/uL
(4.70-6.10)
Hgb 12.2 L g/dL
(13.0-18.0)
Hct 38.2 L %
(39.0-52.0)
MCH 26.6 L pg
(27.0-31.0)
MCHC 31.9 L g/dL
(33.0-37.0)
RDW 17.7 H %
(11.5-14.5)
Absolute Neuts (auto) 7.8 H 10^3/uL
(1.4-6.5)
Absolute Monos (auto) 0.9 H 10^3/uL
(0.1-0.6)
Lymphocytes % 18.4 L %
(20.5-51.1)
Sodium 134 L mmol/L
(135-145)
BUN 28 H mg/dl
(9-20)
Glucose 127 H mg/dl
(70-99)
06/13/24 17:11
06/13/24 17:11
Vital Signs
Initial and Last Documented VS:
Initial Vital Signs
Temp Pulse Resp BP Pulse Ox
36.7 C 115 20 123/81 96
06/13/24 17:05 06/13/24 17:05 06/13/24 17:05 06/13/24 17:05 06/13/24 17:05
Last Documented Vital Signs
Temp Pulse Resp BP Pulse Ox
36.7 C 60 17 136/91 96
06/13/24 17:05 06/13/24 20:15 06/13/24 20:15 06/13/24 20:15 06/13/24 20:15
Procedures
<Anibal Bellamy MD - Last Filed: 06/13/24 21:16>
Cardioversion
Indication:: Afib
Performed by:: Anibal Bellamy MD
Synchronized?: Yes
Energy Used: 200 joules
Number of attempts: 1
Successful?: Yes
Complications: none
ASA Risk Score: Class III
Any reaction or bad outcome to prior sedation/anesthesia?: No history of a reaction
Sedation level to be attained: moderate
Chart and allergies reviewed: Yes
Patient reassessed prior to sedation: Yes
Time out completed at (validating right patient & procedure): 19:24
History of difficult intubation: No
Airway free of obstruction: Yes
Patient has a gag reflex: Yes
Patient is able to open mouth: Yes
Patient has no dentures: Yes
Patient has no loose teeth: Yes
Medication administered by Provider during Moderate Sedation: IV Propofol (mg)
Total dose administered: 40
Time drug administered: 19:24
Start Time: 19:24
Stop Time: 19:34
<Anibal Bellamy MD - Last Filed: 06/13/24 21:16>
MDM/Problems Addressed
Differential Diagnosis Includes:
Atrial fibrillation
MDM/Problems Addressed:
78-year-old male presents to the emergency room with tachycardia noted on his watch; he is asymptomatic. Found to be in atrial fibrillation with RVR by his senior scrum master and was given an extra dose of metoprolol and when this did not improve his
symptoms was referred to the emergency room for cardioversion. He denies any symptoms here. He is tachycardic but otherwise normal vitals. His EKG does confirm A-fib with RVR. He had lab work sent in triage including a CBC and a CMP which showed
no clinically significant abnormalities. His thyroid studies are normal. I do long discussion with the patient he wishes to proceed with ED cardioversion and I think this is a reasonable plan given clear onset and full anticoagulation on board.
Obtained consent and form was filed in the medical record.
Patient successfully cardioverted as documented in procedure note. Patient feeling well after cardioversion. Heart rate 50s to 60s. Repeat EKG confirms sinus rhythm. Will monitor status post cardioversion if he remains asymptomatic with normal
vitals and sinus rhythm we will plan to discharge with cardiology follow-up.
Patient continues to feel well, taking p.o., asymptomatic, sinus rhythm with stable vitals. Stable for discharge with cardiology follow-up.
Chronic conditions affecting care:
Atrial fibrillation
<Anibal Bellamy MD - Last Filed: 06/13/24 21:16>
*Pulse Oximetry
Patient hypoxic: no
*EKG
Interpreted by ED Provider?: Yes
Heart Rate: 129
Rate: tachycardiac
Rhythm: a-fib
[place]: left axis deviation
QRS Pattern: other (Left anterior fascicular block)
Ischemia: non-specific ST changes
*Critical Care Note
Total Time (30-74mins, 75-104mins- exclusive of procedures): Not Applicable
Data Reviewed
Source: patient, records and spouse
ED Attending Note
<William Kelly PA-C - Last Filed: 06/13/24 17:06>
-
Portions of this chart may have been created with voice recognition software.� Occasional wrong word or��sound alike� substitutions may have occurred due to the inherent limitations of voice recognition software.
Discharge Plan
Departure
Patient Disposition: Home (Routine Discharge)
Date of Disposition: 06/13/24
Time of Disposition: 20:24
Patient with high blood pressure during this ER visit?: No
Discharge Problem:
Atrial fibrillation status post cardioversion
Instructions: Atrial fibrillation - Discharge instructions, MODERATE SEDATION ADULT
Prescriptions:
No Action
rosuvastatin [Crestor] 40 MG tablet
40 mg PO HS
venlafaxine 75 mg Capsule,Extended Release 24hr
225 mg PO DAILY
acetaminophen [Tylenol Arthritis Pain] 650 mg Tablet Extended Release
1,300 mg PO [id number] PRN (Reason: mild pain)
alfuzosin 10 mg Tablet Extended Release 24 Hr
10 mg PO QPM
tadalafil 5 mg Tablet
5 mg PO DAILY
famotidine 20 MG tablet
20 mg PO TIDPRN PRN (Reason: stomach issues)
Eliquis 5 mg Tablet
5 mg PO BID Qty: 60 0RF
losartan 50 mg Tablet
50 mg PO DAILY Qty: 30 0RF
furosemide 40 mg Tablet
40 mg PO DAILY
amiodarone 200 mg Tablet
100 mg PO TUWE@0800
amiodarone 200 mg Tablet
100 mg PO SUMOTHFRSA@0800,1999
metoprolol succinate 100 mg Tablet Extended Release 24 Hr
100 mg PO BID
therapeutic multivitamin Tablet
1 tab PO DAILY
aspirin 81 MG tablet,delayed release (DR/EC)
162 mg PO DAILY
doxycycline hyclate 100 mg capsule
100 mg PO BID Qty: 10 0RF
Referrals:
Alli Coats MD [Non-Admitting Privileges] - Call in 1-3 days for appt
Activity Restrictions/Additional Instructions:
Thank you for visiting the Emergency Department at [facility].
1. Please schedule a follow up appointment as directed. Call first thing tomorrow morning to make an appointment.
2. If indicated, please take your medications as instructed and indicated on discharge paperwork.
3. If any of your symptoms do not improve, or persist, or become more severe within 6-12 hours, please return to the emergency department for further care.
4. Please return to the emergency department if you develop a headache, neck pain/stiffness, fever greater than 100.4F, chest pain, shortness of breath, persistent nausea, vomiting, slurred speech, difficulty walking, numbness/tingling, weakness,
signs of infection or any other symptoms that are worrisome to you.
Please call [phone] if you have any questions.
Interventions
Interventions:
*Risk Screen - Suicide Last Done: 06/13/24 20:39
*General Assessment Last Done: 06/13/24 17:05
*Neglect/Abuse Screening Last Done: 06/13/24 20:39
ED- Fall Risk Assessment Last Done: 06/13/24 20:39
*ED COVID-19 Vaccine History Last Done: 06/13/24 18:54
*Nursing Disposition Last Done: 06/13/24 20:39
ED- Pulmonary Assessment Last Done: 06/13/24 19:07
ED- Cardiac Assessment Last Done: 06/13/24 19:07
Discharge Date and Time
Discharge Date/Time: 06/13/24 20:40
Print Language: MONGOLIAN
[2024-06-13 17:19] LABS: % Basophils 0.6 % (0-2); % Eosinophils 2.2 % (0-6); % Immature Granulocytes 0.3 % (0-0.5); % Lymphocytes 18.4 % (20.5-51.1); % Monocytes 8.3 % (1.7-9.3); % Neutrophils 70.2 % (42.2-75.2); Absolute Basophils 0.1 10^3/uL (0-0.2); Absolute Eosinophils 0.3 10^3/uL (0-0.7); Absolute Lymphocytes 2.1 10^3/uL (1.2-3.4); Absolute Monocytes 0.9 10^3/uL (0.1-0.6); Absolute Neutrophils 7.8 10^3/uL (1.4-6.5); Hematocrit 38.2 % (39.0-52.0); Hemoglobin 12.2 g/dL (13.0-18.0); Mean Corp Hgb Conc. 31.9 g/dL (33.0-37.0); Mean Corpuscular Hgb 26.6 pg (27.0-31.0); Mean Corpuscular Volume 83.4 fL (80.0-94.0); Mean Platelet Volume 9.1 fL (7.4-10.4); Nucleated Red Blood Cells % 0 % (-); Platelet Count 274 10^3/uL (130-400); Red Blood Cell Count 4.58 10^6/uL (4.70-6.10); Red Cell Dist. Width 17.7 % (11.5-14.5); White Blood Cell Count 11.2 10^3/uL (4.8-10.8)
[2024-06-13 18:07] LABS: TSH 2.97 uIU/ml (0.47-4.68)
[2024-06-13 18:13] LABS: Blood Urea Nitrogen 28 mg/dl (9-20); Calcium 9.1 mg/dl (8.4-10.2); Carbon Dioxide 22 mmol/L (22-30); Chloride 101 mmol/L (98-107); Glucose 127 mg/dl (70-99); Magnesium 2.3 mg/dl (1.6-2.3); Potassium 4.4 mmol/L (3.5-5.1); Sodium 134 mmol/L (135-145); eGFR > 60.00
== END 2024-06-13 20:40 | disposition home or self-care (01) ==
LOC: EMR 17:02
PROVIDERS: Physician Assistant Medical; EMERGENCY PHYSICIAN Emergency Medicine
DX: I48.91 Unspecified atrial fibrillation (principal); Z87.891 Personal history of nicotine dependence
CPT/HCPCS: 92960; 99285; 99152; 80048; 83735; 84443; 85025; 93005

== ENCOUNTER 2024-06-23 19:09 | Emergency (ER) | payer OTHER, SELFPAY ==
[2024-06-23] VITALS (8 sets, daily range): BP systolic 92–137; BP diastolic 71–100; BMI 30.7
[2024-06-23 19:33] LABS: % Basophils 0.7 % (0-2); % Eosinophils 2.4 % (0-6); % Immature Granulocytes 0.3 % (0-0.5); % Lymphocytes 22.1 % (20.5-51.1); % Monocytes 9.2 % (1.7-9.3); % Neutrophils 65.3 % (42.2-75.2); Absolute Basophils 0.1 10^3/uL (0-0.2); Absolute Eosinophils 0.3 10^3/uL (0-0.7); Absolute Lymphocytes 2.3 10^3/uL (1.2-3.4); Absolute Neutrophils 6.8 10^3/uL (1.4-6.5); Hematocrit 39.5 % (39.0-52.0); Hemoglobin 12.5 g/dL (13.0-18.0); Mean Corp Hgb Conc. 31.6 g/dL (33.0-37.0); Mean Corpuscular Hgb 26.5 pg (27.0-31.0); Mean Corpuscular Volume 83.9 fL (80.0-94.0); Mean Platelet Volume 9.1 fL (7.4-10.4); Nucleated Red Blood Cells % 0 % (-); Platelet Count 301 10^3/uL (130-400); Red Blood Cell Count 4.71 10^6/uL (4.70-6.10); Red Cell Dist. Width 17.7 % (11.5-14.5); White Blood Cell Count 10.4 10^3/uL (4.8-10.8)
[2024-06-23 19:52] LABS: ALT (SGPT) 33 U/L (0-50); AST (SGOT) 39 U/L (17-59); Albumin 4.1 g/dl (3.5-5.0); Alkaline Phosphatase 122 U/L (38-126); Blood Urea Nitrogen 20 mg/dl (9-20); Calcium 9.3 mg/dl (8.4-10.2); Carbon Dioxide 28 mmol/L (22-30); Chloride 100 mmol/L (98-107); Glucose 93 mg/dl (70-99); Potassium 4.8 mmol/L (3.5-5.1); Sodium 136 mmol/L (135-145); Total Bilirubin 0.8 mg/dl (0.2-1.3); Total Protein 6.9 g/dl (6.3-8.2); eGFR > 60.00
--- NOTE | 2024-06-23 22:17 | ED.GENMED ---
History of Present Illness
General
Chief Complaint: Heart Rate Problem
Source: patient and family
Exam Limitations: none
Time Seen by Provider: 06/23/24 22:04
Nursing documentation reviewed up to this point in time: agreed with
History of Present Illness
History of Present Illness:
Pleasant 78-year-old male presents to the emergency department with atrial fibrillation with rapid ventricular response. He noticed this because he had a Fitbit on a 2 in the morning and it alerted him that he was in A-fib. He spoke with his
junior java developer, Dr. Oden at [facility] who suggested he take a double dose of metoprolol. He spent the entire day in atrial fibrillation and was advised to come to emergency department for evaluation. Patient had a similar occurrence
10 days ago and was cardioverted here. Patient has no chest pain or shortness of breath.
Vital signs are stable. Patient not hypoxic
Nursing note reviewed. I agree with nursing documentation up to this point in time.
Home Meds and allergies reviewed.
NUMBER AND COMPLEXITY OF PROBLEMS ADDRESSED AT THE ENCOUNTER
� Chronic conditions affecting care:Chronic atrial fibrillation
� Acute Exacerbation and/or Progression of Chronic Illness: Chronic A-fib
� Differential Diagnosis includes: A-fib with rapid ventricular response
AMOUNT AND/OR COMPLEXITY OF DATA TO BE REVIEWED AND ANALYZED
I performed an independent evaluation of the following and my interpretation is:
EKG:
Pulse Ox: Not Hypoxic
Foreign Broadcast Specialist: Sinus Rhythm
CT:
X-rays:
Ultrasound:
Laboratory Studies:
Other:
Review of other/old records:
Clinical information was obtained by an independent historian:
Prescriptions/Medications Considered but not given:
Further testing considered but not performed:
RISK OF COMPLICATIONS AND/OR MORBIDITY OR MORTALITY OF PATIENT MANAGEMENT
Social determinants of health affecting care: Good Social Support
Discussion with other providers: I spoke with Dr. Henning, cardiology who stated that repeat cardioversion would not be an issue. He will facilitate an appointment with Dr. Bruce
Escalation of care including admission/observation vs risk of discharge considered: After being observed in the emergency department, patient is stable for discharge.
CRITICAL CARE NOTE:
Total Time (exclusive of procedures):
Update:
Past History
Past History
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
ED Past Surgical History: Appendectomy, Cardiac (Stent), Cholecystectomy, Orthopedic (Laminectomy/spinal fusion L5/S1, Left knee replacement, Left hip replacement, ) and Urological (Penile Implant)
Social History
Tobacco: Former smoker
Alcohol: Occasional
Drug: None
Personal:
Living: with family
Phy Exam
General Physical Exam
General Presentation: well appearing and no apparent distress
General Skin: warm and dry
General Habitus: normal
General Mental: alert
General Hydration: appears well hydrated
ENT Exam
ENT Exam: EOMI, pharynx normal, neck supple and normocephalic
Eye Exam
Eye Exam: PERRL, cornea clear and conjunctiva normal
Cardiovascular Exam
Cardiovascular Exam: irregularly irregular
Pulmonary Exam
Pulmonary Exam: lungs clear, no respiratory distress, no rales, no crackles, no rhonchi, no stridor, no wheezing and no cough
Gastrointestinal Exam
Gastrointestinal Exam: normal bowel sounds, non tender, soft, no organomegaly, no pulsatile mass and non distended
Neurological Exam
Neurological Exam: alert, oriented x3, no motor deficits and speech normal
Musculoskeletal Exam
Musculoskeletal Exam: full ROM and no edema
Skin Exam
Skin Exam: normal color, warm/dry, no rash and no petechia
Psychiatric Exam
Psychiatric Exam: normal mood/affect
Course
Orders/Labs/Results
Orders:
Orders
06/23/24 19:10
Electrocardiogram (*1) Urgent
Reason for Study: Atrial Fibrillation
EKG- Treatment ONCE
06/23/24 19:26
Complete Blood Count/With Diff Urgent
Comprehensive Metabolic Panel Urgent
TSH Urgent
Comment: ADD ON
06/23/24 22:14
Diltiazem 125 mg/125 ml Nss [Cardizem] 125 mg in 125 ml IV NOW
Initial dose in mg/hr, then titrate:: 5
Titrate to keep:: Heart rate 80-100 bpm
Titrate by mg/hr:: 5 mg/hr
Frequency of titrations (minutes):: 15
Maximum dose in mg/hr:: 15
Diltiazem HCl [Cardizem] 20 mg IV NOW STA
06/23/24 22:17
Add On- LAB Urgent
Tests Added?: TSH
06/24/24 00:16
Propofol [Diprivan] 20 ml .ROUTE .STK-MED
06/24/24 00:53
EKG [Electrocardiogram (*1)] Urgent
Reason for Study: Atrial Fibrillation
Comment: post cardioversion
EKG- Treatment ONCE
Abnormal Lab Results
06/23/24
19:26
Hgb 12.5 L g/dL
(13.0-18.0)
MCH 26.5 L pg
(27.0-31.0)
MCHC 31.6 L g/dL
(33.0-37.0)
RDW 17.7 H %
(11.5-14.5)
Absolute Neuts (auto) 6.8 H 10^3/uL
(1.4-6.5)
Absolute Monos (auto) 1.0 H 10^3/uL
(0.1-0.6)
06/23/24 19:26
06/23/24 19:26
Vital Signs
Initial and Last Documented VS:
Initial Vital Signs
Temp Pulse Resp BP Pulse Ox
98.1 F 113 18 120/83 98
06/23/24 19:18 06/23/24 19:18 06/23/24 19:18 06/23/24 19:18 06/23/24 19:18
Last Documented Vital Signs
Temp Pulse Resp BP Pulse Ox
97.9 F 66 13 127/79 97
06/24/24 02:01 06/24/24 01:45 06/24/24 01:45 06/24/24 01:45 06/24/24 01:45
Procedures
Cardioversion
Indication:: Afib
Performed by:: Myself
Synchronized?: Yes
Energy Used: 200 joules
Number of attempts: 1
Successful?: Yes
Complications: none
ASA Risk Score: Class II
Any reaction or bad outcome to prior sedation/anesthesia?: No history of a reaction
Sedation level to be attained: moderate
Chart and allergies reviewed: Yes
Patient reassessed prior to sedation: Yes
Time out completed at (validating right patient & procedure): 00:33
History of difficult intubation: No
Airway free of obstruction: Yes
Patient has a gag reflex: Yes
Patient is able to open mouth: Yes
Patient has no dentures: Yes
Patient has no loose teeth: Yes
Medication administered by Provider during Moderate Sedation: IV Propofol (mg)
Total dose administered: 60
Time drug administered: 00:34
Start Time: 00:33
Stop Time: 00:43
*Critical Care Note
Total Time (30-74mins, 75-104mins- exclusive of procedures): Not Applicable
ED Attending Note
-
Portions of this chart may have been created with voice recognition software.� Occasional wrong word or��sound alike� substitutions may have occurred due to the inherent limitations of voice recognition software.
Discharge Plan
Departure
Patient Disposition: Home (Routine Discharge)
Date of Disposition: 06/24/24
Time of Disposition: 01:51
Patient with high blood pressure during this ER visit?: Yes
Discharge Problem:
Atrial fibrillation, persistent, afib with rvr
Instructions: Atrial Fibrillation (DC), Cardioversion - Discharge instructions, MODERATE SEDATION ADULT
Prescriptions:
No Action
rosuvastatin [Crestor] 40 MG tablet
40 mg PO HS
venlafaxine 75 mg Capsule,Extended Release 24hr
225 mg PO DAILY
acetaminophen [Tylenol Arthritis Pain] 650 mg Tablet Extended Release
1,300 mg PO [id number] PRN (Reason: mild pain)
alfuzosin 10 mg Tablet Extended Release 24 Hr
10 mg PO QPM
tadalafil 5 mg Tablet
5 mg PO DAILY
famotidine 20 MG tablet
20 mg PO TIDPRN PRN (Reason: stomach issues)
Eliquis 5 mg Tablet
5 mg PO BID Qty: 60 0RF
losartan 50 mg Tablet
50 mg PO DAILY Qty: 30 0RF
furosemide 40 mg Tablet
40 mg PO DAILY
amiodarone 200 mg Tablet
100 mg PO TUWE@0800
amiodarone 200 mg Tablet
100 mg PO SUMOTHFRSA@0800,2000
metoprolol succinate 100 mg Tablet Extended Release 24 Hr
100 mg PO BID
therapeutic multivitamin Tablet
1 tab PO DAILY
aspirin 81 MG tablet,delayed release (DR/EC)
162 mg PO DAILY
doxycycline hyclate 100 mg capsule
100 mg PO BID Qty: 10 0RF
Referrals:
Delfino Henning MD [Active] -
Swathi Bruce MD [Active] -
Tanja Barker MD [Family Provider] -
Activity Restrictions/Additional Instructions:
It was a pleasure meeting you and taking part in your care. We hope for your continued healing and wellness.
Please read discharge instructions in their entirety. However, they are for general education and may not describe your exact diagnosis at discharge. Information on your ER visit and medical conditions were discussed with you along with appropriate
follow up information...
If indicated, please take your medications as instructed and indicated on discharge paperwork.
Please schedule a follow up appointment as directed. Call to schedule an appointment
Please return to the emergency department with ANY change in, persisting, or worsening of symptoms. If any of your symptoms do not improve, or persist, or become more severe within 6-12 hours, please return to the emergency department for further
care.
Please return to the emergency department if you develop a headache, neck pain/stiffness, fever greater than 100.4F, chest pain, shortness of breath, persistent nausea, vomiting, slurred speech, difficulty walking, numbness/tingling, weakness, signs
of infection or any other symptoms that are worrisome to you.
If you have any questions or concerns please do not hesitate to call the Hospital at or E-mail me directly at [email or web address]
Interventions
Interventions:
*Risk Screen - Suicide Last Done: 06/23/24 19:18
*General Assessment Last Done: 06/23/24 19:18
*Neglect/Abuse Screening Last Done: 06/23/24 19:18
ED- Fall Risk Assessment Last Done: 06/24/24 01:28
*ED COVID-19 Vaccine History Last Done: 06/23/24 21:58
*Nursing Disposition Last Done: 06/24/24 02:02
ED- Cardiac Assessment Last Done: 06/23/24 21:58
ED- Pulmonary Assessment Last Done: 06/23/24 21:58
Discharge Date and Time
Discharge Date/Time: 06/24/24 02:09
Print Language: ARGENTINE
[2024-06-23] MEDS: CARDIZEM 20 MG IV (22:23)
[2024-06-23] MEDS: CARDIZEM 125 IV (22:26)
[2024-06-23 23:29] LABS: TSH 2.97 uIU/ml (0.47-4.68)
[2024-06-24] VITALS (17 sets, daily range): BP systolic 99–130; BP diastolic 66–84
== END 2024-06-24 02:09 | disposition home or self-care (01) ==
LOC: EMR 19:09
PROVIDERS: Emergency Medicine; EMERGENCY PHYSICIAN Student in an Organized Health Care Education/Training Program; FAMILY PHYSICIAN Family Medicine
DX: I48.19 Other persistent atrial fibrillation (principal); E78.00 Pure hypercholesterolemia, unspecified; I10 Essential (primary) hypertension; I25.10 Atherosclerotic heart disease of native coronary artery without angina pectoris; F32.A Depression, unspecified; K21.9 Gastro-esophageal reflux disease without esophagitis; Z85.828 Personal history of other malignant neoplasm of skin; Z87.891 Personal history of nicotine dependence; Z90.49 Acquired absence of other specified parts of digestive tract; Z95.5 Presence of coronary angioplasty implant and graft; Z96.642 Presence of left artificial hip joint; Z96.652 Presence of left artificial knee joint; Z98.1 Arthrodesis status
CPT/HCPCS: 99283; 92960; 96374; 96376; 80053; 84443; 85025; 93005

== ENCOUNTER 2024-07-21 06:16 | Day surgery (SDC) | payer OTHER, SELFPAY ==
[2024-07-21] VITALS (13 sets, daily range): BP systolic 98–138; BP diastolic 61–89; BMI 30.3
[2024-07-21 08:50] LABS: ACT-LR - POC 334 Seconds (116-155)
[2024-07-21 09:30] LABS: ACT-LR - POC 385 Seconds (116-155)
[2024-07-21 09:51] LABS: ACT-LR - POC > 397 Seconds (116-155)
--- NOTE | 2024-07-21 10:01 | ITS.CL.ABL ---
1 Year Olds [employer] - Ablation
Ablation
Procedure Report:
AFIB ablation:
Mr. Flores is a very pleasant 78 yr old gentleman with symptomatic persistent AF and atrial flutters failed Amiodarone and on Eliquis, is recommended for atrial fibrillation ablation.
Date of the Procedure:
07/21/2024
Indications:
Persistent atrial fibrillation / atrial flutter
Pre-Operative Diagnosis:
Persistent atrial fibrillation / atrial flutter
Post-Operative Diagnosis:
Persistent atrial fibrillation / atrial flutter
Procedure Performed:
Atrial fibrillation ablation with Pulsed-Field approach for pulmonary vein isolation
Roof dependent atrial flutter ablation
Posterior wall isolation
Performing Physician:
Swathi Bruce MD
Assistants:
EP staff
Anesthesia:
See anesthesia records
Detailed Description of the Procedure:
Written informed consent was obtained from the patient after a full explanation of the risks and benefits of the procedure including the risks of sedation and anesthesia.
The patient was brought to the electrophysiology laboratory in stable condition in fasting state. Continuous electrocardiographic and hemodynamic monitoring was initiated.
The initial rhythm was sinus rhythm
The procedure site was meticulously prepared with surgical scrub and allowed to dry with no pooling. Sterile draping was applied to cover the procedure site. The image intensifier was draped with sterile bag and positioned over the patient. After
infusion of local anesthetic, vascular access was obtained under ultrasound guidance and sheaths were placed over guide wire as detailed below.
Sheath and Catheter Placement:
The following catheters / sheaths were placed
Sheaths:
��������� 17Fr steerable sheath ([employer]�, [employer]) in right femoral
��������� 9Fr in right femoral vein
Catheters:
��������� SETH HD Grid mapping catheter � at locations of RA, LA
��������� Farawave� PFA catheter
��������� ICE catheter -AcuNav - at locations of RA, SVC, and RV.
Intracardiac ECHO:
An 8-Marshallese AcuNav intracardiac ECHO (ICE) probe was advanced through the 9-Marshallese sheath in the right femoral vein into the right atrium under fluoroscopic and ICE ultrasound image guidance and a baseline ECHO study was performed. The left atrial
size was dilated. There was moderate tricuspid regurgitation. The aortic valve was grossly normal. There was normal left ventricular systolic functions. There is no pericardial effusion. All the four veins were identified and has flow identified.
There was good flow noted in the ALBERT.
During the procedure, ICE was used for monitoring of complications, guidance of trans-septal puncture, monitor the catheter position and tracking ablation lesions. No change in the pericardial space noted throughout the procedure.
Trans-septal Puncture:
Heparin was initiated and infused to maintain appropriate ACT. A pigtail guidewire was advanced through the 8-Marshallese sheath in the right femoral vein into the superior vena cava under fluoroscopic and ICE guidance. The 9-Marshallese sheath was exchanged
for a Faradrive sheath which was advanced into the superior vena cava. A transseptal VersaCross RF pigtail via Faradrive connect system was utilized to perform the trans-septal puncture. The apparatus was withdrawn until it was in contact with the
fossa ovalis. The position was adjusted based on fluoroscopy and ultrasound images from ICE. Under fluoroscopic, hemodynamic and ICE ultrasound guidance, left atrium was cannulated by applying RF energy. Once atrial septum was cannulated, the
pigtail wire was advanced into the left atrium. The guide wire was advanced into the left superior pulmonary vein. Both the sheath and the dilator was advanced into the left atrium. The dilator with the needle was withdrawn. Blood was aspirated from
the Faradrive sheath and arterial blood confirmed. The sheath was flushed. Saline injection noted into the left atrium on ICE. The mapping catheter was advanced in the sheath into the left pulmonary vein. Left atrial pressure was measured.
3D Electroanatomic Mapping:
Using the HD Grid catheter advanced through sheath into the left atrium, an electroanatomic map (EAM) of the left atrium was created using [employer] SETH mapping system. The map was used for localization of catheter position and tacking of ablation
lesions.
The EAM of the left atrium showed 4 pulmonary veins with all 4 veins electrically connected to the body the LA. It showed only scattered areas of low voltage on the posterior and anterior wall of the LA in AF but had good signals in sinus rhythm.
The LA was dilated in size.
Following the EAM, preparation were made for ablation.
Ablation:
Ablation # 1: Pulmonary vein Isolation:
Glycopyrrolate 0.2 mg was given prior to the placement of ablation. Using [email or web address] pulsed field ablation system, pulmonary vein isolation was achieved. First the ablation catheter was placed in the LSPV and ostial ablation lesions were performed in
an �Kent� formation of the Farawave configuration and a counter clock estrada rotation was done and ablated to cover the area between the electrodes. Then the catheter was placed on the antral location in �Flower� configuration and multiple ablation
lesions were placed circumferentially on the antrum of the vein.
In the similar fashion, the LIPV were isolated.
Then the catheter was moved to right sided veins. The ostial and antral ablations were placed as noted above.
Ablation #2: Roof dependent flutter ablation
The LA was mapped again in sinus rhythm and fractionated signals noted in the posterior wall and there were non-sustained atrial flutter was noted that could not be mapped and terminated with catheter in the roof area. Decision was made to proceed
with roof dependent flutter ablation.
This was consistent with roof dependent atrial flutter sharon with extensive scar on the posterior wall and channels conduction on the posterior wall.
Using the pulsed field ablation catheter, the catheter was placed between left superior pulmonary vein and right severe pulmonary vein with series of overlapping ablation lesions placed.
Ablation # 3: Posterior wall isolation:
Using the pulsed field ablation catheter, the catheter was placed on the posterior wall and moved around the posterior wall to have adequate contact and ablations were placed isolating the posterior wall.
EPS and Confirmation of the PVI and bidirectional block:
Following achievement of entrance block at the pulmonary veins, pacing from the HD catheter in each of the four veins at 10 milliamps for 2 milliseconds showed entrance and exit block. All PVI were rechecked at the end of the case and remained
isolated. Entrance and exit block were demonstrated in all veins.
Post ablation Electroanatomic mapping:
Once ablation was completed, the EAM of the LA was done again in sinus rhythm with excellent demarcation of LA myocardium and isolated antral tissue. There was only little scattered scar noted on the anterior wall.
The ALBERT had healthy signals and was not isolated.
Procedure End
ICE study was done again that showed no epicardial accumulation. No complications noted.
Following the completion of the EP study, catheters were removed. Protamine 40 mg was given at the end of the procedure and ACT was checked repeatedly. The sheaths were removed and hemostasis achieved with �Figure of 8� and manual compression after
acceptable ACT is achieved.
Left atrial Pressure:
Mean LA pressure was 22mmHg
Mean RA pressure was 17 mmHg.
Estimated Blood loss:
<10 cc
Specimens Removed:
None.
Implants / Devices:
None
Urine output:
None
Packs / Drains/ Tubes:
None
Instrument / Sponge Count Correct:
Yes
Complications of the Procedure:
None
Condition of Patient at Time of Transfer:
Hemodynamically stable with no neurological or vascular compromise.
Summary:
Successful atrial fibrillation ablation with Pulsed Field approach for pulmonary vein isolation, roof dependent flutter ablation and posterior wall isolation.
Recommendation:
Observe post op in recovery and IV lasix along with steroids.
Diuresis for elevated filling pressure. Foleys catheter in place. �
Steroids for active wheezing and hypoxia noted pre-op as advised by the laser beam cutter.
Figures from the Procedure:
Figure 1: The electroanatomic mapping (EAM) of the left atrium with bipolar voltage (purple indicates normal electrical activity with jiménez as no myocardial muscle electric activity indicating a line of block or scar.
cc: Dr. Alli Coats.
[2024-07-21] MEDS: SOLU-CORTEF 100 MG IV (10:43)
--- NOTE | 2024-07-21 14:59 | W.PN.UPDATE ---
Addendum entered and electronically signed by MAXIMO Norris 07/21/24 17:03:
Pt still having some hypoxia, gave another 40mg iv lasix and he voiding 300cc, sats 94% on RA, feels much better. He is stable for d/c home now.
Original Note:
Update Note
Progress Note Update
78 yo WM s/p PVI (same day). He denies cp, mild dyspnea and wheezing with dry cough, his LA pressure was elevated and was given IV lasix 40mg with ~1L out. He will start his inhaler prescribed by his sourcing consultant and we will initiate steroids for 5
days with 100mg iv dose today. He will decrease amiodarone to 100mg daily, metoprolol 100mg bid and resume Eliquis at home tonight. He will increase lasix to 40mg twice daily with metolazone for 3 days. Activity restrictions reviewed. He will get
BMP in 1 week. He is for d/c home after 3pm if groin stable and able to void.
[2024-07-21] MEDS: LASIX 40 MG IV (16:03)
== END 2024-07-21 17:21 | disposition home or self-care (01) ==
LOC: CATH 06:16
PROVIDERS: ATTENDING PHYSICIAN Internal Medicine Cardiovascular Disease; FAMILY PHYSICIAN Family Medicine; OTHER PHYSICIAN Internal Medicine
DX: I48.19 Other persistent atrial fibrillation (principal); Z79.899 Other long term (current) drug therapy; Z79.01 Long term (current) use of anticoagulants; Z79.82 Long term (current) use of aspirin; Z79.52 Long term (current) use of systemic steroids; I08.3 Combined rheumatic disorders of mitral, aortic and tricuspid valves; I25.10 Atherosclerotic heart disease of native coronary artery without angina pectoris; I10 Essential (primary) hypertension; K21.9 Gastro-esophageal reflux disease without esophagitis; E78.00 Pure hypercholesterolemia, unspecified; F32.A Depression, unspecified
CPT/HCPCS: 93306; C1732; C1894; C1769; C1892; C1759; 85347; 86850; 86900; 86901; 93005; 93655; 93656; 93657; C1733; C1766

== ENCOUNTER → 2024-12-23 13:42 | Outpatient (REF) | payer OTHER, SELFPAY | LOC: HWRAD 13:42 | PROVIDERS: ATTENDING PHYSICIAN Psychiatry & Neurology Neurology; FAMILY PHYSICIAN Family Medicine | DX: R29.90 Unspecified symptoms and signs involving the nervous system (principal) | CPT/HCPCS: 70450 ==